=== PATIENT | female | born 1940 | race Caucasian/White ===

== ENCOUNTER 2022-03-06 21:18 | Inpatient (IN) | payer MEDICARE, SELFPAY ==
[2022-03-06] VITALS (14 sets, daily range): BP systolic 106–132; BP diastolic 52–73; PULSE 85–107; RESP 10–23; TEMP 36.8–37.3; O2SAT 95
--- NOTE | ~2022-03-06 | CT_ITS ---
EXAMINATION:CT diagnostic chest w con DATE: 03/07/2022 10:17 INDICATION: Abnormal chest radiograph. TECHNIQUE: Computed tomography (CT) of the chest was performed with 75 mL Omnipaque 350 intravenous c ontrast. Automated exposure control and iterative reconstruction technique were employed. The dose-le ngth product (DLP) was 154.34 mGy-cm. COMPARISON: Chest 2 views 03/06/2022 FINDINGS: There is mild scarring at the lung apices. There are airspace and groundglass opacities in left upper lobe predominantly involving apicoposterior segment with air bronchograms, consistent with pneumonia. There is mild involvement of adjacent superior segment left lower lobe. There is bronchie ctasis in right middle lobe and lingula. There is mild atelectasis in the inferior lungs. There is mi ld scarring in paraspinal right lower lobe. Calcified left lung nodules and calcified left hilar and mediastinal lymph nodes are consistent with old granulomatous disease. There is a trace left pleural effusion. The heart size is normal. No pericardial effusion. 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 IMPRESSION: 1. Left-sided pneumonia. Reviewed, dictated and finalized at location A. IMPRESSION: 1. Left-sided pneumonia.
--- NOTE | ~2022-03-06 | XR_ITS ---
EXAMINATION: XR chest 2V DATE: 03/06/2022 22:32 INDICATION: Fever and dizziness. TECHNIQUE: Frontal and lateral views of the chest were obtained. COMPARISON: None. FINDINGS: There are airspace opacities in apicoposterior segment left upper lobe. There is mild scarr ing at the lung apices. A calcified left lung nodule and calcified left hilar lymph nodes are consist ent with old granulomatous disease. No pleural effusion or pneumothorax. The heart size is normal. IMPRESSION: 1. Airspace opacities in apicoposterior segment left upper lobe, consistent with pneumonia. Chest CT with contrast is recommended to exclude malignancy. Reviewed, dictated and finalized at location A. IMPRESSION: 1. Airspace opacities in apicoposterior segment left upper lobe, consistent wit h pneumonia. Chest CT with contrast is recommended to exclude malignancy.
--- NOTE | 2022-03-06 22:08 | ECG_ITS ---
Measurements Intervals Reynolds Rate: 93 P: 162 WY: 125 QRS: 229 QRSD: 95 T: 134 QT: 352 QTc: 438 Interpretive Statements SINUS RHYTHM VENTRICULAR PREMATURE COMPLEXES LIMB LEAD REVERSAL LOW VOLTAGE- PRECORDIAL LEADS CANNOT RULE OUT SEPTAL INFARCT, AGE INDETERMINATE BASELINE ARTIFACT- I, II, AVR, AVL, V2, V4 ABNORMAL ECG NO PREVIOUS ECG AVAILABLE FOR COMPARISON Electronically Signed On 03-07-2022 6:51:02 CDT by Shan Guillaume D.O.
--- NOTE | 2022-03-06 22:11 | ED.GENADULT ---
HPI - General Adult General Chief complaint: Dizziness Stated complaint: fever Time Seen by Provider: 03/06/22 21:52 History of Present Illness HPI narrative: This is a 81-year-old female presenting to the ED with flu-like symptoms for 5 days. Patient's symptoms started on Monday. They include headaches, body aches, fatigue weakness and decreased oral intake. Her course has been fluctuating since then but has still been running fevers as high as 103.5. Patient came in today because she has been having episodes of palpitations and had 1 episode of presyncope that resolved when she sat down in a chair and rested. Patient has not been having chest pain, difficulty breathing, abdominal pain, nausea vomiting or diarrhea. She denies being vaccinated against COVID. She has no sick contacts at home. Related Data Home Medications Medication Instructions Recorded Confirmed alendronate 70 mg tablet mg PO 03/06/22 amlodipine 10 mg tablet mg 03/06/22 atorvastatin 10 mg tablet mg 03/06/22 levothyroxine 25 mcg tablet mcg 03/06/22 olmesartan 20 mg tablet mg 03/06/22 Allergies Allergy/AdvReac Type Severity Reaction Status Date / Time codeine Allergy Unconscious Verified 03/06/22 22:14 Review of Systems Review of Systems: CONSTITUTIONAL: Denies night sweats. EYES: No eye pain ENT: Denies rhinorrhea CARDIOVASCULAR: Denies palpitations RESPIRATORY: Denies hemoptysis GASTROINTESTINAL: Denies hematemesis GENITOURINARY: Denies hematuria. SKIN: Denies rash MUSCULOSKELETAL: Denies myalgia. NEUROLOGIC: Denies weakness. PSYCHIATRIC: Denies delusions [facility] Past Medical History Medical History (Updated 03/07/22 @ 00:06 by Martin Boyd MD) Hyperlipidemia Hypertension Surgical History Surgical History (Updated 03/06/22 @ 22:14 by Martin Boyd MD) H/O total knee replacement Exam Narrative: APPEARANCE: No apparent distress. Head atraumatic. EYES: PERRLA/EOMI, NOSE: Normal no drainage NECK: Supple, Trachea midline RESPIRATORY: CTAB, No increased work of breathing. CARDIOVASCULAR: S1S2 appreciated ABDOMINAL: Soft, nontender, nondistended, MUSCULOSKELETAl: No obvious deformities NEURO: Alert. Moving 4/4 extremities SKIN:: Warm, dry. Normal color PSYCHIATRIC: Normal affect Course Vital Signs Vital signs: Vital Signs Temperature 99.1 F 03/06/22 21:27 Pulse Rate 107 H 03/06/22 21:27 Respiratory Rate 20 03/06/22 21:27 Blood Pressure 106/73 03/06/22 21:27 Pulse Oximetry 95 03/06/22 21:27 Oxygen Delivery Room Air 03/06/22 21:27 Temperature 98.2 F 03/06/22 23:00 Pulse Rate 106 H 03/06/22 22:15 Respiratory Rate 14 03/06/22 22:15 Blood Pressure 115/65 03/06/22 22:01 Pulse Oximetry 95 03/06/22 21:27 Oxygen Delivery Room Air 03/06/22 21:27 Medical Decision Making MDM Narrative Medical decision making narrative: This is an 81-year-old female presenting ED with 5 days of flu-like symptoms. Basic lab work including troponin EKG and chest x-ray have been ordered. Urinalysis and COVID have also been ordered. Patient will be given 1 L of fluids for suspected dehydration. patient's lab work was significant for a small elevation in white blood cell count. The patient's urine was positive for nitrates, leuk esterases, greater than 75 white blood cells per high-power field. Patient's symptoms are consistent with a urinary tract infection. She will be started on ceftriaxone. Patient's initial troponin was negative. She has potassium of 3.3 to be repleted orally. Covid was negative. When I re-evaluated the patient her vital signs had improved. However my interpretation of her seat installer was atrial bigeminy. This resolved while I was in the room. This could be what is responsible for the patient's palpitations. The patient will be admitted to [facility] with [facility] for further evaluation. Vital Signs Vital Signs: Vital Signs Temperature 99.1 F 0
[2022-03-06 22:19] LABS: Glucose Point of Care 126 mg/dl (65-105)
[2022-03-06 22:32] LABS: Basophils Percent Auto 0.2 % (0.2-1.2); Eosinophils Percent Auto 0.1 % (0-4.4); Hematocrit 34.8 % (37.0-47.0); Hemoglobin 11.7 g/dL (12.0-15.0); Immature Granulocyte Absolute 0.04 K/mm3 (0.00-0.031); Immature Granulocyte Percent A 0.4 % (0-0.5); Lymphocytes Percent Auto 6.5 % (18.3-44.2); Mean Corpuscular HGB Conc 33.6 g/dl (32-36); Mean Corpuscular Hemoglobin 30.1 pg (26-34); Mean Corpuscular Volume 89.5 fl (80-100); Mean Platelet Volume 10.9 fl (7.4-10.4); Monocytes Absolute Auto 0.8 K/mm3 (0.1-0.6); Monocytes Percent Auto 7.8 % (2.6-8.5); Neutrophils Absolute Auto 9.2 K/mm3 (1.3-6.7); Platelet Count Result 187 k/mm3 (150-375); Red Blood Count 3.89 M/mm3 (4.2-5.4); Red Cell Distribution Width 12.4 % (11.5-14.5); White Blood Count 10.8 K/mm3 (4.5-10.0)
[2022-03-06] MEDS: ACETAMINOPHEN 500 MG TABLET 1000 MG PO (22:34)
[2022-03-06 22:35] LABS: SARS-CoV-2 RNA PCR Negative
[2022-03-06 22:45] LABS: Anion Gap 12 mmol/L (8-16); Blood Urea Nitrogen 13 mg/dL (7-17); Calcium 8.2 mg/dL (8.4-10.2); Carbon Dioxide 22 mmol/L (22-30); Chloride 103 mmol/L (98-107); Estimated CRCL calculation 37 ml/min; Estimated Glomerular Filt Rate 60; Glucose 129 mg/dL (65-110); Potassium 3.3 mmol/L (3.4-5.0); Sodium 137 mmol/L (137-145)
[2022-03-06 22:49] LABS: Appearance Urine Cloudy (Clear); Bilirubin Urine Negative (Negative); Blood Urine 2+ (Negative); Color Urine Yellow (Yellow); Glucose Urine UA Negative (Negative); Ketones Urine 1+ mg/dL (Negative); Leukocyte Esterase Ur 2+ LEU/UL (Negative); Nitrate Urine Positive (Negative); Protein Urine 2+ mg/dL (Negative); Specific Grav Ur 1.015 (1.001-1.035)
[2022-03-06 22:54] LABS: Add Urine Microscopic? YES; Bacteria Urine Trace /hpf; Mucus Urine Rare /lpf; Squamous Epithelial Cell Urine Rare /hpf (Few); WBC Urine >75 /hpf
[2022-03-06 22:56] LABS: Troponin I < 0.012 ng/mL (0.000-0.034)
[2022-03-06] MEDS: SODIUM CHLORIDE 0.9% IV 1,000 ML 999 ML IV CONT (23:23)
--- NOTE | 2022-03-06 23:55 | PM.IMHP ---
H&P: HPI History of Present Illness Date/Time: 03/06/22 23:55 Chief Complaint: Fever and dizziness. Narrative: This is a very pleasant 81-year-old with hypertension, hyperlipidemia, and hypothyroidism who presented to the ED via EMS from home for evaluation of fever and dizziness. She has not been feeling well off and on for the last 5 days with generalized malaise, fever to 103.5, decreased appetite, fatigue, and mild low back ache. She had a non-productive cough for one day this week but that has since resolved. She also complains of intermittent dizziness and sensations of racing heart which has been an ongoing issue for quite sometime. She sees no pattern as to when it occurs and she does not have chest pain or discomfort with that. She denies vertigo, reporting more lightheadedness, and she has not had any neurologic symptoms. Vital signs were stable on arrival to the emergency department. Pertinent labs include a white blood cell count of 10.8, hemoglobin of 11.7, sodium 137, potassium 3.3, BUN 13, creatinine 0.90, magnesium 1.9, TSH 1.950. Urine was positive for nitrates, 2+ leukocyte esterase, greater than 75 WBC, and trace bacteria. SARS-CoV-2 by PCR was negative. She is being admitted in this setting for IV antibiotics for presumed urinary tract infection though interestingly she has not had any symptoms of dysuria, urgency, hesitancy, or the like. She has had some aching in her lower back, however. Review of Systems Review of Systems: Twelve systems were reviewed. No syncope or near syncope. She has not had exertional chest pain or shortness of breath. She does have intermittent palpitations and has been told that she has PVCs in the past. On occasion her heart feels like it beats irregularly though she has no known history of atrial fibrillation. Except as documented, all other systems were reviewed and are negative. [facility] Past Medical History Medical History (Updated 03/07/22 @ 01:43 by Anaid Ndiaye PA-C) Hyperlipidemia Hypertension Hypothyroidism Surgical History Surgical History (Updated 03/07/22 @ 00:21 by Anaid Ndiaye PA-C) History of hysterectomy History of left knee replacement Family History Family History Sibling Cancer Father Cancer Mother Dementia Social History Social History (Updated 03/07/22 @ 16:00 by Anaid Ndiaye PA-C) Social History: The patient lives in her own home in [place]. She ambulates unassisted. 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 Lifelong nonsmoker. No alcohol or illicit substance abuse. She designates her daughter, Queta Baxter, as her surrogate decision maker and she wishes to be a full code. Spiritual care concerns: No Meds Home Medications and Allergies Home Medications Medication Instructions Recorded Confirmed Type alendronate 70 mg tablet 70 mg PO WEEKLY 03/06/22 03/07/22 History amlodipine 10 mg tablet 10 mg PO DAILY 03/06/22 03/07/22 History atorvastatin 10 mg tablet 10 mg PO DAILY 03/06/22 03/07/22 History levothyroxine 25 mcg tablet 25 mcg PO DAILY 03/06/22 03/07/22 History olmesartan 20 mg tablet 20 mg PO DAILY 03/06/22 03/07/22 History Allergies Allergy/AdvReac Type Severity Reaction Status Date / Time codeine Allergy Unconscious Verified 03/07/22 03:55 Vital Signs Vital Signs - 24 hr 03/06/22 21:27 03/06/22 21:49 03/06/22 21:50 Temperature 99.1 F Pulse Rate 107 H 101 H 98 Respiratory Rate 20 18 10 L Blood Pressure 106/73 127/52 L Pulse Oximetry 95 Oxygen Delivery Room Air 03/06/22 22:00 03/06/22 22:01 03/06/22 22:15 Temperature 99.2 F Pulse Rate 102 H 103 H 106 H Respiratory Rate 13 23 H 14 Blood Pressure 115/65 Pulse Oximetry Oxygen Delivery 03/06/22 23:00 Temperature 98.2 F Pulse Rate Respiratory Rate Blood Pressure Pulse Oximetry Oxygen Delivery Exam Narrative: General:
[2022-03-07] VITALS (29 sets, daily range): BP systolic 119–159; BP diastolic 53–70; PULSE 77–132; RESP 14–24; TEMP 36.5–37.8; O2SAT 91–97; BMI 24.2
[2022-03-07] MEDS: POTASSIUM CHLORIDE 20 MEQ TABLET PO (01:12)
[2022-03-07] MEDS: SODIUM CHLORIDE 0.9% IV 1,000 ML 100 ML IV CONT (01:19)
--- NOTE | 2022-03-07 01:45 | PC.NURSE ---
Hospitalist placed blood culture orders on patient. behavioral health consultant and hospitalist notified that patient did receive abx hours earlier. Hospitalist states she still wants the cultures drawn.
[2022-03-07 02:30] LABS: Alanine Aminotransferase 14 U/L (6-35); Albumin Level 3.1 g/dL (3.5-5.1); Alkaline Phosphatase 63 U/L (38-126); Aspartate Amino Transferase 18 U/L (14-36); Bilirubin,Total 0.8 mg/dL (0.2-1.3); Magnesium 1.9 mg/dL (1.6-2.3)
[2022-03-07 02:42] LABS: Troponin I < 0.012 ng/mL (0.000-0.034)
--- NOTE | 2022-03-07 03:26 | ECHO_ITS ---
Patient Info Name: Paty Cristina Age: 81 years : 1940 Gender: Female Ht: 64 in Wt: 144 lbs BSA: 1.73 m2 HR: 82 bpm BP: 135 / 57 mmHg Heart Rhythm: Sinus Rhythm Technical Quality: Fair Exam Date: 03/07/2022 8:02 AM Exam Location: [facility] Pulmonary Patient Status: Inpatient Admit Date: 03/06/2022 Staff Ordering Physician: Anaid Ndiaye PA-C Lug Breaker And Wire Puller: Mile Barnes RDCS Attending Provider: Nelson Lutz MD Referring Physician: Senthil MAYORGA; Exam Type: CA echo doppler color flow Study Info Indications R00.2 - Palpitations Complete two-dimensional, color flow and Doppler transthoracic echocardiogram is performed. Summary 1. Complete two-dimensional, color flow and Doppler transthoracic echocardiogram is performed. 2. Normal left and right ventricular size and systolic function. 3. Mild left atrial enlargement. 4. Mildly sclerotic aortic valve. Left Ventricle Left ventricular chamber dimension is normal. Left ventricular systolic function is normal, estimated at 60-65%. The left ventricular diastolic function is normal. Right Ventricle Right ventricular chamber dimension is normal. Left Atria Left atrial chamber dimension is mildly enlarged. Right Atria Right atrial chamber dimension is normal. Aortic Valve The aortic valve is trileaflet. There is mild aortic valve sclerosis. Pulmonic Valve The pulmonic valve is normal. Mitral Valve The mitral valve has normal leaflets. Tricuspid Valve The tricuspid valve leaflets are normal. Pericardium/Pleural The pericardium appears normal. Aorta The aortic root size at the sinus of Valsalva is normal. Left Ventricular Outflow Tract Name Value Normal LVOT 2D LVOT Diameter 1.9 cm LVOT Doppler LVOT Peak Gradient 5 mmHg LVOT Mean Gradient 3 mmHg LVOT VTI 22 cm LVOT VTI/AV VTI Ratio 0.9 LVOT Stroke Volume 65 ml LVOT CO 5.6 l/min LVOT CI 3.3 l/min/m2 Pulmonic Valve Name Value Normal RVOT Doppler RVOT Peak Gradient 2 mmHg PV Doppler PV Peak Gradient 5 mmHg Mitral Valve Name Value Normal MV Doppler MV Decel Pettis 731 cm/s2 MV PHT 38 ms MV Area (PHT) 5.9 cm2 4.0-5.0 MV Di
--- NOTE | 2022-03-07 03:27 | ADMGEN ---
This patient, Paty Cristina, was admitted to IMU Room 201-01. Patient/family oriented to hospital policies and general routines including ID bracelet, bed and alarms, visiting hours, pain management, procedures, bathroom and other care routines, personal items, smoking policy, room service/diet, and visiting hours. Information on how to activate the Rapid Response Team has been discussed. Patient/Family are encouraged to report perceived risks to care and to ask questions if they do not understand what they are told or what they should do.
[2022-03-07 05:33] LABS: Hematocrit 33.6 % (37.0-47.0); Hemoglobin 10.9 g/dL (12.0-15.0); Mean Corpuscular HGB Conc 32.4 g/dl (32-36); Mean Corpuscular Hemoglobin 29.5 pg (26-34); Mean Corpuscular Volume 91.1 fl (80-100); Mean Platelet Volume 12.2 fl (7.4-10.4); Platelet Count Result 183 k/mm3 (150-375); Red Blood Count 3.69 M/mm3 (4.2-5.4); Red Cell Distribution Width 12.3 % (11.5-14.5); White Blood Count 8.7 K/mm3 (4.5-10.0)
[2022-03-07 05:54] LABS: Anion Gap 7 mmol/L (8-16); Blood Urea Nitrogen 11 mg/dL (7-17); Calcium 7.7 mg/dL (8.4-10.2); Carbon Dioxide 23 mmol/L (22-30); Chloride 110 mmol/L (98-107); Estimated CRCL calculation 46 ml/min; Estimated Glomerular Filt Rate > 60; Glucose 118 mg/dL (65-110); Magnesium 2.1 mg/dL (1.6-2.3); Potassium 3.7 mmol/L (3.4-5.0); Sodium 140 mmol/L (137-145)
--- NOTE | 2022-03-07 18:03 | PM.IMPN ---
Progress Note: A&P Assessment and Plan (1) Febrile illness: Code(s): R50.9 - Fever, unspecified Status: Acute Assessment and Plan: She has been running a fever for the past 5 days, up to 103.5? Fahrenheit. Initially I was concerned that perhaps she had COVID however SARS-CoV-2 by PCR was negative. Her chest x-ray is unremarkable. UA is abnormal though she does not really have any symptoms of UTI aside from mild low back discomfort. Blood and urine cultures pending. Continue with empiric Rocephin for now. 03/07/2022 interval history 81-year-old female presented with fever, malaise and dizziness, initial chest was suspicious for pneumonia however radiologist concerning for malignancy and requested CT scan of the which does not show malignancy patient does have left-sided pneumonia most likely patient has community-acquired pneumonia, will treat the patient ceftriaxone 2 g IV q.day and Zithromax in 500 mg IV q.day, patient also had a cardiac echo which was essentially normal, will continue to monitor once patient clinically stable, will have a PT OT evaluate the patient further recommendation to. (2) Abnormal urinalysis: Code(s): R82.90 - Unspecified abnormal findings in urine Status: Acute Assessment and Plan: Continue empiric Rocephin, pending urine culture. (3) Palpitations: Code(s): R00.2 - Palpitations Status: Acute Assessment and Plan: An ongoing and intermittent problem for the patient She has ectopy and was briefly in bigeminy during my evaluation. She will be monitored on telemetry overnight. Echocardiogram has been ordered for a.m.. Monitor electrolytes and check TSH. Consider event monitor on discharge. (4) CAP (community acquired pneumonia): Code(s): J18.9 - Pneumonia, unspecified organism Status: Acute Assessment and Plan: plan is above Subjective Date/time seen: 03/07/22 18:03 HPI-Narrative: This is a very pleasant 81-year-old with hypertension, hyperlipidemia, and hypothyroidism who presented to the ED via EMS from home for evaluation of fever and dizziness. She has not been feeling well off and on for the last 5 days with generalized malaise, fever to 103.5, decreased appetite, fatigue, and mild low back ache. She had a non-productive cough for one day this week but that has since resolved. She also complains of intermittent dizziness and sensations of racing heart which has been an ongoing issue for quite sometime. She sees no pattern as to when it occurs and she does not have chest pain or discomfort with that. She denies vertigo, reporting more lightheadedness, and she has not had any neurologic symptoms. Vital signs were stable on arrival to the emergency department. Pertinent labs include a white blood cell count of 10.8, hemoglobin of 11.7, sodium 137, potassium 3.3, BUN 13, creatinine 0.90, magnesium 1.9, TSH 1.950. Urine was positive for nitrates, 2+ leukocyte esterase, greater than 75 WBC, and trace bacteria. SARS-CoV-2 by PCR was negative. She is being admitted in this setting for IV antibiotics for presumed urinary tract infection though interestingly she has not had any symptoms of dysuria, urgency, hesitancy, or the like.? She has had some aching in her lower back, however. 03/07/2022 interval history 81-year-old female presented with fever, malaise and dizziness, initial chest was suspicious for pneumonia however radiologist concerning for malignancy and requested CT scan of the which does not show malignancy patient does have left-sided pneumonia most likely patient has community-acquired pneumonia, will treat the patient ceftriaxone 2 g IV q.day and Zithromax in 500 mg IV q.day, patient also had a cardiac echo which was essentially normal, will continue to monitor once patient clinically stable, will have a PT OT evaluate the patient further recommendation to. Review of Systems Review of Systems: Twelve systems were reviewed. No sy
[2022-03-08] VITALS (16 sets, daily range): BP systolic 110–137; BP diastolic 51–98; PULSE 78–122; RESP 16; TEMP 36.6–37.6; O2SAT 91–97
--- NOTE | 2022-03-08 00:42 | PC.NURSE ---
This patient, Paty Cristina, was received from imu on 03/08/22 at 0042. Patient/family oriented to unit policies and routines
[2022-03-08 05:47] LABS: Hematocrit 33.6 % (37.0-47.0); Hemoglobin 11.3 g/dL (12.0-15.0); Mean Corpuscular HGB Conc 33.6 g/dl (32-36); Mean Corpuscular Volume 89.1 fl (80-100); Mean Platelet Volume 11.3 fl (7.4-10.4); Platelet Count Result 234 k/mm3 (150-375); Red Blood Count 3.77 M/mm3 (4.2-5.4); Red Cell Distribution Width 12.2 % (11.5-14.5); White Blood Count 8.2 K/mm3 (4.5-10.0)
[2022-03-08 05:54] LABS: Anion Gap 8 mmol/L (8-16); Blood Urea Nitrogen 7 mg/dL (7-17); Calcium 7.8 mg/dL (8.4-10.2); Carbon Dioxide 23 mmol/L (22-30); Chloride 107 mmol/L (98-107); Estimated CRCL calculation 46 ml/min; Estimated Glomerular Filt Rate > 60; Glucose 103 mg/dL (65-110); Potassium 3.3 mmol/L (3.4-5.0); Sodium 138 mmol/L (137-145)
[2022-03-08] MEDS: POTASSIUM CHLORIDE 20 MEQ TABLET 40 MEQ PO (11:19)
--- NOTE | 2022-03-08 16:18 | PM.IMPN ---
Progress Note: A&P Assessment and Plan (1) Febrile illness: Code(s): R50.9 - Fever, unspecified Status: Acute Assessment and Plan: She has been running a fever for the past 5 days, up to 103.5? Fahrenheit. Initially I was concerned that perhaps she had COVID however SARS-CoV-2 by PCR was negative. Her chest x-ray is unremarkable. UA is abnormal though she does not really have any symptoms of UTI aside from mild low back discomfort. Blood and urine cultures pending. Continue with empiric Rocephin for now. 03/08/2022 interval history 81-year-old female presented with fever, malaise and dizziness, initial chest x-ray was suspicious for pneumonia however radiologist concerning for malignancy and requested CT scan of the chest which did not show malignancy patient does have left-sided pneumonia most likely patient has community-acquired pneumonia, will treat the patient ceftriaxone 2 g IV q.day and Zithromax in 500 mg IV q.day, patient also had a cardiac echo which was essentially normal, Patient clinical symptoms are improving, will have a PT OT evaluate the patient further recommendation to follow (2) Abnormal urinalysis: Code(s): R82.90 - Unspecified abnormal findings in urine Status: Acute Assessment and Plan: Continue empiric Rocephin, pending urine culture. (3) Palpitations: Code(s): R00.2 - Palpitations Status: Acute Assessment and Plan: An ongoing and intermittent problem for the patient She has ectopy and was briefly in bigeminy during my evaluation. She will be monitored on telemetry overnight. Echocardiogram has been ordered for a.m.. Monitor electrolytes and check TSH. Consider event monitor on discharge. (4) CAP (community acquired pneumonia): Code(s): J18.9 - Pneumonia, unspecified organism Status: Acute Assessment and Plan: plan is above Subjective Date/time seen: 03/08/22 16:18 03/08/2022 interval history 81-year-old female presented with fever, malaise and dizziness, initial chest x-ray was suspicious for pneumonia however radiologist concerning for malignancy and requested CT scan of the chest which did not show malignancy patient does have left-sided pneumonia most likely patient has community-acquired pneumonia, will treat the patient ceftriaxone 2 g IV q.day and Zithromax in 500 mg IV q.day, patient also had a cardiac echo which was essentially normal, Patient clinical symptoms are improving, will have a PT OT evaluate the patient further recommendation to follow Exam Narrative: elderly frail Patient is comfortable, NAD HEENT: eyes are clear and none icteric LUNGS: normal respiratory effort ABD: not distended Lower extremities: no edema SKIN: nonjaundiced Neuro: grossly intact. Objective Data Vital Signs Vital Signs: Vital Signs - 24 hr 03/07/22 20:00 03/07/22 20:26 03/07/22 20:25 Temperature 98.6 F Pulse Rate 105 H Respiratory Rate 20 Blood Pressure 125/60 149/67 H 137/59 L Pulse Oximetry 94 Oxygen Delivery 03/07/22 20:25 03/07/22 20:00 03/07/22 20:00 Temperature Pulse Rate 132 H Respiratory Rate Blood Pressure 149/67 H Pulse Oximetry Oxygen Delivery Room Air 03/08/22 00:00 03/08/22 00:43 03/08/22 04:00 Temperature Pulse Rate 96 94 78 Respiratory Rate Blood Pressure Pulse Oximetry Oxygen Delivery 03/08/22 06:30 03/08/22 08:00 03/08/22 14:05 Temperature 98.3 F 97.9 F Pulse Rate 84 86 92 Respiratory Rate 16 16 Blood Pressure 137/63 133/51 L Pulse Oximetry 94 97 Oxygen Delivery 03/08/22 14:06 03/08/22 14:08 03/08/22 14:09 Temperature 97.9 F 97.9 F 97.9 F Pulse Rate 90 104 H 82 Respiratory Rate 16 16 16 Blood Pressure 133/51 L 115/56 L 133/98 H Pulse Oximetry 95 96 91 Oxygen Delivery 03/08/22 09:45 03/08/22 12:00 Temperature Pulse Rate 103 H Respiratory Rate Blood Pressure Pulse Oximetry Oxygen Delivery Room
[2022-03-08] MEDS: cefTRIAXone 2 GM in SODIUM CHLORIDE 0.9% IV 100 ML 200 ML IVPB (21:03)
[2022-03-09] VITALS (17 sets, daily range): BP systolic 94–127; BP diastolic 47–63; PULSE 52–113; RESP 16; TEMP 36.2–36.8; O2SAT 94–99
[2022-03-09] MEDS: LEVOTHYROXINE SODIUM 25 MCG TABLET PO (05:50)
[2022-03-09 06:04] LABS: Anion Gap 9 mmol/L (8-16); Blood Urea Nitrogen 11 mg/dL (7-17); Carbon Dioxide 23 mmol/L (22-30); Chloride 106 mmol/L (98-107); Estimated CRCL calculation 41 ml/min; Estimated Glomerular Filt Rate 60; Glucose 113 mg/dL (65-110); Sodium 138 mmol/L (137-145)
[2022-03-09 09:08] LABS: IFOB Positive Control Positive; Immunochemical Fecal Occult Bl Negative (N)
[2022-03-09] MEDS: amLODIPine BESYLATE 5 MG TABLET 10 MG PO (09:24)
[2022-03-09] MEDS: ATORVASTATIN 10 MG TABLET PO (09:24)
[2022-03-09] MEDS: OLMESARTAN MEDOXOMIL 20 MG TABLET PO (09:24)
--- NOTE | 2022-03-09 09:50 | PM.IMPN ---
Progress Note: A&P Assessment and Plan (1) Febrile illness: Code(s): R50.9 - Fever, unspecified Status: Acute Assessment and Plan: She has been running a fever for the past 5 days, up to 103.5? Fahrenheit. Initially I was concerned that perhaps she had COVID however SARS-CoV-2 by PCR was negative. Her chest x-ray is unremarkable. UA is abnormal though she does not really have any symptoms of UTI aside from mild low back discomfort. Blood and urine cultures pending. Continue with empiric Rocephin for now. 03/08/2022 interval history 81-year-old female presented with fever, malaise and dizziness, initial chest x-ray was suspicious for pneumonia however radiologist concerning for malignancy and requested CT scan of the chest which did not show malignancy patient does have left-sided pneumonia most likely patient has community-acquired pneumonia, will treat the patient ceftriaxone 2 g IV q.day and Zithromax in 500 mg IV q.day, patient also had a cardiac echo which was essentially normal, Patient clinical symptoms are improving, will have a PT OT evaluate the patient further recommendation to follow 03/09: T-max over night was 99.7. We are awaiting the final Blood culture results. Preliminarily they are negative. Final urine culture results demonstrates E. coli. Mostly salas sensitive. Continue Rocephin, Add Azithromycin based on CT results indicating PNA. Continue to await Blood cultures. Monitor labs and VS. (2) Abnormal urinalysis: Code(s): R82.90 - Unspecified abnormal findings in urine Status: Acute Assessment and Plan: Continue Rocephin as the urine culture demonstrates E. coli that is sensitive to Rocephin. (3) Palpitations: Code(s): R00.2 - Palpitations Status: Acute Assessment and Plan: Continue Tele ECHO performed and negative. EF 60-65% w/NLVSF. Has had episodes of Bigeminy. Consider Holter monitor at discharge. (4) CAP (community acquired pneumonia): Code(s): J18.9 - Pneumonia, unspecified organism Status: Acute Assessment and Plan: Rocephin and Azithromycin (5) Diarrhea: Code(s): R19.7 - Diarrhea, unspecified Status: Acute Assessment and Plan: First day today. Noted to be dark in color. Occult blood ordered. If positive, will consider consulting GI. Time Spent With Patient Time with patient: 15 - 25 minutes Subjective Date/time seen: 03/09/22 0840 This pt. was examined at the bedside in interval assessment. She at first was confused as to why she was even in the hospital. She then remembered she was outside in her garden and had palpatations. She does not remember having a fever at all. However, she has had a fever as high as 103.5. All workup indicated a left sided CAP. Treatment was started with Rocephin and Azithromycin and an ECHO was performed that was essentially normal. She is improving, and her Urine culture demonstrates E.coli that has near salas sensitivity to everything except Ampicillin and Cefazolin. Preliminary blood cultures are negative, but we are awaiting the final cultures. Pt. had a T-max of 99.7 last evening. As she lives at home alone, it is my concern that we must wait until she is truly ready to go home before we let her go. She currently denies any CP, dyspnea, N/V/D, Headache, dizziness, lightheadedness, urinary symptoms. She is on day #2 of Rocephin and #1 of Azithromycin. I am told by the patient that she had some diarrhea this morning and the tech advises that it is dark in color. An occult blood will be ordered. Review of Systems Review of Systems: All systems reviewed & are unremarkable except as noted in HPI and below Exam Const: General: comfortable and no acute distress HENMT: Mouth: Yes moist mucous membranes Eyes: General: appearance normal, both eyes and all related structures Neck: Neck: supple and no JVD Lymphatic: lymphadenopathy not noted Resp: Effort & In
[2022-03-09] MEDS: cefTRIAXone 2 GM in SODIUM CHLORIDE 0.9% IV 100 ML 200 ML IVPB (20:16)
[2022-03-10] VITALS (14 sets, daily range): BP systolic 99–128; BP diastolic 50–75; PULSE 82–95; RESP 16–18; TEMP 36.6–37; O2SAT 93–98
[2022-03-10 05:32] LABS: Basophils Percent Auto 0.4 % (0.2-1.2); Eosinophils Absolute Auto 0.1 K/mm3 (0-0.3); Eosinophils Percent Auto 1.5 % (0-4.4); Hematocrit 34.1 % (37.0-47.0); Hemoglobin 11.2 g/dL (12.0-15.0); Immature Granulocyte Absolute 0.03 K/mm3 (0.00-0.031); Immature Granulocyte Percent A 0.4 % (0-0.5); Lymphocytes Absolute Auto 1.13 K/mm3 (0.9-3.2); Lymphocytes Percent Auto 15.8 % (18.3-44.2); Mean Corpuscular HGB Conc 32.8 g/dl (32-36); Mean Corpuscular Hemoglobin 29.9 pg (26-34); Mean Corpuscular Volume 90.9 fl (80-100); Mean Platelet Volume 10.3 fl (7.4-10.4); Monocytes Absolute Auto 0.8 K/mm3 (0.1-0.6); Monocytes Percent Auto 10.8 % (2.6-8.5); Neutrophils Absolute Auto 5.1 K/mm3 (1.3-6.7); Neutrophils Percent Auto 71.1 % (45.5-73.1); Platelet Count Result 253 k/mm3 (150-375); Red Blood Count 3.75 M/mm3 (4.2-5.4); Red Cell Distribution Width 12.1 % (11.5-14.5); White Blood Count 7.1 K/mm3 (4.5-10.0)
[2022-03-10] MEDS: LEVOTHYROXINE SODIUM 25 MCG TABLET PO (05:38)
[2022-03-10 07:16] LABS: Anion Gap 9 mmol/L (8-16); Blood Urea Nitrogen 12 mg/dL (7-17); Carbon Dioxide 23 mmol/L (22-30); Chloride 107 mmol/L (98-107); Estimated CRCL calculation 41 ml/min; Estimated Glomerular Filt Rate 60; Glucose 108 mg/dL (65-110); Magnesium 2.3 mg/dL (1.6-2.3); Potassium 3.6 mmol/L (3.4-5.0); Sodium 139 mmol/L (137-145)
[2022-03-10] MEDS: ATORVASTATIN 10 MG TABLET PO (09:12)
[2022-03-10] MEDS: SODIUM CHLORIDE 0.9% IV 1,000 ML 100 ML IV CONT (11:12)
--- NOTE | 2022-03-10 13:20 | PM.IMPN ---
Progress Note: A&P Assessment and Plan (1) Febrile illness: Code(s): R50.9 - Fever, unspecified Status: Acute Assessment and Plan: She has been running a fever for the past 5 days, up to 103.5? Fahrenheit. Initially I was concerned that perhaps she had COVID however SARS-CoV-2 by PCR was negative. Her chest x-ray is unremarkable. UA is abnormal though she does not really have any symptoms of UTI aside from mild low back discomfort. Blood and urine cultures pending. Continue with empiric Rocephin for now. 03/08/2022 interval history 81-year-old female presented with fever, malaise and dizziness, initial chest x-ray was suspicious for pneumonia however radiologist concerning for malignancy and requested CT scan of the chest which did not show malignancy patient does have left-sided pneumonia most likely patient has community-acquired pneumonia, will treat the patient ceftriaxone 2 g IV q.day and Zithromax in 500 mg IV q.day, patient also had a cardiac echo which was essentially normal, Patient clinical symptoms are improving, will have a PT OT evaluate the patient further recommendation to follow 03/09: T-max over night was 99.7. We are awaiting the final Blood culture results. Preliminarily they are negative. Final urine culture results demonstrates E. coli. Mostly salas sensitive. Continue Rocephin, Add Azithromycin based on CT results indicating PNA. Continue to await Blood cultures. Monitor labs and VS. 03/10: Afebrile overnight. BC results are still pending and remain preliminarily negative. On day #3 of Rocephin and Day #2 of Azithromycin. (2) Abnormal urinalysis: Code(s): R82.90 - Unspecified abnormal findings in urine Status: Acute Assessment and Plan: Continue Rocephin as the urine culture demonstrates E. coli that is sensitive to Rocephin. Day #3 of abx. (3) Palpitations: Code(s): R00.2 - Palpitations Status: Acute Assessment and Plan: Continue Tele ECHO performed and negative. EF 60-65% w/NLVSF. Has had episodes of Bigeminy. Consider Holter monitor at discharge. (4) CAP (community acquired pneumonia): Code(s): J18.9 - Pneumonia, unspecified organism Status: Acute Assessment and Plan: Rocephin and Azithromycin (5) Diarrhea: Code(s): R19.7 - Diarrhea, unspecified Status: Acute Assessment and Plan: First day today. Noted to be dark in color. Occult blood ordered and is negative. Time Spent With Patient Time with patient: 15 - 25 minutes Subjective Date/time seen: 03/10/22 0830 This pt. was examined at the bedtime today in interval assessment. She reports that she was feeling better this morning but then her blood pressure was running lower than usual and upon checking orthostatic vitals, she was orthostatic. Her morning blood pressure meds were held. She is therefore held today and she will be given a 1L infusion of Normal Saline. She is otherwise without pain or complaint today and has not had any further diarrhea today. There is no dyspnea and no CP, headache, lightheadedness, or dizziness. Review of Systems Review of Systems: All systems reviewed & are unremarkable except as noted in HPI and below Exam Const: General: comfortable and no acute distress HENMT: Mouth: Yes moist mucous membranes Eyes: General: appearance normal, both eyes and all related structures Neck: Neck: supple and no JVD Lymphatic: lymphadenopathy not noted Resp: Effort & Inspection: normal respiratory effort Auscultation: clear to auscultation bilaterally Cardio: Rate: regular rate Rhythm: regular rhythm Heart sounds: no gallops, no murmurs and no rubs GI: Inspection: non-distended Auscultation: normal bowel sounds Skin: General skin exam: normal color, no rashes or lesions noted and no erythema Lesions: no lesions noted Rashes: no rashes noted Wounds: no wounds Neuro: General: gait normal Speech: no
[2022-03-10] MEDS: cefTRIAXone 2 GM in SODIUM CHLORIDE 0.9% IV 100 ML 200 ML IVPB (20:50)
[2022-03-11] VITALS (7 sets, daily range): BP systolic 118–140; BP diastolic 61–76; PULSE 78–103; RESP 18; TEMP 36.4; O2SAT 96
[2022-03-11] MEDS: LEVOTHYROXINE SODIUM 25 MCG TABLET PO (05:46)
--- NOTE | 2022-03-11 07:01 | PM.DS ---
DS: Admitting Diagnosis Discharge Date 03/11/2022 Admitting Diagnosis Febrile illness, abnormal urinalysis, palpitations DS: Discharge Diagnosis Discharge Diagnosis (1) Febrile illness: Code(s): R50.9 - Fever, unspecified Status: Acute Assessment and Plan: She has been running a fever for the past 5 days, up to 103.5? Fahrenheit. Initially I was concerned that perhaps she had COVID however SARS-CoV-2 by PCR was negative. Her chest x-ray is unremarkable. UA is abnormal though she does not really have any symptoms of UTI aside from mild low back discomfort. Blood and urine cultures pending. Continue with empiric Rocephin for now. 03/08/2022 interval history 81-year-old female presented with fever, malaise and dizziness, initial chest x-ray was suspicious for pneumonia however radiologist concerning for malignancy and requested CT scan of the chest which did not show malignancy patient does have left-sided pneumonia most likely patient has community-acquired pneumonia, will treat the patient ceftriaxone 2 g IV q.day and Zithromax in 500 mg IV q.day, patient also had a cardiac echo which was essentially normal, Patient clinical symptoms are improving, will have a PT OT evaluate the patient further recommendation to follow 03/09: T-max over night was 99.7. We are awaiting the final Blood culture results. Preliminarily they are negative. Final urine culture results demonstrates E. coli. Mostly salas sensitive. Continue Rocephin, Add Azithromycin based on CT results indicating PNA. Continue to await Blood cultures. Monitor labs and VS. 03/10: Afebrile overnight. BC results are still pending and remain preliminarily negative. On day #3 of Rocephin and Day #2 of Azithromycin. 03/11: patient has remained afebrile. She will be discharged today on oral cefdinir and azithromycin to complete a full course of antibiotics. (2) Abnormal urinalysis: Code(s): R82.90 - Unspecified abnormal findings in urine Status: Acute Assessment and Plan: Continue Rocephin as the urine culture demonstrates E. coli that is sensitive to Rocephin. Day #3 of abx. Patient to be discharged today on oral antibiotics. She has completed 3 days of Rocephin to complete full course of IV therapy. She will receive cefdinir and azithromycin as outpatient. (3) Palpitations: Code(s): R00.2 - Palpitations Status: Acute Assessment and Plan: Continue Tele ECHO performed and negative. EF 60-65% w/NLVSF. Has had episodes of Bigeminy. Consider Holter monitor at discharge. No further palpitations have occurred. (4) CAP (community acquired pneumonia): Code(s): J18.9 - Pneumonia, unspecified organism Status: Acute Assessment and Plan: Rocephin and Azithromycin Transition to oral antibiotics for discharge (5) Diarrhea: Code(s): R19.7 - Diarrhea, unspecified Status: Acute Assessment and Plan: First day today. Noted to be dark in color. Occult blood ordered and is negative. DS: Summary Hospital Course Reason for hospitalization: Febrile Illness Hospital Course: This pleasant, 81 year old female patient with significant past medical history hypertension, hyperlipidemia hypothyroidism, presented to the ER on 03/06/22, with complaints of fever, dizziness and generalized malaise for the last 5 days prior to presentation. T-max of 103.5?. She indicated she had also had a recent heart with her symptoms for some time. In the emergency room she was evaluated is was found to have stable vital signs with normal labs with the exception being abnormal urinalysis positive for nitrates, 2+ leukocyte esterase and greater than 75 wbc's. She was admitted to the hospital for IV antibiotic treatment of a urinary tract infection, that later grew out E. coli. She did also have imaging that indicated a possible pneumonia. Patient has received IV antibiotics since admission and h
[2022-03-11 07:13] LABS: Basophils Percent Auto 0.3 % (0.2-1.2); Eosinophils Absolute Auto 0.2 K/mm3 (0-0.3); Eosinophils Percent Auto 3.3 % (0-4.4); Hematocrit 34.2 % (37.0-47.0); Hemoglobin 11.2 g/dL (12.0-15.0); Immature Granulocyte Absolute 0.04 K/mm3 (0.00-0.031); Immature Granulocyte Percent A 0.6 % (0-0.5); Lymphocytes Absolute Auto 1.44 K/mm3 (0.9-3.2); Lymphocytes Percent Auto 20.4 % (18.3-44.2); Mean Corpuscular HGB Conc 32.7 g/dl (32-36); Mean Corpuscular Hemoglobin 30.1 pg (26-34); Mean Corpuscular Volume 91.9 fl (80-100); Mean Platelet Volume 10.9 fl (7.4-10.4); Monocytes Absolute Auto 0.7 K/mm3 (0.1-0.6); Monocytes Percent Auto 9.8 % (2.6-8.5); Neutrophils Absolute Auto 4.6 K/mm3 (1.3-6.7); Neutrophils Percent Auto 65.6 % (45.5-73.1); Platelet Count Result 285 k/mm3 (150-375); Red Blood Count 3.72 M/mm3 (4.2-5.4); Red Cell Distribution Width 12.1 % (11.5-14.5); White Blood Count 7.1 K/mm3 (4.5-10.0)
[2022-03-11 07:46] LABS: Alanine Aminotransferase 23 U/L (6-35); Alkaline Phosphatase 77 U/L (38-126); Anion Gap 8 mmol/L (8-16); Aspartate Amino Transferase 29 U/L (14-36); Bilirubin,Total 0.5 mg/dL (0.2-1.3); Blood Urea Nitrogen 9 mg/dL (7-17); Calcium 8.2 mg/dL (8.4-10.2); Carbon Dioxide 26 mmol/L (22-30); Chloride 108 mmol/L (98-107); Estimated CRCL calculation 41 ml/min; Estimated Glomerular Filt Rate 60; Glucose 99 mg/dL (65-110); Magnesium 2.3 mg/dL (1.6-2.3); Sodium 142 mmol/L (137-145)
[2022-03-11] MEDS: ATORVASTATIN 10 MG TABLET PO (08:13)
[2022-03-11] MEDS: amLODIPine BESYLATE 5 MG TABLET 10 MG PO (08:13)
[2022-03-11] MEDS: OLMESARTAN MEDOXOMIL 20 MG TABLET PO (08:13)
== END 2022-03-11 10:40 | disposition home or self-care (01) | DRG 689 ==
LOC: ANHED 03-07 00:06 → ANHIMU 03-07 02:14 → ANH2MED 03-08 00:38
PROVIDERS: Family Medicine; Nurse Practitioner Family; Physician Assistant; Admitting Provider Internal Medicine; Emergency Provider Emergency Medicine; PCP Internal Medicine; Visit Provider Nurse Practitioner Adult Health
DX: N39.0 Urinary tract infection, site not specified (principal); J18.9 Pneumonia, unspecified organism; B96.20 Unspecified Escherichia coli [E. coli] as the cause of diseases classified elsewhere; Z20.822 Contact with and (suspected) exposure to COVID-19; R00.2 Palpitations; E86.0 Dehydration; I10 Essential (primary) hypertension; E78.5 Hyperlipidemia, unspecified; E03.9 Hypothyroidism, unspecified; R19.7 Diarrhea, unspecified; Z96.652 Presence of left artificial knee joint; Z90.710 Acquired absence of both cervix and uterus; Z28.310 Unvaccinated for COVID-19
CPT/HCPCS: 36415; 71046; 71260; 80048; 80053; 80076; 81001; 82274; 82948; 83735; 84443; 84484; 85025; 85027; 87040; 87077; 87086; 87186; 93005; 93306; 96365; 97161; 97165; 99285; A9270; C9803; J0456; J0696; J7030; Q9967; U0003; U0005

== ENCOUNTER 2024-02-02 16:58 | Emergency (ER) | payer MEDICARE, SELFPAY ==
[2024-02-02 17:00] VITALS: BP 185/75; PULSE 65; RESP 20; TEMP 36.6; O2SAT 98
--- NOTE | 2024-02-02 18:24 | PC.NURSE ---
Pt states she is feeling better and going to go home. Will return if symptoms worsen. Pt exits ed in NAD [id number]
== END 2024-02-02 19:05 | disposition left against medical advice (07) ==
LOC: ANHED 18:33
PROVIDERS: PCP Internal Medicine
DX: R42 Dizziness and giddiness (principal)
CPT/HCPCS: 99199

== ENCOUNTER 2024-11-14 21:02 | Emergency (ER) | payer MEDICARE, SELFPAY ==
--- NOTE | ~2024-11-14 | CT_ITS ---
CT chest abdomen pelvis w con Ordering provider: Gisele Lama PA-C History: 84 years Female with . hypoxia, abd pain, ams . Comparison: None. Technique: CT chest with IV contrast. CT abdomen and pelvis CT abdomen and pelvis with IV and with or al contrast. Radiation reduction technique utilized.The dose-length product was 334.15 mGy-cm. 100 mL Omnipaque 35 0 was given IV. FINDINGS: CHEST: --VISUALIZED THORACIC INLET: Normal. --Pulmonary embolism: Filling defects seen in the branches of the right lower lobe suggestive of pulm onary embolism. --MEDIASTINUM: Aorta/coronary arteries: Mild atheromatous disease. Heart/other: The heart is slightly enlarged. Enlargement of the right ventricle is noted. Lymph nodes: No mediastinal or hilar adenopathy. Small right hilar lymph node is noted. --LUNGS: Left lower lobe atelectasis versus pneumonia with adjacent moderate hemopneumothorax no pulm onary nodules or masses. Large pneumothorax is seen on the left side of more than 70%. Radiopaque body is seen in the area of the left costophrenic angle which may also be a bony fragment. --MUSCULOSKELETAL: Soft tissues: The superficial soft tissues are normal. Bones: Fracture of the left ninth, 10th and 11th ribs is noted with deformity. Age appropriate degene rative changes of the spine. No suspicious bony lytic or sclerotic lesions. ABDOMEN/PELVIS: --MUSCULOSKELETAL: Bones: Age appropriate degenerative changes of the spine. Minimal anterolisthesis at the level of L4- L5. No suspicious bony lytic or sclerotic lesions. Right hip arthroplasty. Superficial soft tissues: The superficial soft tissues are normal. --UPPER ABDOMINAL ORGANS: Liver: Slight dilatation of the intrahepatic biliary ducts. Gallbladder: Normal. Spleen: Soft tissue density seen posterior to the spleen most likely in the chest. Artifacts are seen in the area. Stomach/duodenum: Normal. Pancreas: Normal. Adrenals: Normal. Kidneys: Small Cyst in the left kidney lower pole. Tiny cysts in the right kidney. --PELVIC ORGANS: The bladder is underfilled. No bladder stones. Artifacts are seen in the pelvis. Le ft ovarian cyst is noted measuring 2 cm. --BOWEL AND MESENTERY: Colon: No evidence of diverticulitis.. Normal appendix. Small Bowel: Normal. No obstruction. Peritoneum/mesentery: No free air or free fluid. No mesenteric lymphadenopathy. --RETROPERITONEUM: Mild atheromatous disease of the abdominal aorta. No retroperitoneal lymphadenop athy. IMPRESSION: CHEST: 1. Left large pneumothorax of about 70%. Multiple rib fractures involving the left ninth, 10th and 1 1th ribs with deformity. 2. Left lower lobe atelectasis with left hemothorax. 3. Right lower lobe segmental and subsegmental pulmonary embolism. 4. Foreign body seen in the left hemithorax area below the ribs.a bullet should be considered. ABDOMEN/PELVIS: 1. No evidence of acute abdominal process. 2. Minimal dilatation of the biliary tree. 3. Bilateral renal cysts. Physician: Gisele Lama PA-C Was notified with the result of the patient at 11:50 PM on on November 14, 2024. Reviewed, dictated and finalized at location A. IMPRESSION: CHEST: 1. Left large pneumothorax of about 70%. Multiple rib fractures involving the left ninth, 10th and 11th ribs with deformity. 2. Left lower lobe atelectasis with left hemothorax. 3. Right lower lobe segmental and subsegmental pulmonary embolism. 4. Foreign body seen in the left hemithorax area below the ribs.a bullet shoul d be considered. ABDOMEN/PELVIS: 1. No evidence of acute abdominal process. 2. Minimal dilatation of the biliary tree. 3. Bilateral renal cysts. Physician: Gisele Lama PA-C Was notified with the result of the patient at 11:50 PM on on November 14, 2024.
--- NOTE | ~2024-11-14 | XR_ITS ---
Portable chest x-ray Comparison: None Clinical History: Needle decompression Findings: Moderate left pneumothorax is present. Possible cardiac consolidation or pneumonia. Right lung clear. Cardiomediastinal silhouette is stable. There is fracture of the left ninth and 10th rib s posteriorly, with significant displacement.. Impression: Moderate left pneumothorax with probable left basilar atelectasis. Correlate for pneumonia. Displaced fractures of the left ninth and 10th ribs. Reviewed, dictated and finalized at location . Impression: Moderate left pneumothorax with probable left basilar atelectasis. Correlate fo r pneumonia. Displaced fractures of the left ninth and 10th ribs.
--- NOTE | ~2024-11-14 | XR_ITS ---
Portable chest x-ray Comparison: 11/15/2024 at 12:53 AM Clinical History: Pneumothorax Findings: Large left pneumothorax present, probably increased from prior exam, now extending along t he lateral aspect of the left lung base and midlung. Right lung remains clear. Cardiomediastinal ifeanyi houette is stable. Stable displaced fractures of the left ninth and 10th ribs. Impression: Large left pneumothorax is increased from prior exam. Stable fractures of the left ninth and 10th ribs. Reviewed, dictated and finalized at location . Impression: Large left pneumothorax is increased from prior exam. Stable fractures of the left ninth and 10th ribs.
--- NOTE | ~2024-11-14 | CT_ITS ---
CT brain wo con Ordering provider: Gisele Lama PA-C History: 84 years Female with . ams . Comparison: None. Technique: CT of the head without contrast. Radiation reduction technique utilized.The dose-length pr oduct was 605.33 mGy-cm. FINDINGS: BRAIN PARENCHYMA AND CSF SPACES: Mild leukoaraiosis and diffuse cortical atrophy. Mild atheromatous d isease. 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 No midline shift, mass effect or hemorrha ge. The brain parenchyma and CSF spaces are otherwise normal. VISUALIZED PARANASAL SINUSES: Well aerated. MASTOIDS: Well aerated. BONES: The bones appear intact. SOFT TISSUES: Visualized nasopharynx is normal. Superficial soft tissues are normal. IMPRESSION: No acute intracranial findings. Reviewed, dictated and finalized at location A.
[2024-11-14 21:02] VITALS: BP 115/67; PULSE 96; RESP 19; TEMP 36.4; O2SAT 93
--- NOTE | 2024-11-14 21:24 | ECG_ITS ---
Test Date: 2024-11-14 21:56:58 Measurements Intervals [place] Rate: 87 P: 26 MN: 139 QRS: -57 QRSD: 89 T: 43 QT: 376 QTc: 453 Interpretive Statements SINUS RHYTHM WITH OCCASIONAL SUPRAVENTRICULAR PREMATURE COMPLEXES LEFT ANTERIOR FASCICULAR BLOCK [QRS AXIS <= -45, QR IN I, RS IN II] POSSIBLE ANTERIOR MYOCARDIAL INFARCTION , OF INDETERMINATE AGE [30 ms Q WAVE IN V3/V4, OR R < 0.2 mV IN V4] INFERIOR MYOCARDIAL INFARCTION , PROBABLY OLD [40+ ms Q WAVE AND/OR ST/T ABNORMALITY IN II/aVF] No previous ECG available for comparison Electronically Signed On 11-15-2024 15:04:26 CDT by Jose G Osei M.D.
--- OUTSIDE RECORDS SUMMARY | 2024-11-14 21:33 | XMS_ITS | Clinical Summary ---
Author Organization [facility] [place] [address] [place] [address] Care Team Providers Care Construction Inspector Name Role Phone Luiza Gibbs Jacki JAMESON Unavailable [phone] Lukas Herrera MD Primary Care Provider [phone] Allergies Active Allergy Reactions Criticality Noted Date Comments Codeine Nausea & Vomiting Low 02/25/2024 Medications atorvastatin (LIPITOR) 10 mg tablet Take 1 tablet (10 mg total) by mouth daily Active levothyroxine (SYNTHROID) 50 mcg tablet Take 1 tablet (50 mcg total) by mouth managing partner before breakfast Active metoprolol XL (Toprol XL) 25 mg extended release tablet Take 1 tablet (25 mg total) by mouth daily 4 Active olmesartan (BENICAR) 20 mg tablet Take 1 tablet (20 mg total) by mouth daily Active sertraline (ZOLOFT) 50 mg tablet Take 1 tablet (50 mg total) by mouth daily 5 Active alendronate (FOSAMAX) 70 mg tablet Take 1 tablet (70 mg total) by mouth every 7 days Take in the morning with a full glass of water, on an empty stomach, and do not take anything else by mouth or lie down for the next 30 min. Every Monday Active guaiFENesin ER (MUCINEX) 600 mg 12 hr tablet Take 1 tablet (600 mg total) by mouth 2 (two) times a day as needed for cough Active ondansetron (ZOFRAN) 4 mg tablet Take 1 tablet (4 mg total) by mouth every 6 (six) hours as needed for nausea or vomiting Active calcium carb,glucon-padma min D2 500 mg-5 mcg (200 unit) tablet Take 1 tablet by mouth daily Active apixaban (ELIQUIS) 2.5 mg tabletIndication s:VTE Prophylaxis Take 1 tablet (2.5 mg total) by mouth every 12 (twelve) hours for 26 doses 26 tablet 5 Active tamsulosin (FLOMAX) 0.4 mg extended release capsule Take 1 capsule (0.4 mg total) by mouth daily with dinner 30 capsule 5 Active ALPRAZolam (XANAX) 0.25 mg tablet Take 1 tablet (0.25 mg total) by mouth 2 (two) times a day as needed for anxiety for up to 14 days 28 tablet 5 Active Active Problems Problem Noted Date Diagnosed Date Transient alteration of awareness 09/12/2024 Assessment & Plan (09/12/2024 2:40 PM CDT): Episodes witnessed by staff and described as brief loss of consciousness, has never lost pulse or breathing, then becomes arousable and typically with position change Consider orthostasis vs arrhythmia vs carotid disease vs infectious/metabolic (less likely) Will start midodrine 5mg BID, consider holter monitor although with cognitive impairment would likely not tolerate event monitor. Parameters in place to hold midodrine for SBP>130 Continue metoprolol and CCB for now, adjust PRN Encourage oral hydration Labs this week unremarkable EKG ordered Monitor for supine hypertension Status post hip hemiarthroplasty 09/11/2024 Assessment & Plan (09/16/2024 9:25 AM CDT): Aminata 08/25 following fall Continue PT/OT with WBAT Tolerating therapy well Continue tylenol and avoid mood altering pain medications given cognitive impairment and fall risk Ortho f/u tomorrow as scheduled Assessment & Plan (09/11/2024 2:05 PM CDT): Patient is doing okay overall. X-rays were reviewed with the patient today in clinic and demonstrate hardware in good alignment without apparent complication. Patient's pain is under control, pain medication not refilled today. She will continue to work with physical therapy at her facility. There is some concern for superficial surgical site infection; we will start doxycycline 100 mg b.i.d. for 10 days. Devante were removed today in clinic and Steri-Strips applied. Patient will continue to keep the surgical site clean and dry. Signs of infection were reviewed with the patient including increased swelling and erythema along the surgical site, purulent drainage from the surgical site, fever, chills and they will notify us they develop any of these signs. She will follow up with me in 1 week for a wound check. These instructions were written down for the patient and sent back to her facility. Expressed understanding and agreement with the plan. Syncope and collapse 09/01/2024 Assessment & Plan (09/24/2024 3:57 PM CDT): Recurrent episodes while in rehab, stable of recent Discussed with POA potentially following up for holter monitor vs additional work up Basic labs, CXR and UA unremarkable Assessment & Plan (09/03/2024 1:11 PM CDT): Potential recurrent syncope today No seizure activity reported (no tongue laceration, urinary incontinence, tonic/clonic activity) Qshift neuro checks for 24 hours Glucose stable Obtain stat labs, CBC, BMP, UA Assessment & Plan (09/01/2024 9:15 PM CDT): Witnessed episode by staff and resolved when layed in bed Treated with IVF gabapentin 300mg TID DC (unclear when this was started, was not a home med for her) No EKG for review No additional imaging Consider orthostasis vs PE vs arrhythmia Will need to monitor closely, check basic labs with admission, encourage oral hydration Urinary retention 08/29/2024 Assessment & Plan (09/24/2024 3:58 PM CDT): Resolved, monitor for recurrence May benefit from PRN bladder scan Assessment & Plan (09/07/2024 9:09 PM CDT): Nursing given orders for senior DC today Allow 6 hrs for void trial, bladder scan prn Assist with toileting and continue flomax for now Assessment & Plan (09/03/2024 1:10 PM CDT): Resolved Senior removed Bladder scan reassuring without retention Continue Flomax 0.4 mg daily Assessment & Plan (09/01/2024 9:16 PM CDT): DC with senior on flomax Will need voiding trial soon likely 48 hrs Consider holding flomax if concern for orthostasis Assessment & Plan (08/29/2024 2:44 PM CDT): New, since admission Likely secondary to injury/anesthesia Will try removal and voiding trial in next 24-48 hours Senior catheter in place, stable at this time Urology follow up scheduled 09/09 Hypoxia 08/29/2024 Assessment & Plan (09/07/2024 8:54 PM CDT): Continue supplemental O2 Wean as able CXR unremarkable in ER PE less likely as remains on eliquis Assessment & Plan (09/03/2024 1:12 PM CDT): Resolved Pulse ox 98% on room air today Assessment & Plan (09/01/2024 9:07 PM CDT): Unclear etiology with no inpatient work up noted Consider CXR Will check basic labs with admission Continue eliquis with risk for PE Encourage OOB activity as able No reported cough or fever Consider viral illness Respiratory panel negative in ER Assessment & Plan (08/29/2024 2:47 PM CDT): New hypoxia at time of admission Currently requiring 2 L via NC for hypoxia to 70% Concern for potential PE vs infection (seems unlikely given symptoms) vs baseline hypoxia that had been undiagnosed vs anemia given skin pale and Hb 8.5 at DC from hospital Discussed with family at length they do not want patient sent back to the hospital Discussed stability with patient and family including risks of PE Plan for CBC, BMP, CXR, bilateral DVT study; continue to monitor and wean oxygen as tolerated Moderate protein-calorie malnutrition 08/25/2024 Assessment & Plan (09/03/2024 1:10 PM CDT): Chronic, stable Weight 130.4 lbs Continue to monitor with weekly weights while at rehab Assessment & Plan (08/29/2024 2:42 PM CDT): Chronic, stable Weight 130 lbs Continue to monitor with weekly weights while at rehab Closed fracture of right hip , with routine healing, subsequent encounter 08/24/2024 Assessment & Plan (09/24/2024 3:54 PM CDT): S/p hemiarthroplasty dr Coates 08/25 following fall Ambulates with gait belt and walker Surgical incision healing as expected PRN tylenol available OK for WBAT to continue PT/OT DC to [facility] care [facility] with ortho f/u as scheduled Assessment & Plan (09/20/2024 4:55 PM CDT): S/p hemiarthroplasty dr Coates 08/25 following fall No change in sx today following same level fall Ambulates with gait belt and walker Surgical incision healing as expected Denies pain PRN tylenol available Continue PO doxy per ortho recs OK for WBAT to continue PT/OT DC to [facility] care [facility] pending Assessment & Plan (09/12/2024 2:41 PM CDT): Surgical incision healing as expected Denies pain PRN tylenol available Continue PO doxy per ortho recs OK for WBAT to continue PT/OT Assessment & Plan (09/07/2024 9:08 PM CDT): S/p hemiarthroplasty 08/25 following fall in [facility] Repeat films with appropriate anatomic alignment following fall on 08/31 Continue BID eliquis for now, monitor given fall risk and stable anemia F/u ortho outpatient as scheduled Assessment & Plan (09/03/2024 1:10 PM CDT): S/p hemiarthroplasty 08/25 [place] Complicated recovery given dementia, urinary retention, hypoxia and syncope Hb has been downtrending, 8.2 --> 7.5 --> stat repeat ordered 09/03 Continue BID eliquis, to be discontinued 09/10/24 Ortho f/u 09/11 WBAT Assessment & Plan (09/01/2024 9:25 PM CDT): S/p hemiarthroplasty 08/25 [place] Complicated recovery given dementia, urinary retention, hypoxia and syncope Likely will need additional work up Anxious and agitated today Attempt to avoid mood altering drugs as able but is a fall risk at present due to shaking and irritability, continue prn oxycodone, may need short course low dose benzo as adjusts to SNF with baseline dementia Continue BID eliquis, remains a fall risk Ortho f/u 09/09 WBAT Assessment & Plan (08/29/2024 2:50 PM CDT): Acute, improving Secondary to injury from GLF Patient s/p right hemiarthroplasty, ortho follow up scheduled 09/11 Incision c/d/I, continue daily bandage changes/wound care Acetaminophen 650 mg TID for hip pain No opiates per family as pt does not tolerate Continue Calcium supplementation Vitamin D 500 mcg one tablet by mouth daily Sensation of fullness in both ears 05/02/2024 Assessment & Plan (05/02/2024 7:49 PM POWERHOUSE ELECTRICIAN): Normal exam today, consider getting hearing checked, nurse to discuss with family audiology vs ENT, notify provider for change in condition 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, psychotic disturbance, mood disturbance, or anxiety 03/08/2024 Assessment & Plan (09/24/2024 3:55 PM CDT): Pleasant and cooperative with intermittent anxiety Continue sertraline 50 mg daily PRN alprazolam for restlesness; decreased dose to 0.25mg BID PRN Limit use as able Remains a fall risk Continue supportive care, promote sleep hygiene, encourage oral nutrition and hydration Would benefit from memory care programming at discharge Assessment & Plan (09/20/2024 4:56 PM CDT): Stable and cooperative on exam today, intermittent anxiety Continue sertraline 50 mg daily PRN alprazolam for restlesness; decreased dose to 0.25mg BID PRN Limit use as able Remains a fall risk Continue supportive care, promote sleep hygiene, encourage oral nutrition and hydration Would benefit from memory care programming Assessment & Plan (09/16/2024 9:23 AM CDT): Stable and cooperative on exam today, intermittent anxiety Continue sertraline 50 mg daily PRN alprazolam for restlesness; DC as able Plans to return to [facility] following rehab stay although will need to become more independent with care and has poor safety awareness Likely will need transition to memory care unit, family is aware Assessment & Plan (09/12/2024 2:42 PM CDT): Worsening cognitive decline throughout rehab course, confused at baseline Continue sertraline 50 mg daily PRN alprazolam for restlesness; DC as able Plans to return to [facility] following rehab stay although will need to become more independent with care and has poor safety awareness Likely will need transition to memory care unit, family is aware Assessment & Plan (09/07/2024 9:10 PM CDT): Worsening cognition as expected postoperatively Continue sertraline 50 mg daily PRN alprazolam for restlesness; DC as able Plans to return to [facility] following rehab stay Assessment & Plan (09/03/2024 1:07 PM CDT): Chronic, stable Family does not want patient to receive opiate medications, discontinued Robaxin discontinued Continue sertraline 50 mg daily Assessment & Plan (09/01/2024 9:05 PM CDT): Notable increase in anxiety from baseline Remains a fall risk Consider pain contributing factor Will start low dose oxycodone 2.5mg PRN q4 hrs Hold robaxin Continue sertraline Promote sleep hygiene Pt well known to me from [facility] and has severe cognitive impairment, at high risk for post operative complications and fall Assessment & Plan (08/29/2024 2:43 PM CDT): Chronic, stable Pt is not agitated Alert to person, not to place or time Baseline Assessment & Plan (07/12/2024 7:26 PM POWERHOUSE ELECTRICIAN): Has adjusted well to [facility] setting Pleasantly confused with no reports of anxiety or agitation Continue sertraline 25 mg daily Monitor weight and nutrition Remote sleep hygiene Okay to DC HS melatonin Assessment & Plan (05/02/2024 7:50 PM POWERHOUSE ELECTRICIAN): Stable on sertraline 25mg daily, continue supportive care, monitor safety checks given poor cognition Assessment & Plan (03/08/2024 11:50 AM CDT): Likely has a dementia diagnosis, will perform SLUMS although unclear if pt can follow basic instructions to complete exam. Recent labs, urine and imaging reviewed and reassuring. Discussed with son disease process and what to expect given transition to new environment, fall risk and concern for sleep disorder. Will start sertraline 25mg daily and melatonin 3mg HS. There have been no reported episodes of anxiety or agitation. Discussed with staff to include patient in facility activities as she was involved in these in [facility] prior to decline. Check basic labs this week, encourage oral nutrition and hydration, promote sleep hygiene and monitor for falls. Likely would benefit from transition to memory care as condition progresses. Age-related osteoporosis wit hout current pathological fracture 03/08/2024 Assessment & Plan (07/12/2024 7:37 PM POWERHOUSE ELECTRICIAN): Continue alendronate Add calcium supplement with vitamin-D Currently on vitamin-D 3 2000 IU every other day Diarrhea may be from alendronate Monitor for symptoms No reported falls Assessment & Plan (03/08/2024 11:51 AM CDT): Continue alendronate, likely needs vitamin D supplement, will check with admission labs Primary hypertension 02/29/2024 Assessment & Plan (09/24/2024 3:56 PM CDT): Stable on olmesartan and toprol PRN midodrine available 5mg BID for sx of orthostasis, has not been requiring Consider MSA vs parkinsons given recurrence of episodes Stable at present Encourage oral hydration Assessment & Plan (09/20/2024 4:57 PM CDT): Stable on olmesartan and toprol PRN midodrine available 5mg BID for sx of orthostasis Consider MSA vs parkinsons given recurrence of episodes Stable at present Encourage oral hydration Assessment & Plan (09/16/2024 9:23 AM CDT): Stable on olmesartan and toprol Monitor BP closely with transient episodes of positional hypotension and near syncope Assessment & Plan (09/07/2024 9:11 PM CDT): Stable on olmesartan and toprol Continue to monitor and avoid hypotension in frail elderly Assessment & Plan (09/03/2024 1:06 PM CDT): Stable, chronic I reviewed the patient's BP log, 142/74 this morning Continue Olmesartan 20 mg one time daily, Toprol XL 25 mg daily Assessment & Plan (09/01/2024 9:04 PM CDT): BP soft inpatient and olmesartan and metoprolol held Resumed at DC Will need to monitor and hold as necessary Assessment & Plan (08/29/2024 2:45 PM CDT): Chronic, stable Continue Metoprolol 25 mg by mouth daily, and Olmesartan 20 mg daily BP has been appropriate, logs reviewed, 146/54 today GDR as able for BP goal less than 150 over less than 90 Assessment & Plan (07/12/2024 7:22 PM POWERHOUSE ELECTRICIAN): BP logs reviewed, SBP 110-120 Continue olmesartan and metoprolol GDR as able for BP goal less than 150 over less than 90 Assessment & Plan (03/08/2024 11:55 AM CDT): Continue metoprolol and olmesartan per home med regimen, consider GDR if BP allows, goal <150/<90 Mixed hyperlipidemia 02/29/2024 Assessment & Plan (09/24/2024 3:57 PM CDT): Continue atorvastatin 10 mg daily per home med F/u with PCP Assessment & Plan (09/03/2024 1:06 PM CDT): Chronic, stable Continue atorvastatin 10 mg daily per home med Assessment & Plan (09/01/2024 9:06 PM CDT): Continue atorvastatin per home med Assessment & Plan (08/29/2024 2:45 PM CDT): Chronic, stable Continue atorvastatin 10 mg 1 tablet by mouth daily Assessment & Plan (07/12/2024 7:26 PM POWERHOUSE ELECTRICIAN): Lipid panel stable on atorvastatin 10 mg Ldl 86 Chol 150 Trig 73 Continue for now Plan to DC at subsequent visit given age and frailty Assessment & Plan (03/08/2024 11:51 AM CDT): Continue atorvastatin, check lipid panel with admission labs Resolved Problems Problem Noted Date Diagnosed Date Resolved Date Functional diarrhea 07/12/2024 09/02/19 25 Assessment & Plan (07/12/2024 7:37 PM POWERHOUSE ELECTRICIAN): Describes as in the morning only and feels this is related to HS melatonin, likely unrelated but we will DC HS melatonin for now Check BMP with routine labs Abdominal exam benign Encourage oral hydration Dizziness 02/29/2024 09/07/2024 Assessment & Plan (05/02/2024 7:50 PM POWERHOUSE ELECTRICIAN): Exam is benign, encourage oral hydration, recent labs reassuring, will work up if sx persist Assessment & Plan (03/08/2024 11:50 AM CDT): Vertigo considered given recurrence of sx and improvement with meclizine, ok to continue low dose prn for now; DC dramamine, discussed with son risks Encounters Date Type Department Care Team Description 09/23/2024 Telephone [facility] Post Acute [facility] [address] [place] [phone] Kristi Anthony MA 09/19/2024 NH/SNF Visit [facility] Post Acute Care of [address] [phone] Marian Garay NP Closed fracture of right hip, with routine healing, subsequent encounter (Primary Dx); 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 behavioral disturbance, psychotic disturbance, mood disturbance, or anxiety (HCC); Primary hypertension; Syncope and collapse; Mixed hyperlipidemia; Urinary retention 09/17/2024 NH/SNF Visit [facility] Post [address] [phone] Marian Garay NP Closed fracture of right hip, with routine healing, subsequent encounter (Primary Dx); 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 behavioral disturbance, psychotic disturbance, mood disturbance, or anxiety (HCC); Primary hypertension 09/12/2024 NH/SNF Visit [facility] Post [facility] Care [address] [phone] Marian Garay NP Closed fracture of right hip, with routine healing, subsequent encounter (Primary Dx); 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 behavioral disturbance, psychotic disturbance, mood disturbance, or anxiety (HCC); Transient alteration of awareness 09/11/2024 10:15 AM CDT Office Visit [facility] [address] [place] [phone] Luiza Gibbs PA Status post hip hemiarthroplasty (Primary Dx); Closed fracture of right hip, initial encounter (HCC); Superficial incisional infection of surgical site 09/11/2024 10:14 AM CDT - 09/11/2024 11:59 PM CDT Hospital Encounter [facility] [address] [place] [id number] Closed fracture of right hip, initial encounter (HCC) Discharge Disposition: Discharge to home or self care 09/10/2024 NH/SNF Visit [facility] Post [address] [phone] Marian Garay NP Status post hip hemiarthroplasty (Primary Dx); 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 behavioral disturbance, psychotic disturbance, mood disturbance, or anxiety (HCC); Primary hypertension 09/03/2024 NH/SNF Visit [facility] Post [address] [phone] Deanne Perdue MD Primary hypertension (Primary Dx); Mixed hyperlipidemia; 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 behavioral disturbance, psychotic disturbance, mood disturbance, or anxiety (HCC); Closed fracture of right hip, with routine healing, subsequent encounter; Moderate protein-calorie malnutrition; Urinary retention; Syncope and collapse 09/02/2024 NH/SNF Visit [facility] Post [address] [phone] Marian Garay NP Closed fracture of right hip, with routine healing, subsequent encounter (Primary Dx); Urinary retention; 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 behavioral disturbance, psychotic disturbance, mood disturbance, or anxiety (HCC); Hypoxia; Primary hypertension 08/31/2024 8:00 PM CDT - 09/01/2024 11:02 AM CDT Emergency [address] [address] Kaelyn Ansari MD Fall, initial encounter (Primary Dx) Discharge Disposition: Discharge to home or self care 08/29/2024 NH/SNF Visit [address] [phone] Deanne Perdue MD Primary hypertension (Primary Dx); Mixed hyperlipidemia; 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 behavioral disturbance, psychotic disturbance, mood disturbance, or anxiety (HCC); Closed fracture of right hip, initial encounter (HCC); Moderate protein-calorie malnutrition; Urinary retention; Hypoxia 08/29/2024 Telephone [facility] [address] [place] [phone] Marian Garay NP After Hours 08/28/2024 NH/SNF Visit [address] [phone] Marian Garay NP Closed fracture of right hip, with routine healing, subsequent encounter (Primary Dx); Hypoxia; 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 behavioral disturbance, psychotic disturbance, mood disturbance, or anxiety (HCC); Urinary retention; Primary hypertension; Syncope and collapse; Mixed hyperlipidemia 08/25/2024 10:30 AM CDT - 08/25/2024 12:50 PM CDT Surgery [address] [address] Rick Hernandez DO RIGHT HIP HEMIARTHROPLASTY 08/25/2024 10:15 AM CDT Anesthesia Event [address] [address] Ramsse Hernandez MD 08/24/2024 6:56 PM POWERHOUSE ELECTRICIAN - 08/28/2024 12:30 PM CDT Hospital Encounter [address] [address] Gino Amanda MD Potluri, Sobhana Krishna, MD Closed fracture of right hip, initial encounter (HCC) (Primary Dx) Discharge Disposition: Discharge to home or self care from Last 3 Months Medical History Medical History Date Comments HTN (hypertension) Social History Tobacco Use Types Packs/Day Years Used Date Smoking Tobacco: Never Tobacco Cessation:Counseling Given: Not Answered [facility] Utilities Answer Date Recorded In the past 12 months has The Filter, gas, oil, or water [facility] [employer] threatened to shut off services in your home? Patient unable to answer 08/26/2024 Social Connection and Isolation Panel [NHANES] A nswer Date Recorded In a typical week, how many times do you talk on the phone with family, friends, or neighbors? Patient unable to answer 08/26/2024 How often do you get togethe r with friends or relatives? Patient unable to answer 08/26/2024 How often do you attend chur ch or jain services? Patient unable to answer 08/26/2024 Do you belong to any clubs o r organizations such as sikh groups, unions, fraternal or athletic groups, or school groups? Patient unable to answer 08/26/2024 How often do you attend meet ings of the clubs or organizations you belong to? Patient unable to answer 08/26/2024 Are you , , di vorced, , never , or living with a partner? Patient unable to answer 08/26/2024 Overall Financial Resource Strain (CARDIA) Answe r Date Recorded How hard is it for you to pa y for the very basics like food, housing, medical care, and heating? Patient unable to answer 08/26/2024 Hunger Vital Sign Answer Date Recorded Within the past 12 months, y ou worried that your food would run out before you got the money to buy more. Patient unable to answer 08/26/2024 Within the past 12 months, t he food you bought just didn't last and you didn't have money to get more. Patient unable to answer 08/26/2024 PRAPARE - Transportation Answer Date Re corded In the past 12 months, has l ack of transportation kept you from medical appointments or from getting medications? Patient unable to answer 08/26/2024 In the past 12 months, has l ack of transportation kept you from meetings, work, or from getting things needed for daily living? Patient unable to answer 08/26/2024 Housing Stability Vital Sign Answer Maximilian e Recorded In the last 12 months, was t here a time when you were not able to pay the mortgage or rent on time? Patient unable to answer 08/26/2024 In the past 12 months, how m any times have you moved where you were living? 0 08/26/2024 At any time in the past 12 m [facility], were you homeless or living in a snf (including now)? Patient unable to answer 08/26/2024 Personal Safety Answer Date Recorded Have you ever been in or are you currently in a harmful physical or emotional relationship or is someone making you feel afraid or unsafe? 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[employer] Gender Identity Not on file Sexual Orientation Not on file Obstetrics History Last Filed Vital Signs Vital Sign Reading Time Taken Comments Blood Pressure 131/65 09/01/2024 10:30 AM CDT Pulse 52 09/01/2024 10:30 AM CDT Temperature 36.6 C (97.8 F) 08/31/2024 8:04 PM CDT Respiratory Rate 17 09/01/2024 10:30 AM CDT Oxygen Saturation 100% 09/01/2024 10:30 AM CDT Inhaled Oxygen Concentration - - Weight 69.9 kg (154 lb) 09/11/2024 10:48 AM CDT Height 167.6 cm (5' 6) 09/11/2024 10:48 AM CDT Body Mass Index 24.86 09/11/2024 10:48 AM CDT Plan of Treatment Health Maintenance Due Date Last Done Comments Depression Screening 1940 Osteoporosis Screening-Bone Density Scan 1940 DTaP/Tdap/Td Vaccine (1 - Tdap) 09/13/1950 Hepatitis B Screening 09/13/1957 Zoster Vaccine (1 of 2) 09/13/1989 Well Visit 65+ 09/13/2004 Influenza Vaccine (Season Ended) 2025 03/27/2023, 03/28/2022, 04/06/2021, Additional history exists Fall Risk Assessment 08/28/2025 08/28/2024 Pneumococcal vaccine 65+ Completed 04/06/2021, 08/2016 Medical Devices Implanted Type Area 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 Launch And Recovery Technician Device Identifier Shelf Expiration Date Model / Serial / Lot [employer] Simplex P Radiopaque Full Dose Cement Bone Sterile 6191-1-010 - [id number] Implanted:Qty: 2 on 08/25/2024 by Rick Hernandez DO at [facility] Right: Hip [employer] 02/16/2027 6191-1-010 / / [id number] [employer] Restrictor Hip Cement Kit Bone Preparation Bioprep [id number] - [id number] Implanted:Qty: 1 on 08/25/2024 by Rick Hernandez DO at [facility] Right: Hip [employer] 05/19/2029 [id number] / / [id number] [employer] Maverick 114mm Cemented Hip 4 06/01 Standard Offset Taper Stem [id number] - [id number] Implanted:Qty: 1 on 08/25/2024 by Rick Hernandez DO at [facility] Right: Hip [employer] [id number] 06/18/2029 [id number] / / [employer] Cementralizer 9.25mm Cemented Hip Femur Centralizer Stem Pmma Latex Free [id number] - [id number] Implanted:Qty: 1 on 08/25/2024 by Rick Hernandez DO at [facility] Right: Hip [employer] [id number] 03/18/2028 [id number] / / [employer] Self-Centering 49mm 28mm Hip Femur Head Bipolar Sterile Brown [id number] - [id number] Implanted:Qty: 1 on 08/25/2024 by Rick Hernandez DO at [facility] Right: Hip [employer] [id number] 01/16/2029 [id number] / / [id number] [employer] Articul/Josué 28mm Hip +5mm 12/14 Taper Head Femoral Cocr Sterile Latex Free 1365-12-000 - [id number] Implanted:Qty: 1 on 08/25/2024 by Rick Hernandez DO at [facility] Right: Hip [employer] [id number] 06/18/2029 1365-12-000 / / [id number] Procedures Procedure Name Priority Date/Time Associated Diagnosis Comments XR HIP RIGHT W PELVIS 2 OR 3 VIEWS Schedule Routine, Read Routine (OP Routine) 09/11/2024 10:20 AM CDT Closed fracture of right hip, initial encounter (HCC) CT CERVICAL SPINE WO CONTRAST ED 08/31/2024 8:[address] HEAD WO CONTRAST ED 08/31/2024 8 :52 PM CDT XR HIP RIGHT W PELVIS 2 OR 3 VIEWS ED 08/31/2024 8:40 PM CDT XR CHEST 1 VIEW ED 08/31/2024 8:40 PM CDT HEMOGLOBIN AND HEMATOCRIT STAT 08/28/2024 8:29 AM CDT EGFR Routine 08/28/2024 5:24 AM CDT BASIC METABOLIC PANEL Routine 08/28/2024 5:24 AM CDT EGFR STAT 08/27/2024 3:45 PM CDT DIFFERENTIAL AUTO STAT 08/27/2024 3:4 5 PM CDT CBC WITH AUTO DIFFERENTIAL STAT 08/27/2024 3:45 PM CDT COMPREHENSIVE METABOLIC PANEL STAT 08/27/2024 3:45 PM CDT CBC WITHOUT DIFFERENTIAL Routine 08/26/2024 10:41 AM CDT EGFR Routine 08/26/2024 7:52 AM CDT BASIC METABOLIC PANEL Routine 08/26/2024 7:52 AM CDT DIFFERENTIAL AUTO STAT 08/25/2024 5:1 5 PM CDT CBC WITH AUTO DIFFERENTIAL STAT 08/25/2024 5:15 PM CDT XR HIP RIGHT W PELVIS 2 OR 3 VIEWS ED 08/25/2024 12:20 PM CDT FL AN PROCEDURE PLACEHOLDER Routine 08/25/2024 10:36 AM CDT FL AN ELECTIVE ENDOTRACHEAL AIRWAY Routine 08/25/2024 10:36 AM CDT PROSTHESIS HIP - BIPOLAR 08/25/2024 10:14 AM CDT URINALYSIS AND REFLEX TO MICROSCOPIC AND CULTURE STAT 08/25/2024 6:[address] PELVIS WO CONTRAST ED Urgent/IP Urgent 08/24/2024 9:[address] [address] CERVICAL SPINE WO CONTRAST ED 08/24/2024 8:[address] [address] HEAD WO CONTRAST ED 08/24/2024 8 :18 PM POWERHOUSE ELECTRICIAN DIFFERENTIAL AUTO STAT 08/24/2024 7:5 3 PM POWERHOUSE ELECTRICIAN CBC WITH AUTO DIFFERENTIAL STAT 08/24/2024 7:53 PM POWERHOUSE ELECTRICIAN XR HIP RIGHT 2 OR 3 VIEWS ED 08/24/2024 7:52 PM POWERHOUSE ELECTRICIAN EGFR STAT 08/24/2024 7:24 PM POWERHOUSE ELECTRICIAN COMPREHENSIVE METABOLIC PANEL STAT 08/24/2024 7:24 PM POWERHOUSE ELECTRICIAN from Last 3 Months Results * XR Hip Right W Pelvis Min 2 To 3 Views (09/11/2024 10:20 AM CDT) Anatomical Region Laterality Modality Lower Extremities, Hip, Pelvis Right C omputed Radiography 09/18/2024 10:1 3 AM CDT Narrative 09/18/2024 10:15 AM CDT EXAM DESCRIPTION: XR HIP RIGHT 2 OR 3 VIEWS W PELVIS REASON FOR STUDY: PAIN Lateral rt hip pain, F/U, surgery on 08/25/2024 TECHNIQUE: Frontal view of the pelvis and a frog-leg lateral view of the right hip were obtained. COMPARISON: Right hip radiographs dated 08/31/2024, 08/25/2024 and 08/24/2024. Pelvic CT dated 08/24/2024. FINDINGS: The right hip arthroplasty as seen on the previous right hip radiographs dated 08/31/2024. There are lateral surgical skin devante. Moderate amount of stool projects over the imaged abdomen and pelvis. Portions of the sacrum and coccyx are obscured by overlapping bowel debris. Degenerative changes about the pubic symphysis. There are pelvic phleboliths. IMPRESSION: Right hip arthroplasty as seen on the previous right hip radiographs dated 08/31/2024. THIS IS AN ELECTRONICALLY VERIFIED FINAL REPORT 09/18/2024 10:15 AM - Electronically signed by Lavon GALLAGHER T: Report ID: [id number] Reading Location: [id number] Procedure Note Lavon Osei, DO - 09/18/2024 EXAM DESCRIPTION: XR HIP RIGHT 2 OR 3 VIEWS W PELVIS REASON FOR STUDY: PAIN Lateral rt hip pain, F/U, surgery on 08/25/2024 TECHNIQUE: Frontal view of the pelvis and a frog-leg lateral view of theright hip were obtained. COMPARISON: Right hip radiographs dated 08/31/2024, 08/25/2024 and08/24/2024. Pelvic CT dated 08/24/2024. FINDINGS: The right hip arthroplasty as seen on the previous right hip radiographs dated 08/31/2024. There are lateral surgical skin devante. Moderate amount of stool projects over the imaged abdomen and pelvis.Portions of the sacrum and coccyx are obscured by overlapping bowel debris. Degenerative changes about the pubic symphysis. There are pelvicphleboliths. IMPRESSION: Right hip arthroplasty as seen on the previous right hip radiographs dated 08/31/2024. THIS IS AN ELECTRONICALLY VERIFIED FINAL REPORT 09/18/2024 10:15 AM - Electronically signed by Lavon Osei D.O. AP T: Report ID: [id number] Reading Location: [place] [id number] [facility] IMG XR PROCEDURES Final Re sult * CT Cervical Spine WO Contrast (08/31/2024 8:52 PM CDT) Anatomical Region Laterality Modality Spine N/A Computed Tomogra phy 08/31/2024 9:02 PM CDT Narrative 08/31/2024 9:12 PM CDT EXAM DESCRIPTION: CT HEAD WO CONTRAST; CT CERVICAL SPINE WO CONTRAST REASON FOR STUDY: Head trauma, minor (Age >= 65y) Portions of the record may have been created with voice recognition software. Occasional wrong-word or 'ufebh-y-uddw' substitutions may have occurred due to the inherent limitations of voice recognition software. Read the chart carefully and recognize, using context, where substitutions have occurred. H: Paty Cristina is a 83 y.o. female with h/o dementia, right hip hemiarthroplasty on 08/25 (today is POD #6), on Eliquis for another week for DVT prophylaxis postop, presents for likely unwitnessed fall. She has found on the ground. So unknown if she hit her head or how she fell. She has dementia and is unable to provide any additional history. She does endorse some right hip pain. Mental status is reportedly at baseline, Ax1 ; Neck trauma (Age >= 65y) Portions of the record may have been created with voice recognition software. Occasional wrong-word or 'wfxsb-j-yddy' substitutions may have occurred due to the inherent limitations of voice recognition software. Read the chart carefully and recognize, using context, where substitutions have occurred. H: Paty Cristina is a 83 y.o. female with h/o dementia, right hip hemiarthroplasty on 08/25 (today is POD #6), on Eliquis for another week for DVT prophylaxis postop, presents for likely unwitnessed fall. She has found on the ground. So unknown if she hit her head or how she fell. She has dementia and is unable to provide any additional history. She does endorse some right hip pain. Mental status is reportedly at baseline, Ax1 TECHNIQUE: CT of the head and cervical spine without intravenous contrast according to standard technique. Images stored on PACS. Automated exposure control was used as a dose optimization technique for this examination. COMPARISON: Head CT and cervical spine CT dated 08/24/2024 Head: No acute intracranial hemorrhage. No evidence of a large vascular territory acute infarction or CT evidence of vasogenic edema. No midline shift or mass effect. The ventricles and subarachnoid spaces are prominent indicating age-appropriate parenchymal volume loss. White matter attenuation appears within normal limits. There are atherosclerotic calcifications of the carotid siphons. The calvarium is normal without acute fracture. Status post bilateral lens replacement. Otherwise the orbits are unremarkable. The paranasal sinuses are well aerated. The mastoid air cells are well aerated. Cervical spine: Alignment: Mild reversal of the lordosis and degenerative listhesis. Mild dextrocurvature. Vertebral bodies: Normal in height without evidence of compression fracture. Intervertebral discs: Multilevel severe degenerative disc disease evidenced Facet and uncovertebral joints: Multilevel severe degenerative uncovertebral and facet arthropathy. Spinal canal: No significant osseous canal stenosis. Neural foramen: Severe multilevel neural foraminal stenosis most pronounced at C4-C5 and C5-C6 on the left. Soft tissues: No significant prevertebral edema. New partially visualized small ground-glass opacities in the left upper lobe most likely represent a infectious or inflammatory process. IMPRESSION: No acute intracranial process. No acute cervical spine fracture. New partially visualized small ground-glass opacities in the left upper lobe most likely represent an infectious or inflammatory process. THIS IS AN ELECTRONICALLY VERIFIED FINAL REPORT 08/31/2024 9:12 PM - Electronically signed by Hudson Turner M.D. MM T: Report ID: [id number] Reading Location: [id number] Procedure Note Hudson Turner MD - 08/31/2024 EXAM DESCRIPTION: CT HEAD WO CONTRAST; CT CERVICAL SPINE WO CONTRAST REASON FOR STUDY: Head trauma, minor (Age >= 65y) Portions of the record may have been created with voice recognitionsoftware. Occasional wrong-word or 'htbut-c-refj' substitutions may have occurreddue to the inherent limitations of voice recognition software. Read the chart carefully and recognize, using context, where substitutions haveoccurred. H: Paty Cristina is a 83 y.o. female with h/o dementia, right hip hemiarthroplasty on 08/25 (today is POD #6), on Eliquis for another week forDVT prophylaxis postop, presents for likely unwitnessed fall. She has foundon the ground. So unknown if she hit her head or how she fell. She has dementia and is unable to provide any additional history. She doesendorse some right hip pain. Mental status is reportedly at baseline, Ax1 ; Neck trauma (Age >= 65y) Portions of the record may have been created with voice recognitionsoftware. Occasional wrong-word or 'wytom-z-retb' substitutions may have occurreddue to the inherent limitations of voice recognition software. Read the chart carefully and recognize, using context, where substitutions haveoccurred. H: Ptay Cristina is a 83 y.o. female with h/o dementia, right hip hemiarthroplasty on 08/25 (today is POD #6), on Eliquis for another week forDVT prophylaxis postop, presents for likely unwitnessed fall. She has foundon the ground. So unknown if she hit her head or how she fell. She has dementia and is unable to provide any additional history. She doesendorse some right hip pain. Mental status is reportedly at baseline, Ax1 TECHNIQUE: CT of the head and cervical spine without intravenous contrast according to standard technique. Images stored on PACS. Automatedexposure control was used as a dose optimization technique for this examination. COMPARISON: Head CT and cervical spine CT dated 08/24/2024 Head: No acute intracranial hemorrhage. No evidence of a large vascular territory acute infarction or CT evidence of vasogenic edema. No midlineshift or mass effect. The ventricles and subarachnoid spaces are prominent indicating age-appropriate parenchymal volume loss. White matter attenuationappears within normal limits. There are atherosclerotic calcifications of the carotid siphons. The calvarium is normal without acute fracture. Status post bilaterallens replacement. Otherwise the orbits are unremarkable. The paranasalsinuses are well aerated. The mastoid air cells are well aerated. Cervical spine: Alignment: Mild reversal of the lordosis and degenerative listhesis. Mild dextrocurvature. Vertebral bodies: Normal in height without evidence of compressionfracture. Intervertebral discs: Multilevel severe degenerative disc diseaseevidenced Facet and uncovertebral joints: Multilevel severe degenerativeuncovertebral and facet arthropathy. Spinal canal: No significant osseous canal stenosis. Neural foramen: Severe multilevel neural foraminal stenosis mostpronounced at C4-C5 and C5-C6 on the left. Soft tissues: No significant prevertebral edema. New partially visualized small ground-glass opacities in the left upper lobe most likely representa infectious or inflammatory process. IMPRESSION: No acute intracranial process. No acute cervical spine fracture. New partially visualized small ground-glass opacities in the left upperlobe most likely represent an infectious or inflammatory process. THIS IS AN ELECTRONICALLY VERIFIED FINAL REPORT 08/31/2024 9:12 PM - Electronically signed by Hudson Turner M.D. MM T: Report ID: [id number] Reading Location: [id number] Kaelyn Ansari MD IMG CT PROCEDURES Final Result * CT Head WO Contrast (08/31/2024 8:52 PM CDT) Anatomical Region Laterality Modality Head and Neck N/A Computed Tomogra phy 08/31/2024 9:02 PM CDT Narrative 08/31/2024 9:12 PM CDT EXAM DESCRIPTION: CT HEAD WO CONTRAST; CT CERVICAL SPINE WO CONTRAST REASON FOR STUDY: Head trauma, minor (Age >= 65y) Portions of the record may have been created with voice recognition software. Occasional wrong-word or 'vomsc-d-fjvq' substitutions may have occurred due to the inherent limitations of voice recognition software. Read the chart carefully and recognize, using context, where substitutions have occurred. H: Paty Cristina is a 83 y.o. female with h/o dementia, right hip hemiarthroplasty on 3 (today is POD #6), on Eliquis for another week for DVT prophylaxis postop, presents for likely unwitnessed fall. She has found on the ground. So unknown if she hit her head or how she fell. She has dementia and is unable to provide any additional history. She does endorse some right hip pain. Mental status is reportedly at baseline, Ax1 ; Neck trauma (Age >= 65y) Portions of the record may have been created with voice recognition software. Occasional wrong-word or 'facdq-f-xoxd' substitutions may have occurred due to the inherent limitations of voice recognition software. Read the chart carefully and recognize, using context, where substitutions have occurred. H: Paty Cristina is a 83 y.o. female with h/o dementia, right hip hemiarthroplasty on 08/25 (today is POD #6), on Eliquis for another week for DVT prophylaxis postop, presents for likely unwitnessed fall. She has found on the ground. So unknown if she hit her head or how she fell. She has dementia and is unable to provide any additional history. She does endorse some right hip pain. Mental status is reportedly at baseline, Ax1 TECHNIQUE: CT of the head and cervical spine without intravenous contrast according to standard technique. Images stored on PACS. Automated exposure control was used as a dose optimization technique for this examination. COMPARISON: Head CT and cervical spine CT dated 08/24/2024 Head: No acute intracranial hemorrhage. No evidence of a large vascular territory acute infarction or CT evidence of vasogenic edema. No midline shift or mass effect. The ventricles and subarachnoid spaces are prominent indicating age-appropriate parenchymal volume loss. White matter attenuation appears within normal limits. There are atherosclerotic calcifications of the carotid siphons. The calvarium is normal without acute fracture. Status post bilateral lens replacement. Otherwise the orbits are unremarkable. The paranasal sinuses are well aerated. The mastoid air cells are well aerated. Cervical spine: Alignment: Mild reversal of the lordosis and degenerative listhesis. Mild dextrocurvature. Vertebral bodies: Normal in height without evidence of compression fracture. Intervertebral discs: Multilevel severe degenerative disc disease evidenced Facet and uncovertebral joints: Multilevel severe degenerative uncovertebral and facet arthropathy. Spinal canal: No significant osseous canal stenosis. Neural foramen: Severe multilevel neural foraminal stenosis most pronounced at C4-C5 and C5-C6 on the left. Soft tissues: No significant prevertebral edema. New partially visualized small ground-glass opacities in the left upper lobe most likely represent a infectious or inflammatory process. IMPRESSION: No acute intracranial process. No acute cervical spine fracture. New partially visualized small ground-glass opacities in the left upper lobe most likely represent an infectious or inflammatory process. THIS IS AN ELECTRONICALLY VERIFIED FINAL REPORT 08/31/2024 9:12 PM - Electronically signed by Hudson Turner M.D. MM T: Report ID: [id number] Reading Location: [id number] Procedure Note Hudson Turner MD - 08/31/2024 EXAM DESCRIPTION: CT HEAD WO CONTRAST; CT CERVICAL SPINE WO CONTRAST REASON FOR STUDY: Head trauma, minor (Age >= 65y) Portions of the record may have been created with voice recognitionsoftware. Occasional wrong-word or 'njqlu-w-lqmp' substitutions may have occurreddue to the inherent limitations of voice recognition software. Read the chart carefully and recognize, using context, where substitutions haveoccurred. H: Paty Cristina is a 83 y.o. female with h/o dementia, right hip hemiarthroplasty on 08/25 (today is POD #6), on Eliquis for another week forDVT prophylaxis postop, presents for likely unwitnessed fall. She has foundon the ground. So unknown if she hit her head or how she fell. She has dementia and is unable to provide any additional history. She doesendorse some right hip pain. Mental status is reportedly at baseline, Ax1 ; Neck trauma (Age >= 65y) Portions of the record may have been created with voice recognitionsoftware. Occasional wrong-word or 'onpbm-s-gujz' substitutions may have occurreddue to the inherent limitations of voice recognition software. Read the chart carefully and recognize, using context, where substitutions haveoccurred. H: Paty Cristina is a 83 y.o. female with h/o dementia, right hip hemiarthroplasty on 08/25 (today is POD #6), on Eliquis for another week forDVT prophylaxis postop, presents for likely unwitnessed fall. She has foundon the ground. So unknown if she hit her head or how she fell. She has dementia and is unable to provide any additional history. She doesendorse some right hip pain. Mental status is reportedly at baseline, Ax1 TECHNIQUE: CT of the head and cervical spine without intravenous contrast according to standard technique. Images stored on PACS. Automatedexposure control was used as a dose optimization technique for this examination. COMPARISON: Head CT and cervical spine CT dated 08/24/2024 Head: No acute intracranial hemorrhage. No evidence of a large vascular territory acute infarction or CT evidence of vasogenic edema. No midlineshift or mass effect. The ventricles and subarachnoid spaces are prominent indicating age-appropriate parenchymal volume loss. White matter attenuationappears within normal limits. There are atherosclerotic calcifications of the carotid siphons. The calvarium is normal without acute fracture. Status post bilaterallens replacement. Otherwise the orbits are unremarkable. The paranasalsinuses are well aerated. The mastoid air cells are well aerated. Cervical spine: Alignment: Mild reversal of the lordosis and degenerative listhesis. Mild dextrocurvature. Vertebral bodies: Normal in height without evidence of compressionfracture. Intervertebral discs: Multilevel severe degenerative disc diseaseevidenced Facet and uncovertebral joints: Multilevel severe degenerativeuncovertebral and facet arthropathy. Spinal canal: No significant osseous canal stenosis. Neural foramen: Severe multilevel neural foraminal stenosis mostpronounced at C4-C5 and C5-C6 on the left. Soft tissues: No significant prevertebral edema. New partially visualized small ground-glass opacities in the left upper lobe most likely representa infectious or inflammatory process. IMPRESSION: No acute intracranial process. No acute cervical spine fracture. New partially visualized small ground-glass opacities in the left upperlobe most likely represent an infectious or inflammatory process. THIS IS AN ELECTRONICALLY VERIFIED FINAL REPORT 08/31/2024 9:12 PM - Electronically signed by Hudson Turner M.D., MM T: Report ID: [id number] Reading Location: [id number] Kaelyn Ansari MD IMG CT PROCEDURES Final Result * XR Hip Right 2 or 3 Views W Pelvis (08/31/2024 8:40 PM CDT) Anatomical Region Laterality Modality Lower Extremities, Hip, Pelvis Right C omputed Radiography 08/31/2024 8:49 PM CDT Narrative 08/31/2024 8:50 PM CDT EXAM DESCRIPTION: XR HIP RIGHT 2 OR 3 VIEWS W PELVIS REASON FOR STUDY: Found on ground, likely unwitnessed fall As per EMS REPORT, patient was found lying on the floor and had an unwitnessed fall. Patient is confused and does not remember anything about fall. 1 week post op on right hip TECHNIQUE: Frontal and lateral views of the right hip . COMPARISON: 08/25/2024 FINDINGS: BONES/JOINTS: Right hip arthroplasty. No periprosthetic fracture or other complication is seen. SOFT TISSUES: Superficial postoperative edema. IMPRESSION: No acute abnormality identified. THIS IS AN ELECTRONICALLY VERIFIED FINAL REPORT 08/31/2024 8:50 PM - Electronically signed by Sixto MELENDREZ T: Report ID: [id number] Reading Location: [id number] Procedure Note Sixto Hopkins MD - 08/31/2024 EXAM DESCRIPTION: XR HIP RIGHT 2 OR 3 VIEWS W PELVIS REASON FOR STUDY: Found on ground, likely unwitnessed fall As per EMS REPORT, patient was found lying on the floor and had anunwitnessed fall. Patient is confused and does not remember anything about fall. 1week post op on right hip TECHNIQUE: Frontal and lateral views of the right hip . COMPARISON: 08/25/2024 FINDINGS: BONES/JOINTS: Right hip arthroplasty. No periprostheticfracture or other complication is seen. SOFT TISSUES: Superficial postoperative edema. IMPRESSION: No acute abnormality identified. THIS IS AN ELECTRONICALLY VERIFIED FINAL REPORT 08/31/2024 8:50 PM - Electronically signed by Sixto Hopkins M.D. AR T: Report ID: [id number] Reading Location: [id number] us Kaelyn Ansari MD IMG XR PROCEDURES Final Result * XR Chest 1 Vw Portable (08/31/2024 8:40 PM CDT) Anatomical Region Laterality Modality Body, Chest N/A Computed Radiogr aphy 08/31/2024 8:48 PM CDT Narrative 08/31/2024 8:49 PM CDT EXAM DESCRIPTION: XR CHEST 1 VIEW REASON FOR STUDY: Found on the ground, likely fall As per EMS REPORT, patient was found lying on the floor and had an unwitnessed fall. Patient is confused and does not remember anything about fall. 1 week post op on right hip TECHNIQUE: Portable upright AP view of the chest. COMPARISON: None FINDINGS: LUNGS AND PLEURA: No focal opacity, large effusion, or pneumothorax identified. HEART/MEDIASTINUM: Trachea midline. Cardiac silhouette normal in size. Mediastinal contours appear normal. BONES: Mild shoulder arthritis. CHEST WALL: Unremarkable. UPPER ABDOMEN: Unremarkable. IMPRESSION: No acute abnormality identified. THIS IS AN ELECTRONICALLY VERIFIED FINAL REPORT 08/31/2024 8:49 PM - Electronically signed by Sixto Hopkins M.D. AR T: Report ID: [id number] Reading Location: [id number] Procedure Note Sixto Hopkins MD - 08/31/2024 EXAM DESCRIPTION: XR CHEST 1 VIEW REASON FOR STUDY: Found on the ground, likely fall As per EMS REPORT, patient was found lying on the floor and had anunwitnessed fall. Patient is confused and does not remember anything about fall. 1week post op on right hip TECHNIQUE: Portable upright AP view of the chest. COMPARISON: None FINDINGS: LUNGS AND PLEURA: No focal opacity, large effusion, orpneumothorax identified. HEART/MEDIASTINUM: Trachea midline. Cardiac silhouette normal in size. Mediastinal contours appear normal. BONES: Mild shoulder arthritis. CHEST WALL: Unremarkable. UPPER ABDOMEN: Unremarkable. IMPRESSION: No acute abnormality identified. THIS IS AN ELECTRONICALLY VERIFIED FINAL REPORT 08/31/2024 8:49 PM - Electronically signed by Sixto Hopkins M.D. AR T: Report ID: [id number] Reading Location: [place] [id number] us Kaelyn Ansari MD IMG XR PROCEDURES Final Result * (ABNORMAL) Hemoglobin and hematocrit (08/28/2024 8:29 AM CDT) Hgb 8.2(L) 11.9 - 15.5 g/dL Hct 25.2(L) 35.6 - 45.5 % [facility] Blood 08/28/2024 8:29 AM CDT 08/28/2024 8:51 AM CDT us Selena Allan MD LAB BLOOD ORDERABLES Final Result [facility] [address] [facility] Department [place] [address] * (ABNORMAL) eGFR (08/28/2024 5:24 AM CDT) eGFR 48(L) >=60 mL/min/1. 73 m2 Comment: Interpretive Data Reference Interval Normal >/= 90 mL/min/1.73m2 Mildly decreased* 60 - 89 mL/min/1.73m2 Mildly to moderately decreased 45 - 59 mL/min/1.73m2 Moderately to severely decreased 30 - 44 mL/min/1.73m2 Severely decreased 15 - 29 mL/min/1.73m2 Kidney Failure < 15 mL/min/1.73m2 *Relative to young adult level Estimated glomerular filtration rate is determined by the 2020 CKD-EPI equation recommended by the National Kidney Foundation (A Unifying Approach to GFR Estimation: Recommendations of the NKF-ASK Task Force on Reassessing the Inclusion of Race in Diagnosing Kidney Disease, JASN 2020). The CKD-EPI equation should not be used for patients with unstable renal function and has not been validated in children and those over 70. Current interpretive data was last reviewed 2021. Blood 08/28/2024 5:24 AM CDT 08/28/2024 5:57 AM CDT Selena Allan MD LAB BLOOD ORDERABLES Final Result [facility] [address] Department [place] [address] * (ABNORMAL) Basic metabolic panel (08/28/2024 5:24 AM CDT) Sodium 139 135 - 145 mmol/L Potassium, pl 3.9 3.3 - 4.9 mmol/L [facility] Chloride 106 97 - 110 mmol/L [facility] CO2 27 22 - 32 mmol/L [facility] Anion gap 6 2 - 15 mmol/L [facility] BUN 33(H) 6 - 25 mg/dL [facility] Creatinine 1.13(H) 0.60 - 1.10 mg/dL [facility] Glucose 104 70 - 199 mg/dL [facility] Comment: Interpretive Data Fasting glucose >/= 126 mg/dl is diagnostic for diabetes. Fasting is defined as no caloric intake for at least 8 hours. Fasting glucose between 100 mg/dl to 125 mg/dl is diagnostic of prediabetes. In a patient with classic symptoms of hyperglycemia or hyperglycemic crisis, a random glucose >/= 200 mg/dl is diagnostic for diabetes. In the absence of unequivocal hyperglycemia, results should be confirmed by repeat testing. The classification and Diagnosis of Diabetes Diabetes Care 202; 46: S19-S40. Current interpretive data was last revised 2022. Calcium 8.4(L) 8.5 - 10.3 mg/dL [facility] Blood 08/28/2024 5:24 AM CDT 08/28/2024 5:57 AM CDT Selena Allan MD LAB BLOOD ORDERABLES Final Result Performing Organization Address [facility] Co de Phone Number [facility] [address] [place] [address] * (ABNORMAL) eGFR (08/27/2024 3:45 PM CDT) Pathologist [facility] eGFR 22(L) >=60 mL/min/1. 73 m2 Comment: Interpretive Data Reference Interval Normal >/= 90 mL/min/1.73m2 Mildly decreased* 60 - 89 mL/min/1.73m2 Mildly to moderately decreased 45 - 59 mL/min/1.73m2 Moderately to severely decreased 30 - 44 mL/min/1.73m2 Severely decreased 15 - 29 mL/min/1.73m2 Kidney Failure < 15 mL/min/1.73m2 *Relative to young adult level Estimated glomerular filtration rate is determined by the 2020 CKD-EPI equation recommended by the National Kidney Foundation (A Unifying Approach to GFR Estimation: Recommendations of the NKF-ASK Task Force on Reassessing the Inclusion of Race in Diagnosing Kidney Disease, JASN 2020). The CKD-EPI equation should not be used for patients with unstable renal function and has not been validated in children and those over 70. Current interpretive data was last reviewed 2021. Blood 08/27/2024 3:45 PM CDT 08/27/2024 3:58 PM CDT Selena Allan MD LAB BLOOD ORDERABLES Final Result Performing Organization Address City/[facility]/ZIP Co de Phone Number CR[facility] [address] Department [place] [address] * (ABNORMAL) Differential, auto (08/27/2024 3:45 PM CDT) [facility] Neutrophil abs 5.7 1.5 - 6.5 K/cumm Imm gran abs 0.0 0.0 - 0.1 K/cumm [facility] Lymphocyte abs 0.9 0.8 - 3.3 K/cumm [facility] Monocyte abs 1.0(H) 0.2 - 0.8 K/cumm [facility] Eosinophil abs 0.1 0.0 - 0.5 K/cumm [facility] Basophil abs 0.0 0.0 - 0.1 K/cumm [facility] Neutrophil pct 74.0 % [facility] Comment: Interpretive Data Percent cell count reference ranges are not reported, since discordance with absolute values may lead to misinterpretation of CBC data. Current Interpretive Data was last revised on 2017. Imm gran pct 0.5 % [facility] Comment: Interpretive Data Percent cell count reference ranges are not reported, since discordance with absolute values may lead to misinterpretation of CBC data. Current Interpretive Data was last revised on 2017. Lymphocyte pct 11.7 % [facility] Comment: Interpretive Data Percent cell count reference ranges are not reported, since discordance with absolute values may lead to misinterpretation of CBC data. Current Interpretive Data was last revised on 2017. Monocyte pct 12.4 % [facility] Comment: Interpretive Data Percent cell count reference ranges are not reported, since discordance with absolute values may lead to misinterpretation of CBC data. Current Interpretive Data was last revised on 2017. Eosinophil pct 1.3 % [facility] Comment: Interpretive Data Percent cell count reference ranges are not reported, since discordance with absolute values may lead to misinterpretation of CBC data. Current Interpretive Data was last revised on 2017. Basophil pct 0.1 % [facility] Comment: Interpretive Data Percent cell count reference ranges are not reported, since discordance with absolute values may lead to misinterpretation of CBC data. Current Interpretive Data was last revised on 2017. Blood 08/27/2024 3:45 PM CDT 08/27/2024 3:58 PM CDT us Selena Allan MD LAB BLOOD ORDERABLES Final Result [facility] [address] [facility] Department [place] [address] * (ABNORMAL) CBC with auto differential (08/27/2024 3:45 PM CDT) [facility] WBC 7.8 3.8 - 9.9 K/cumm Hgb 8.5(L) 11.9 - 15.5 g/dL [facility] Hct 27.3(L) 35.6 - 45.5 % [facility] Plt 123(L) 150 - 400 K/cumm [facility] MPV 12.7(H) 9.1 - 12.3 fL [facility] RBC 2.89(L) 3.90 - 5.20 M/cumm [facility] MCV 94.5 81.3 - 96.4 fL [facility] MCH 29.4 27.1 - 33.3 pg [facility] MCHC 31.1(L) 32.3 - 35.7 g/dL [facility] RDW CV 14.2 11.1 - 14.9 % [facility] RDW SD 48.7(H) 35.7 - 48.1 fL [facility] NRBC abs 0.00 0.00 - 0.01 K/cumm [facility] Blood 08/27/2024 3:45 PM CDT 08/27/2024 3:58 PM CDT us Selena Allan MD LAB BLOOD ORDERABLES Final Result [facility] [address] [facility] Department [place] [address] * (ABNORMAL) Comprehensive metabolic panel (08/27/2024 3:45 PM CDT) [facility] Sodium 136 135 - 145 mmol/L Potassium, pl 4.0 3.3 - 4.9 mmol/L [facility] Chloride 103 97 - 110 mmol/L [facility] CO2 21(L) 22 - 32 mmol/L [facility] Anion gap 12 2 - 15 mmol/L [facility] BUN 39(H) 6 - 25 mg/dL [facility] Creatinine 2.16(H) 0.60 - 1.10 mg/dL [facility] Glucose 120 70 - 199 mg/dL [facility] Comment: Interpretive Data Fasting glucose >/= 126 mg/dl is diagnostic for diabetes. Fasting is defined as no caloric intake for at least 8 hours. Fasting glucose between 100 mg/dl to 125 mg/dl is diagnostic of prediabetes. In a patient with classic symptoms of hyperglycemia or hyperglycemic crisis, a random glucose >/= 200 mg/dl is diagnostic for diabetes. In the absence of unequivocal hyperglycemia, results should be confirmed by repeat testing. The classification and Diagnosis of Diabetes Diabetes Care 2021; 46: S19-S40. Current interpretive data was last revised 2022. Calcium 8.1(L) 8.5 - 10.3 mg/dL [facility] Bilirubin, total 0.7 0.1 - 1.2 mg/dL [facility] Protein, pl 5.4(L) 6.5 - 8.5 g/dL [facility] Albumin 2.9(L) 3.5 - 5.0 g/dL [facility] Alk phos 54 40 - 130 Units/L [facility] ALT 11 7 - 45 Units/L [facility] AST 25 10 - 45 Units/L [facility] Blood 08/27/2024 3:45 PM CDT 08/27/2024 3:58 PM CDT us Selena Allan MD LAB BLOOD ORDERABLES Final Result [facility] [address] [facility] Department [place] [address] * (ABNORMAL) CBC without differential (08/26/2024 10:41 AM CDT) Pathologist [facility] WBC 8.1 3.8 - 9.9 K/cumm Hgb 9.1(L) 11.9 - 15.5 g/dL [facility] Hct 29.5(L) 35.6 - 45.5 % [facility] Plt 124(L) 150 - 400 K/cumm [facility] MPV 12.9(H) 9.1 - 12.3 fL [facility] RBC 3.07(L) 3.90 - 5.20 M/cumm [facility] MCV 96.1 81.3 - 96.4 fL [facility] MCH 29.6 27.1 - 33.3 pg [facility] MCHC 30.8(L) 32.3 - 35.7 g/dL [facility] RDW CV 14.0 11.1 - 14.9 % [facility] RDW SD 49.1(H) 35.7 - 48.1 fL [facility] NRBC abs 0.00 0.00 - 0.01 K/cumm [facility] Blood 08/26/2024 10:4 1 AM CDT 08/26/2024 11:20 AM CDT Selena Allan MD LAB BLOOD ORDERABLES Final Result Performing Organization Address City/[facility] Co de Phone Number JAYDON[address] [employer] [place] [address] * (ABNORMAL) eGFR (08/26/2024 7:52 AM CDT) eGFR 52(L) >=60 mL/min/1. 73 m2 Comment: Interpretive Data Reference Interval Normal >/= 90 mL/min/1.73m2 Mildly decreased* 60 - 89 mL/min/1.73m2 Mildly to moderately decreased 45 - 59 mL/min/1.73m2 Moderately to severely decreased 30 - 44 mL/min/1.73m2 Severely decreased 15 - 29 mL/min/1.73m2 Kidney Failure < 15 mL/min/1.73m2 *Relative to young adult level Estimated glomerular filtration rate is determined by the 2020 CKD-EPI equation recommended by the National Kidney Foundation (A Unifying Approach to GFR Estimation: Recommendations of the NKF-ASK Task Force on Reassessing the Inclusion of Race in Diagnosing Kidney Disease, JASN 2020). The CKD-EPI equation should not be used for patients with unstable renal function and has not been validated in children and those over 70. Current interpretive data was last reviewed 2021. Blood 08/26/2024 7:52 AM CDT 08/26/2024 7:59 AM CDT Selena Allan MD LAB BLOOD ORDERABLES Final Result Performing Organization Address City/[facility]/ZIP Co de Phone Number [address] Department [place] [address] * (ABNORMAL) Basic metabolic panel (08/26/2024 7:52 AM CDT) [facility] Sodium 137 135 - 145 mmol/L Potassium, pl 4.4 3.3 - 4.9 mmol/L [facility] Comment:Hemolyzed; Potassium value may be falsely elevated by as much as 1.0 mmol/L. Suggest redraw and reanalysis. Chloride 104 97 - 110 mmol/L [facility] CO2 22 22 - 32 mmol/L [facility] Anion gap 11 2 - 15 mmol/L [facility] BUN 22 6 - 25 mg/dL [facility] Creatinine 1.06 0.60 - 1.10 mg/dL [facility] Glucose 102 70 - 199 mg/dL [facility] Comment: Interpretive Data Fasting glucose >/= 126 mg/dl is diagnostic for diabetes. Fasting is defined as no caloric intake for at least 8 hours. Fasting glucose between 100 mg/dl to 125 mg/dl is diagnostic of prediabetes. In a patient with classic symptoms of hyperglycemia or hyperglycemic crisis, a random glucose >/= 200 mg/dl is diagnostic for diabetes. In the absence of unequivocal hyperglycemia, results should be confirmed by repeat testing. The classification and Diagnosis of Diabetes Diabetes Care 2021; 46: S19-S40. Current interpretive data was last revised 2022. Calcium 8.0(L) 8.5 - 10.3 mg/dL [facility] Blood 08/26/2024 7:52 AM CDT 08/26/2024 7:59 AM CDT us Selena Allan MD LAB BLOOD ORDERABLES Final Result [facility] [address] [facility] Department [place] [address] * (ABNORMAL) Differential, auto (08/25/2024 5:15 PM CDT) [facility] Neutrophil abs 13.3(H) 1.5 - 6.5 K/cumm Imm gran abs 0.1 0.0 - 0.1 K/cumm [facility] Lymphocyte abs 0.6(L) 0.8 - 3.3 K/cumm [facility] Monocyte abs 0.8 0.2 - 0.8 K/cumm [facility] Eosinophil abs 0.0 0.0 - 0.5 K/cumm [facility] Basophil abs 0.0 0.0 - 0.1 K/cumm [facility] Neutrophil pct 90.1 % [facility] Comment: Interpretive Data Percent cell count reference ranges are not reported, since discordance with absolute values may lead to misinterpretation of CBC data. Current Interpretive Data was last revised on 2017. Imm gran pct 0.3 % [facility] Comment: Interpretive Data Percent cell count reference ranges are not reported, since discordance with absolute values may lead to misinterpretation of CBC data. Current Interpretive Data was last revised on 2017. Lymphocyte pct 4.1 % [facility] Comment: Interpretive Data Percent cell count reference ranges are not reported, since discordance with absolute values may lead to misinterpretation of CBC data. Current Interpretive Data was last revised on 2017. Monocyte pct 5.3 % [facility] Comment: Interpretive Data Percent cell count reference ranges are not reported, since discordance with absolute values may lead to misinterpretation of CBC data. Current Interpretive Data was last revised on 2017. Eosinophil pct 0.1 % [facility] Comment: Interpretive Data Percent cell count reference ranges are not reported, since discordance with absolute values may lead to misinterpretation of CBC data. Current Interpretive Data was last revised on 2017. Basophil pct 0.1 % [facility] Comment: Interpretive Data Percent cell count reference ranges are not reported, since discordance with absolute values may lead to misinterpretation of CBC data. Current Interpretive Data was last revised on 2017. Blood 08/25/2024 5:15 PM CDT 08/25/2024 5:35 PM CDT us Selena Allan MD LAB BLOOD ORDERABLES Final Result [facility] [address] [facility] Department [place] [address] * (ABNORMAL) CBC with auto differential (08/25/2024 5:15 PM CDT) WBC 14.8(H) 3.8 - 9.9 K/cumm Hgb 10.7(L) 11.9 - 15.5 g/dL [facility] Hct 34.3(L) 35.6 - 45.5 % [facility] Plt 172 150 - 400 K/cumm [facility] MPV 12.8(H) 9.1 - 12.3 fL [facility] RBC 3.68(L) 3.90 - 5.20 M/cumm [facility] MCV 93.2 81.3 - 96.4 fL [facility] MCH 29.1 27.1 - 33.3 pg [facility] MCHC 31.2(L) 32.3 - 35.7 g/dL [facility] RDW CV 13.7 11.1 - 14.9 % [facility] RDW SD 46.9 35.7 - 48.1 fL [facility] NRBC abs 0.00 0.00 - 0.01 K/cumm [facility] Blood 08/25/2024 5:15 PM CDT 08/25/2024 5:35 PM CDT us Selena Allan MD LAB BLOOD ORDERABLES Final Result [facility] [address] Department [place] [address] * XR Hip Right 2 or 3 Views W Pelvis (08/25/2024 12:20 PM CDT) Anatomical Region Laterality Modality Lower Extremities, Hip, Pelvis Right C omputed Radiography 08/25/2024 12:5 2 PM CDT Narrative 08/25/2024 1:06 PM CDT EXAM DESCRIPTION: XR HIP RIGHT 2 OR 3 VIEWS W PELVIS REASON FOR STUDY: 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 COMPARISON: Radiographs of the right hip dated 08/24/2024. FINDINGS: BONES/JOINTS: Interval postsurgical changes of right hip hemiarthroplasty. The hardware is intact without evidence of immediate complication. No acute fracture or dislocation. [id number] osteoarthritic changes of the left hip joint and pubic symphysis. Degeneration of the bilateral sacroiliac joints. SOFT TISSUES: Unremarkable. OTHER: No significant finding. 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 THIS IS AN ELECTRONICALLY VERIFIED FINAL REPORT 08/25/2024 1:06 PM - Electronically signed by Shamar Harkins M.D. 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 COMPARISON: Radiographs of the right hip dated 08/24/2024. FINDINGS: BONES/JOINTS: Interval postsurgical changes of right hip hemiarthroplasty. The hardware is intact without evidence of immediate complication. No acute fracture or dislocation. [id number] osteoarthritic changes of the left hip joint and pubic symphysis. Degeneration of the bilateral sacroiliac joints. SOFT TISSUES: Unremarkable. OTHER: No significant finding. 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 THIS IS AN ELECTRONICALLY VERIFIED FINAL REPORT 08/25/2024 1:06 PM - Electronically signed by Shamar Harkins M.D. T: Report ID: [id number] Reading Location: [id number] Luiza JAMESON IMG XR PROCEDURES Final Re sult * FL AN ELECTIVE ENDOTRACHEAL AIRWAY, FL AN PROCEDURE PLACEHOLDER (08/25/2024 10:36 AM CDT) Narrative Ramses Hernandez MD - 08/25/2024 10:36 AM CDT Ramses Hernandez MD 08/25/2024 10:36 AM Airway Patient location: OR Date/time: 08/25/2024 10:36 AM Indications for airway management: anesthesia Difficult airway: no Staff: Placed by: Anesthesiologist: Ramses Hernandez MD Emergent airway documentation: Risks and benefits discussed: yes Consent obtained: yes Consent given by: patient Airway prep: Preoxygenated: yes Patient position: sniffing Mask difficulty assessment: 1 - vent by mask Sedation level during airway: GA Final airway details: Final airway type: endotracheal airway Tube type: ETT ETT size: 7.0 mm Cuffed: yes Technique used for successful ETT placement: direct laryngoscopy Blade type: Gil Blade size: 3 Cormack-Lehane (direct): grade I - full view of glottis Cuff inflated with: air ETT to lips: 21 cm Placement verified by: auscultation and CO2 detection Airway secured with: transpore tape Number of attempts: 1 Ramses Hernandez MD ANESTHESIA ORDERABLES Final Resu lt * (ABNORMAL) Urinalysis reflex to microscopic and culture Urine (08/25/2024 6:59 AM CDT) Color, ur Yellow Yellow Clarity, ur Clear Clear [facility] Specific gravity, ur 1.022 1.003 - 1.030 [facility] pH, urine 7.0 [facility] Comment: Interpretive Data U rine pH is affected by diet, medications, systemic acid-base disturbances, and renal tubular function. pH may affect urinary stone formation. For example, urine pH below 6.0 may help reduce the tendency for calcium phosphate stones and pH greater than 6.0 may reduce the tendency for uric acid stone formation. Source: [facility] Current Interpretive Data was last revised on 2017 Protein, ur ql Negative Negative [facility] Glucose, ur ql Negative Negative [facility] Ketones, ur Trace Negative [facility] Bilirubin, ur Negative Negative [facility] Blood, ur Negative Negative [facility] Urobilinogen, ur 2.0(A) <2.0 mg/dL [facility] Nitrite, ur Negative Negative [facility] Leukocyte esterase, ur Negative Negative [facility] UA reflex comment Reflex conditions for microscopic UA and culture not met. [facility]rine 08/25/2024 6:59 AM CDT 08/25/2024 7:20 AM CDT us Gino Amanda MD LAB MICROBIOLOGY - G ENERAL ORDERABLES Final Result [facility] [address] [facility] Department [place] [address] * CT Pelvis WO Contrast (08/24/2024 9:50 PM POWERHOUSE ELECTRICIAN) Anatomical Region Laterality Modality Body N/A Computed Tomogra phy 08/24/2024 10:3 2 PM POWERHOUSE ELECTRICIAN Narrative 08/24/2024 10:35 PM POWERHOUSE ELECTRICIAN EXAM DESCRIPTION: CT PELVIS WO CONTRAST REASON FOR STUDY: Hip trauma, fracture suspected, xray done Patient BIBEMS from [facility] with complaints of fall. EMS reports shortened and rotated right leg. Patient slipped and fell on water in the bathroom tonight. EMS reports patient is AAOx1 baseline. Patient stated when they turned in the bathroom, their foot hit some water and they couldn't stop themselves from falling. Patient endorses: Right hip pain. PMHx: Alzheimer's, HTN, osteoporosis. No signs of respiratory distress noted, AAOx3. Right leg rotation and shortened noted. Follow up to earlier R hip x-rays for fx TECHNIQUE: CT scan of the pelvis performed without intravenous and without oral contrast using helical scanning technique. Reconstructed coronal and sagittal MPR images reviewed. All images stored on PACS. Automated exposure control was used as a dose optimization technique for this examination. COMPARISON: None FINDINGS: MUSCULOSKELETAL: Moderately displaced/impacted right femoral neck fracture. Minimal involvement of the trochanters. Mild hip, moderate spine arthritis. PELVIC CONTENTS: Extensive noninflamed diverticulosis. Moderate rectal stool. BODY WALL: Unremarkable. IMPRESSION: Moderately displaced/impacted right femoral neck fracture, minimal involvement of the trochanters. THIS IS AN ELECTRONICALLY VERIFIED FINAL REPORT 08/24/2024 10:35 PM - Electronically signed by Sixto MELENDREZ T: Report ID: [id number] Reading Location: [place] [address] Procedure Note Sixto Hopkins MD - 08/24/2024 EXAM DESCRIPTION: CT PELVIS WO CONTRAST REASON FOR STUDY: Hip trauma, fracture suspected, xray done Patient [facility] from [facility] with complaints of fall. EMS reports shortened and rotated right leg. Patient slipped and fell on water in the bathroom tonight. EMS reports patient is AAOx1 baseline. Patientstated when they turned in the bathroom, their foot hit some water and theycouldn't stop themselves from falling. Patient endorses: Right hip pain. PMHx: Alzheimer's, HTN, osteoporosis. No signs of respiratory distress noted, AAOx3. Right leg rotation and shortened noted. Follow up toearlier R hip x-rays for fx TECHNIQUE: CT scan of the pelvis performed without intravenous and without oral contrast using helical scanning technique. Reconstructedcoronal and sagittal MPR images reviewed. All images stored on PACS. Automated exposure control was used as a dose optimization technique for this examination. COMPARISON: None FINDINGS: MUSCULOSKELETAL: Moderately displaced/impacted right femoral neckfracture. Minimal involvement of the trochanters. Mild hip, moderate spinearthritis. PELVIC CONTENTS: Extensive noninflamed diverticulosis. Moderate rectal stool. BODY WALL: Unremarkable. IMPRESSION: Moderately displaced/impacted right femoral neck fracture,minimal involvement of the trochanters. THIS IS AN ELECTRONICALLY VERIFIED FINAL REPORT 08/24/2024 10:35 PM - Electronically signed by Sixto Hopkins M.D. AR T: Report ID: [id number] Reading Location: [id number] Luiza JAMESON IMG CT PROCEDURES Final Re sult * CT Cervical Spine WO Contrast (08/24/2024 8:18 PM POWERHOUSE ELECTRICIAN) Anatomical Region Laterality Modality Spine N/A Computed Tomogra phy 08/24/2024 8:31 PM POWERHOUSE ELECTRICIAN Narrative 08/24/2024 8:32 PM POWERHOUSE ELECTRICIAN EXAM DESCRIPTION: CT CERVICAL SPINE WO CONTRAST REASON FOR STUDY: Neck trauma (Age >= 65y) 83 y.o. female presenting to the ED by EMS following an unwitnessed ground [facility] fall at her SNF. Patient states she went into the bathroom to get toilet paper, and slipped on water on the floor. She is complaining of right hip pain. Per EMS pt is A x 1 as her baseline. Hx: HTN TECHNIQUE: Axial images through the cervical spine with sagittal and coronal reformatted images. Automated exposure control was used as a dose optimization technique for this examination. COMPARISON: None FINDINGS: VERTEBRAE: Vertebral bodies are normal in height and alignment. Moderate to advanced disc disease and facet arthropathy. Facet joints and craniocervical junction are congruent. No spinal fracture identified. OTHER OSSEOUS STRUCTURES: Visualized ribs, clavicles, and scapula are intact. Visualized skull base and mandible appear normal. SOFT TISSUES: Unremarkable. INTRACRANIAL: Unremarkable. IMPRESSION: No fracture or malalignment identified. THIS IS AN ELECTRONICALLY VERIFIED FINAL REPORT 08/24/2024 8:32 PM - Electronically signed by Sixto MELENDREZ T: Report ID: [id number] Reading Location: [id number] Procedure Note Sixto Hopkins MD - 08/24/2024 EXAM DESCRIPTION: CT CERVICAL SPINE WO CONTRAST REASON FOR STUDY: Neck trauma (Age >= 65y) 83 y.o. female presenting to the ED by EMS following an unwitnessedground [facility] fall at her SNF. Patient states she went into the bathroom to gettoilet paper, and slipped on water on the floor. She is complaining of right hip pain. Per EMS pt is A x 1 as her baseline. Hx: HTN TECHNIQUE: Axial images through the cervical spine with sagittal andcoronal reformatted images. Automated exposure control was used as a doseoptimization technique for this examination. COMPARISON: None FINDINGS: VERTEBRAE: Vertebral bodies are normal in height and alignment.Moderate to advanced disc disease and facet arthropathy. Facet joints and craniocervical junction are congruent. No spinal fracture identified. OTHER OSSEOUS STRUCTURES: Visualized ribs, clavicles, and scapula areintact. Visualized skull base and mandible appear normal. SOFT TISSUES: Unremarkable. INTRACRANIAL: Unremarkable. IMPRESSION: No fracture or malalignment identified. THIS IS AN ELECTRONICALLY VERIFIED FINAL REPORT 08/24/2024 8:32 PM - Electronically signed by Sixto Hopkins M.D. AR T: Report ID: [id number] Reading Location: [id number] Kellie Rodriguez GISELL IM CT PROCEDURES Final Result * CT Head WO Contrast (08/24/2024 8:18 PM POWERHOUSE ELECTRICIAN) Anatomical Region Laterality Modality Head and Neck N/A Computed Tomogra phy 08/24/2024 8:33 PM POWERHOUSE ELECTRICIAN Narrative 08/24/2024 8:34 PM POWERHOUSE ELECTRICIAN EXAM DESCRIPTION: CT HEAD WO CONTRAST REASON FOR STUDY: Head trauma, moderate-severe 83 y.o. female presenting to the ED by EMS following an unwitnessed ground level fall at her SNF. Patient states she went into the bathroom to get toilet paper, and slipped on water on the floor. She is complaining of right hip pain. Per EMS pt is A x 1 as her baseline. Hx: HTN TECHNIQUE: Axial images acquired through the brain without intravenous contrast. Images stored on PACS. Automated exposure control was used as a dose optimization technique for this examination. COMPARISON: 02/25/2024 FINDINGS: BRAIN: No mass, hemorrhage, or recent infarct. Normal white matter. Volume within normal limits for age. VASCULAR: No dense vessel or obvious aneurysm. EXTRA-AXIAL SPACES: No mass or fluid collection. ORBITS/GLOBES: Unremarkable. SOFT TISSUES: Unremarkable. BONES/SINUSES: No fracture or lesion. Paranasal sinuses and other skullbase airspaces are clear. IMPRESSION: No acute abnormality identified. THIS IS AN ELECTRONICALLY VERIFIED FINAL REPORT 08/24/2024 8:34 PM - Electronically signed by Sixto Hopkins M.D. AR T: Report ID: [id number] Reading Location: [id number] Procedure Note Sixto Hopkins MD - 08/24/2024 EXAM DESCRIPTION: CT HEAD WO CONTRAST REASON FOR STUDY: Head trauma, moderate-severe 83 y.o. female presenting to the ED by EMS following an unwitnessedground [facility] fall at her SNF. Patient states she went into the bathroom to gettoilet paper, and slipped on water on the floor. She is complaining of right hip pain. Per EMS pt is A x 1 as her baseline. Hx: HTN TECHNIQUE: Axial images acquired through the brain without intravenous contrast. Images stored on PACS. Automated exposure control was used asa dose optimization technique for this examination. COMPARISON: 02/25/2024 FINDINGS: BRAIN: No mass, hemorrhage, or recent infarct. Normal white matter. Volume within normal limits for age. VASCULAR: No dense vessel or obvious aneurysm. EXTRA-AXIAL SPACES: No mass or fluid collection. ORBITS/GLOBES: Unremarkable. SOFT TISSUES: Unremarkable. BONES/SINUSES: No fracture or lesion. Paranasal sinuses and otherskullbase airspaces are clear. IMPRESSION: No acute abnormality identified. THIS IS AN ELECTRONICALLY VERIFIED FINAL REPORT 08/24/2024 8:34 PM - Electronically signed by Sixto Hopkins M.D. AR T: Report ID: [id number] Reading Location: [place] [address] PROCEDURES Final Result * Differential, auto (08/24/2024 7:53 PM POWERHOUSE ELECTRICIAN) Neutrophil abs 4.9 1.5 - 6.5 K/cumm Imm gran abs 0.0 0.0 - 0.1 K/cumm [facility] Lymphocyte abs 1.2 0.8 - 3.3 K/cumm [facility] Monocyte abs 0.6 0.2 - 0.8 K/cumm [facility] Eosinophil abs 0.1 0.0 - 0.5 K/cumm [facility] Basophil abs 0.0 0.0 - 0.1 K/cumm [facility] Neutrophil pct 72.7 % [facility] Comment: Interpretive Data Percent cell count reference ranges are not reported, since discordance with absolute values may lead to misinterpretation of CBC data. Current Interpretive Data was last revised on 2017. Imm gran pct 0.4 % [facility] Comment: Interpretive Data Percent cell count reference ranges are not reported, since discordance with absolute values may lead to misinterpretation of CBC data. Current Interpretive Data was last revised on 2017. Lymphocyte pct 17.9 % [facility] Comment: Interpretive Data Percent cell count reference ranges are not reported, since discordance with absolute values may lead to misinterpretation of CBC data. Current Interpretive Data was last revised on 2017. Monocyte pct 8.2 % [facility] Comment: Interpretive Data Percent cell count reference ranges are not reported, since discordance with absolute values may lead to misinterpretation of CBC data. Current Interpretive Data was last revised on 2017. Eosinophil pct 0.7 % [facility] Comment: Interpretive Data Percent cell count reference ranges are not reported, since discordance with absolute values may lead to misinterpretation of CBC data. Current Interpretive Data was last revised on 2017. Basophil pct 0.1 % [facility] Comment: Interpretive Data Percent cell count reference ranges are not reported, since discordance with absolute values may lead to misinterpretation of CBC data. Current Interpretive Data was last revised on 2017. Blood 08/24/2024 7:53 PM POWERHOUSE ELECTRICIAN 08/24/2024 8:00 PM POWERHOUSE ELECTRICIAN us Kellie JAMESON LAB BLOOD ORDERABLES Final Resu lt [facility] [address] Department [place] [address] * (ABNORMAL) CBC with auto differential (08/24/2024 7:53 PM POWERHOUSE ELECTRICIAN) WBC 6.8 3.8 - 9.9 K/cumm Hgb 12.8 11.9 - 15.5 g/dL [facility] Hct 38.9 35.6 - 45.5 % [facility] Plt 138(L) 150 - 400 K/cumm [facility] MPV 11.9 9.1 - 12.3 fL [facility] RBC 4.39 3.90 - 5.20 M/cumm [facility] MCV 88.6 81.3 - 96.4 fL [facility] MCH 29.2 27.1 - 33.3 pg [facility] MCHC 32.9 32.3 - 35.7 g/dL [facility] RDW CV 13.7 11.1 - 14.9 % [facility] RDW SD 44.6 35.7 - 48.1 fL [facility] NRBC abs 0.00 0.00 - 0.01 K/cumm [facility] Blood 08/24/2024 7:53 PM POWERHOUSE ELECTRICIAN 08/24/2024 8:00 PM POWERHOUSE ELECTRICIAN Kellie JAEMSON LAB BLOOD ORDERABLES Final Resu lt [facility] [address] Department [place] [address] * XR Hip Right 2 or 3 Views (08/24/2024 7:52 PM POWERHOUSE ELECTRICIAN) Anatomical Region Laterality Modality Lower Extremities, Hip, Pelvis Right C omputed Radiography 08/24/2024 8:30 PM POWERHOUSE ELECTRICIAN Narrative 08/24/2024 8:31 PM POWERHOUSE ELECTRICIAN EXAM DESCRIPTION: XR HIP RIGHT 2 OR 3 VIEWS REASON FOR STUDY: trauma, concern for fracture Patient BIBEMS from [facility] with complaints of fall. EMS reports shortened and rotated right leg. Patient slipped and fell on water in the bathroom tonight. EMS reports patient is AAOx1 baseline. Patient stated when they turned in the bathroom, their foot hit some water and they couldn't stop themselves from falling. Patient endorses: Right hip pain. PMHx: Alzheimer's, HTN, osteoporosis. No signs of respiratory distress noted, AAOx3. Right leg rotation and shortened noted. TECHNIQUE: Frontal and lateral views of the right hip . COMPARISON: None FINDINGS: BONES/JOINTS: Impacted intertrochanteric right proximal femur fracture. Mild hip and spine arthritis. SOFT TISSUES: Unremarkable. IMPRESSION: Impacted intertrochanteric right proximal femur fracture. THIS IS AN ELECTRONICALLY VERIFIED FINAL REPORT 08/24/2024 8:31 PM - Electronically signed by Sixto MELENDREZ T: Report ID: [id number] Reading Location: [id number] Procedure Note Sixto Hopkins MD - 08/24/2024 EXAM DESCRIPTION: XR HIP RIGHT 2 OR 3 VIEWS REASON FOR STUDY: trauma, concern for fracture Patient BIBEMS from [facility] with complaints of fall. EMS reports shortened and rotated right leg. Patient slipped and fell on water in the bathroom tonight. EMS reports patient is AAOx1 baseline. Patientstated when they turned in the bathroom, their foot hit some water and theycouldn't stop themselves from falling. Patient endorses: Right hip pain. PMHx: Alzheimer's, HTN, osteoporosis. No signs of respiratory distress noted, AAOx3. Right leg rotation and shortened noted. TECHNIQUE: Frontal and lateral views of the right hip . COMPARISON: None FINDINGS: BONES/JOINTS: Impacted intertrochanteric right proximal femur fracture. Mild hip and spine arthritis. SOFT TISSUES: Unremarkable. IMPRESSION: Impacted intertrochanteric right proximal femur fracture. THIS IS AN ELECTRONICALLY VERIFIED FINAL REPORT 08/24/2024 8:31 PM - Electronically signed by Sixto Hopkins M.D. AR T: Report ID: [id number] Reading Location: [place] [address] us Kellie JAMESON IMG XR PROCEDURES Final Result * eGFR (08/24/2024 7:24 PM POWERHOUSE ELECTRICIAN) eGFR 62 >=60 mL/min/1. 73 m2 Comment: Interpretive Data Reference Interval Normal >/= 90 mL/min/1.73m2 Mildly decreased* 60 - 89 mL/min/1.73m2 Mildly to moderately decreased 45 - 59 mL/min/1.73m2 Moderately to severely decreased 30 - 44 mL/min/1.73m2 Severely decreased 15 - 29 mL/min/1.73m2 Kidney Failure < 15 mL/min/1.73m2 *Relative to young adult level Estimated glomerular filtration rate is determined by the 2020 CKD-EPI equation recommended by the National Kidney Foundation (A Unifying Approach to GFR Estimation: Recommendations of the NKF-ASK Task Force on Reassessing the Inclusion of Race in Diagnosing Kidney Disease, JASN 202). The CKD-EPI equation should not be used for patients with unstable renal function and has not been validated in children and those over 70. Current interpretive data was last reviewed 2021. Blood 08/24/2024 7:24 PM POWERHOUSE ELECTRICIAN 08/24/2024 7:25 PM POWERHOUSE ELECTRICIAN us Kellie JAMESON LAB BLOOD ORDERABLES Final Resu lt [facility] [address] Department [place] [address] * Comprehensive metabolic panel (08/24/2024 7:24 PM POWERHOUSE ELECTRICIAN) Sodium 141 135 - 145 mmol/L Potassium, pl 4.5 3.3 - 4.9 mmol/L [facility] Comment:Hemolyzed; Potassium value may be falsely elevated by as much as 1.0 mmol/L. Suggest redraw and reanalysis. Chloride 104 97 - 110 mmol/L [facility] CO2 27 22 - 32 mmol/L [facility] Anion gap 10 2 - 15 mmol/L [facility] BUN 16 6 - 25 mg/dL [facility] Creatinine 0.91 0.60 - 1.10 mg/dL [facility] Glucose 158 70 - 199 mg/dL [facility] Comment: Interpretive Data Fasting glucose >/= 126 mg/dl is diagnostic for diabetes. Fasting is defined as no caloric intake for at least 8 hours. Fasting glucose between 100 mg/dl to 125 mg/dl is diagnostic of prediabetes. In a patient with classic symptoms of hyperglycemia or hyperglycemic crisis, a random glucose >/= 200 mg/dl is diagnostic for diabetes. In the absence of unequivocal hyperglycemia, results should be confirmed by repeat testing. The classification and Diagnosis of Diabetes Diabetes Care 202; 46: S19-S40. Current interpretive data was last revised 2022. Calcium 10.0 8.5 - 10.3 mg/dL [facility] Bilirubin, total 1.0 0.1 - 1.2 mg/dL [facility] Protein, pl 7.8 6.5 - 8.5 g/dL [facility] Albumin 4.4 3.5 - 5.0 g/dL [facility] Alk phos 79 40 - 130 Units/L [facility] ALT 32 7 - 45 Units/L [facility] AST See Comment 10 - 45 [facility] Comment:Credited; Hemolyzed Specimen Blood 08/24/2024 7:24 PM POWERHOUSE ELECTRICIAN 08/24/2024 7:25 PM POWERHOUSE ELECTRICIAN Kellie JAMESON LAB BLOOD ORDERABLES Final Resu lt [facility] [address] Department [place] [address] from Last 3 Months Insurance [employer] SENIOR SUPPLEMENT MEDICARE MEDICARE [employer] SENIOR [employer]MENT Advance Directives For more information, please contact: [phone] Documents on File Type Date Recorded 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 Use antibiotics, IV Fluids, and medical treatment unless specifically selected below: No intubation Care Teams Construction Inspector Relationship Specialty Start Date End Date Lukas Herrera MD [address] [place] [address] PCP - General Internal Medicine 09/23/24 Luiza Gibbs PA [address] [place] [address] Orthopedic Surgery 08/27/24
--- OUTSIDE RECORDS SUMMARY | 2024-11-14 21:33 | XMS_ITS | Continuity of Care Document ---
Author Organization [facility] Address [address] [place] [address] [address] [place] [address] Phone Care Team Providers Care Sign Manufacturer Name Role Phone Rebecca Pugh Unavailable Unavailable Procedures Procedure Date Eye Exam & Treatment Eye Exam & Treatment Refraction Advance Directives Directive Yes / No Effective Date File Name No Information Encounters Encounter Description Practice Location Reason(s) For Visit Diagnoses Date Provider Providers Copied on Encounter [facility], [address] [place] [address] [address], [place], [place], [id number], tel:[phone] [place] No Information 8 Lexy Faustin [address] , [address], [place], [address], [place]. tel:[phone] [facility], [address] [place] [address] [address], [place], [place], [id number], tel:[phone] [facility] [place] No Information 8 Lexy Faustin [address] , [address], [place], [address], [place]. tel:[phone] Family History Family Member Type Diagnosis Age At Onset No Information Payers Payer name Insurance type Covered libertarian ID Authoriza tion(s) [place] [id number] Social History Type Description Quantity Date Captured Comments Sex Female Smoking Status No Information Chief Complaint And Reason For Visit No Information Reason For Referral Reason For Referral No Information History Of Present Illness Encounter Date Complaint History Of Prese nt Illness No Information Functional Status Date Functional Assessmen t No Information Instructions Date Instruction Additional Infor mation No Information Assessments Type Assessment Date No Information Patient Care Teams Name Effective Dates (start - stop) Status Members No Information
--- OUTSIDE RECORDS SUMMARY | 2024-11-14 21:33 | XMS_ITS | Referral Summary ---
Author Organization [facility] [address] Address [address] [place] [address] Care Team Providers Care Tools Developer Name Role Phone Bernie Luiza JAMESON Unavailable [phone] Lukas Herrera MD Primary Care Provider [phone] Encounters Date Type Department Care Team Description 09/23/2024 Telephone [facility] Medical Group Post Acute Care [address] [facility] [address] [address] Kristi Anthony MA 09/19/2024 NH/SNF Visit [facility] Medical [facility] Post Acute Care [address] [phone] Marian Garay NP Closed fracture of right hip, with routine healing, subsequent encounter (Primary Dx); 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 behavioral disturbance, psychotic disturbance, mood disturbance, or anxiety (HCC); Primary hypertension; Syncope and collapse; Mixed hyperlipidemia; Urinary retention 09/17/2024 NH/SNF Visit [facility] Medical [facility] Post Acute Care [address] [phone] Marian Garay NP Closed fracture of right hip, with routine healing, subsequent encounter (Primary Dx); 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 behavioral disturbance, psychotic disturbance, mood disturbance, or anxiety (HCC); Primary hypertension 09/12/2024 NH/SNF Visit [facility] Medical [facility] Post Acute Care [address] [phone] Marian Garay NP Closed fracture of right hip, with routine healing, subsequent encounter (Primary Dx); 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 behavioral disturbance, psychotic disturbance, mood disturbance, or anxiety (HCC); Transient alteration of awareness 09/11/2024 10:14 AM CDT - 09/11/2024 11:59 PM CDT Hospital Encounter [facility] [address] [place] [address] Closed fracture of right hip, initial encounter (HCC) Discharge Disposition: Discharge to home or self care 09/11/2024 10:15 AM CDT Office Visit [facility] Medical [facility] Orthopedics and Sports Medicine [facility] [address] [phone] Luiza Gibbs PA Status post hip hemiarthroplasty (Primary Dx); Closed fracture of right hip, initial encounter (HCC); Superficial incisional infection of surgical site 09/10/2024 NH/SNF Visit [facility] Medical [facility] Post [address] [phone] Marian Garay NP Status post hip hemiarthroplasty (Primary Dx); 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 behavioral disturbance, psychotic disturbance, mood disturbance, or anxiety (HCC); Primary hypertension 09/03/2024 NH/SNF Visit [facility] Medical [facility] Post [address] [phone] Deanne Perdue MD Primary hypertension (Primary Dx); Mixed hyperlipidemia; 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 behavioral disturbance, psychotic disturbance, mood disturbance, or anxiety (HCC); Closed fracture of right hip, with routine healing, subsequent encounter; Moderate protein-calorie malnutrition; Urinary retention; Syncope and collapse 09/02/2024 NH/SNF Visit [facility] Medical [facility] Post Acute Care [address] [phone] Marian Garay NP Closed fracture of right hip, with routine healing, subsequent encounter (Primary Dx); Urinary retention; 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 behavioral disturbance, psychotic disturbance, mood disturbance, or anxiety (HCC); Hypoxia; Primary hypertension 08/31/2024 8:00 PM CDT - 09/01/2024 11:02 AM CDT Emergency [address] [address] Kaelyn Ansari MD Fall, initial encounter (Primary Dx) Discharge Disposition: Discharge to home or self care 08/29/2024 NH/SNF Visit [facility] Medical [facility] Post Acute Care [address] [phone] Deanne Perdue MD Primary hypertension (Primary Dx); Mixed hyperlipidemia; 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 behavioral disturbance, psychotic disturbance, mood disturbance, or anxiety (HCC); Closed fracture of right hip, initial encounter (HCC); Moderate protein-calorie malnutrition; Urinary retention; Hypoxia 08/29/2024 Telephone [facility] Medical [facility] Hospitalists [address] [place] [phone] Marian Garay NP After Hours 08/28/2024 NH/SNF Visit [facility] Post Acute Care [address] [phone] Marian Garay NP Closed fracture of right hip, with routine healing, subsequent encounter (Primary Dx); Hypoxia; 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 behavioral disturbance, psychotic disturbance, mood disturbance, or anxiety (HCC); Urinary retention; Primary hypertension; Syncope and collapse; Mixed hyperlipidemia 08/24/2024 6:56 PM LUMBER KILN OPERATOR - 08/28/2024 12:30 PM CDT Hospital Encounter [address] [address] Gino Amanda MD Potluri, Sobhana Krishna, MD Closed fracture of right hip, initial encounter (HCC) (Primary Dx) Discharge Disposition: Discharge to home or self care 08/25/2024 10:15 AM CDT Anesthesia Event [facility] [place] [address] [place] [address] Ramses Hernandez MD 08/25/2024 10:30 AM CDT - 08/25/2024 12:50 PM CDT Surgery [facility] OR [address] [place] [id number] Rick Hernandez, RIGHT HIP HEMIARTHROPLASTY from Last 3 Months Allergies Active Allergy Reactions Criticality Noted Date Comments Codeine Nausea & Vomiting Low 02/25/2024 Medications atorvastatin (LIPITOR) 10 mg tablet Take 1 tablet (10 mg total) by mouth daily Active levothyroxine (SYNTHROID) 50 mcg tablet Take 1 tablet (50 mcg total) by mouth furniture finisher before breakfast Active metoprolol XL (Toprol XL) [...] Assessment & Plan (09/16/2024 9:25 AM CDT): Weichert 08/25 following fall Continue PT/OT with WBAT [...] for WBAT to continue PT/OT DC to [facility] with ortho f/u as scheduled Assessment & Plan (09/20/2024 4:55 PM CDT): S/p hemiarthroplasty dr Coates 08/25 following fall No change in sx today following same level fall Ambulates with gait belt and walker Surgical incision healing as expected Denies pain PRN tylenol available Continue PO doxy per ortho recs OK for WBAT to continue PT/OT DC to [facility] pending Assessment & Plan (09/12/2024 2:41 PM CDT): Surgical incision healing as expected Denies pain PRN tylenol available Continue PO doxy per ortho recs OK for WBAT to continue PT/OT Assessment & Plan (09/07/2024 9:08 PM CDT): S/p hemiarthroplasty 08/25 following fall in [facility] Repeat films with appropriate anatomic alignment following [...] (09/01/2024 9:25 PM CDT): S/p hemiarthroplasty 08/25 [place] Complicated [...] s/p right hemiarthroplasty, ortho follow up scheduled 3/26 Incision c/d/I, continue daily bandage changes/wound care Acetaminophen 650 mg TID for hip pain No opiates per family as pt does not tolerate Continue Calcium supplementation Vitamin D 500 mcg one tablet by mouth daily Sensation of fullness in both ears 05/02/2024 Assessment & Plan (05/02/2024 7:49 PM LUMBER KILN OPERATOR): Normal exam today, consider getting hearing checked, [...] DC as able Plans to return to [facility] following rehab stay Assessment & Plan (09/03/2024 [...] hygiene Pt well known to me from [facility] and has severe cognitive impairment, at high risk for post operative complications and fall Assessment & Plan (08/29/2024 2:43 PM CDT): Chronic, stable Pt is not agitated Alert to person, not to place or time Baseline Assessment & Plan (07/12/2024 7:26 PM LUMBER KILN OPERATOR): Has adjusted well to [facility] setting Pleasantly confused with no reports of anxiety or agitation Continue sertraline 25 mg daily Monitor weight and nutrition Remote sleep hygiene Okay to DC HS melatonin Assessment & Plan (05/02/2024 7:50 PM LUMBER KILN OPERATOR): Stable on sertraline 25mg daily, continue supportive [...] as she was involved in these in [facility] prior to decline. Check basic labs this week, encourage oral nutrition and hydration, promote sleep hygiene and monitor for falls. Likely would benefit from transition to memory care as condition progresses. Age-related osteoporosis wit hout current pathological fracture 03/08/2024 Assessment & Plan (07/12/2024 7:37 PM LUMBER KILN OPERATOR): Continue alendronate Add calcium supplement with vitamin-D [...] and olmesartan and metoprolol held Resumed at [place] Will need to monitor and hold as necessary Assessment & Plan (08/29/2024 2:45 PM CDT): Chronic, stable Continue Metoprolol 25 mg by mouth daily, and Olmesartan 20 mg daily BP has been appropriate, logs reviewed, 146/54 today GDR as able for BP goal less than 150 over less than 90 Assessment & Plan (07/12/2024 7:22 PM LUMBER KILN OPERATOR): BP logs reviewed, SBP 110-120 Continue olmesartan [...] daily Assessment & Plan (07/12/2024 7:26 PM LUMBER KILN OPERATOR): Lipid panel stable on atorvastatin 10 mg Ldl 86 Chol 150 Trig 73 Continue for now Plan to [place] at subsequent visit given age and frailty Assessment & Plan (03/08/2024 11:51 AM CDT): Continue atorvastatin, check lipid panel with admission labs Resolved Problems Problem Noted Date Diagnosed Date Resolved Date Functional diarrhea 07/12/2024 09/02/19 Assessment & Plan (07/12/2024 7:37 PM LUMBER KILN OPERATOR): Describes as in the morning only and feels this is related to HS melatonin, likely unrelated but we will DC HS melatonin for now Check BMP with routine labs Abdominal exam benign Encourage oral hydration Dizziness 02/29/2024 09/07/2024 Assessment & Plan (05/02/2024 7:50 PM LUMBER KILN OPERATOR): Exam is benign, encourage oral hydration, recent labs reassuring, will work up if sx persist Assessment & Plan (03/08/2024 11:50 AM CDT): Vertigo considered given recurrence of sx and improvement with meclizine, ok to continue low dose prn for now; DC dramamine, discussed with son risks Social History Tobacco Use Types Packs/Day Years Used Date Smoking Tobacco: Never Tobacco Cessation:Counseling Given: Not Answered [facility] Utilities Answer Date Recorded In the past 12 months has [employer], gas, oil, or water [employer] threatened to shut off services in your [...] answer 08/26/2024 How often do you attend [facility] services? Patient unable to answer 08/26/2024 Do you belong to any clubs o r organizations such as voodoo groups, unions, fraternal or athletic groups, or [...] any time in the past 12 m [facility], were you homeless or living in a assisted (including now)? Patient unable to answer 08/26/2024 Personal Safety Answer Date Recorded Have you ever been in or are you currently in a harmful physical or emotional relationship or is someone making you feel afraid or unsafe? Patient unable to answer 08/31/2024 Comments No Sex and Gender Information Value Date Recorded Sex Assigned at Not on file Legal Sex Female 2:33 AM LUMBER KILN OPERATOR Gender Identity Not on file Sexual Orientation Not on file Last Filed Vital Signs Vital Sign Reading [...] 09/11/2024 10:48 AM CDT Plan of Treatment Not on file Medical Devices Implanted Type Area Corporate Concierge Device Identifier Shelf Expiration Date Model / Serial / Lot [employer] Simplex P Radiopaque Full Dose Cement Bone Sterile 6191-1-010 - [id number] Implanted:Qty: 2 on 08/25/2024 by Rick Hernandez DO at [facility] Right: Hip [employer] 02/16/2027 6191-1-010 / / [id number] [employer] Restrictor Hip Cement Kit Bone Preparation Bioprep [id number] - [id number] Implanted:Qty: 1 on 08/25/2024 by Rick Hernandez DO at [facility] Right: Hip [employer] 05/19/2029 [id number] / / [id number] [employer] Scott 114mm Cemented Hip 4 06/01 Standard Offset Taper Stem [id number] - [id number] Implanted:Qty: 1 on 08/25/2024 by Rick Hernandez DO at [facility] Right: Hip [employer] [id number] 06/18/2029 [id number] / / [employer] Cementralizer 9.25mm Cemented Hip Femur Centralizer Stem Pmma Latex Free [id number] - [id number] Implanted:Qty: 1 on 08/25/2024 by Rick Hernandez DO at [facility] Right: Hip [employer] [id number] 03/18/2028 [id number] / / [employer] Self-Centering 49mm 28mm Hip Femur Head Bipolar Sterile Brown [id number] - [id number] Implanted:Qty: 1 on 08/25/2024 by Rick Hernandez DO at [facility] Right: Hip [employer] [id number] 01/16/2029 [id number] / / [id number] [employer] Articul/Josué 28mm Hip +5mm 12/14 Taper Head Femoral Cocr Sterile Latex Free 1365-12-000 - [id number] Implanted:Qty: 1 on 08/25/2024 by Rick Hernandez DO at [facility] Right: Hip [employer] Inc [id number] 06/18/2029 1365--000 / / [id number] Procedures Procedure Name Priority Date/Time Associated Diagnosis [...] 3 VIEWS ED 08/25/2024 12:20 PM CDT RI AN PROCEDURE PLACEHOLDER Routine 08/25/2024 10:36 AM CDT RI AN ELECTIVE ENDOTRACHEAL AIRWAY Routine 08/25/2024 10:36 AM CDT PROSTHESIS HIP - BIPOLAR 08/25/2024 10:14 AM CDT URINALYSIS AND REFLEX TO MICROSCOPIC AND CULTURE STAT 08/25/2024 6:[address] PELVIS WO CONTRAST ED Urgent/IP Urgent 08/24/2024 9:50 PM [address] KILN OPERATOR CT CERVICAL SPINE WO CONTRAST ED 08/24/2024 8:18 PM LUMBER KILN OPERATOR CT HEAD WO CONTRAST ED 08/24/2024 8 :18 PM LUMBER KILN OPERATOR DIFFERENTIAL AUTO STAT 08/24/2024 7:5 3 PM LUMBER KILN OPERATOR CBC WITH AUTO DIFFERENTIAL STAT 08/24/2024 7:53 PM LUMBER KILN OPERATOR XR HIP RIGHT 2 OR 3 VIEWS ED 08/24/2024 7:52 PM LUMBER KILN OPERATOR EGFR STAT 08/24/2024 7:24 PM LUMBER KILN OPERATOR COMPREHENSIVE METABOLIC PANEL STAT 08/24/2024 7:24 PM LUMBER KILN OPERATOR from Last 3 Months Results * XR [...] Lavon Osei D.O. AP T: Report ID: [id number] Reading Location: [id number] Procedure Note Lavon Osei, DO - 09/18/2024 [...] Lavon Osei D.O. AP T: Report ID: [id number] Reading Location: [place] [address] Luiza JAMESON IMG XR PROCEDURES Final Re [...] with voice recognition software. Occasional wrong-word or 'uiozo-t-vztq' substitutions may have occurred due to the [...] with voice recognition software. Occasional wrong-word or 'ywodo-g-oqju' substitutions may have occurred due to the [...] Hudson Turner M.D. MM T: Report ID: [id number] Reading Location: [place] [address] Procedure Note Hudson Turner MD - 08/31/2024 EXAM DESCRIPTION: CT HEAD WO CONTRAST; CT CERVICAL SPINE WO CONTRAST REASON FOR STUDY: Head trauma, minor (Age >= 65y) Portions of the record may have been created with voice recognitionsoftware. Occasional wrong-word or 'lhawq-i-vaap' substitutions may have occurreddue to the inherent [...] created with voice recognitionsoftware. Occasional wrong-word or 'ikgce-s-ygfv' substitutions may have occurreddue to the inherent [...] Hudson Turner M.D. MM T: Report ID: [id number] Reading Location: [place] [address] Kaelyn Ansari MD IMG CT PROCEDURES Final [...] with voice recognition software. Occasional wrong-word or 'toocp-x-htub' substitutions may have occurred due to the inherent limitations of voice recognition software. Read the chart carefully and recognize, using context, where substitutions have occurred. H: Paty Cristina is a 83 y.o. female with h/o dementia, right hip hemiarthroplasty on 3/9 (today is POD #6), on Eliquis for [...] with voice recognition software. Occasional wrong-word or 'mipsf-f-uept' substitutions may have occurred due to the [...] Hudson Turner M.D. MM T: Report ID: [id number] Reading Location: [id number] Procedure Note Hudson Turner MD - 08/31/2024 EXAM DESCRIPTION: CT HEAD WO CONTRAST; CT CERVICAL SPINE WO CONTRAST REASON FOR STUDY: Head trauma, minor (Age >= 65y) Portions of the record may have been created with voice recognitionsoftware. Occasional wrong-word or 'utrzi-f-vefc' substitutions may have occurreddue to the inherent [...] created with voice recognitionsoftware. Occasional wrong-word or 'hymfg-o-sttj' substitutions may have occurreddue to the inherent [...] Hudson Turner M.D. MM T: Report ID: [id number] Reading Location: [id number] [place] Kaelyn Ansari MD IMG CT PROCEDURES [...] Sixto Hopkins M.D. AR T: Report ID: [id number] Reading Location: [id number] Procedure Note Sixot Hopkins MD - 08/31/2024 EXAM DESCRIPTION: XR [...] Sixto Hopkins M.D. AR T: Report ID: [id number] Reading Location: [id number] [place] Kaelyn Ansari MD IMG XR PROCEDURES [...] Sixto Hopkins M.D. AR T: Report ID: [id number] Reading Location: [id number] Procedure Note Sixto Hopkins MD - 08/31/2024 [...] Sixto Hopkins M.D. AR T: Report ID: [id number] Reading Location: [id number] [place] Kaelyn Ansari MD IMG XR PROCEDURES Final Result * (ABNORMAL) Hemoglobin and hematocrit (08/28/2024 8:29 AM CDT) Hgb 8.2(L) 11.9 - 15.5 g/dL Hct 25.2(L) 35.6 - 45.5 % [facility] Blood 08/28/2024 8:29 AM CDT 08/28/2024 8:51 AM CDT Selena Allan MD LAB BLOOD ORDERABLES Final Result [facility] [address] [facility] Department [place] [address] * (ABNORMAL) eGFR (08/28/2024 5:24 AM CDT) [...] Allan MD LAB BLOOD ORDERABLES Final Result [place] [address] [facility] [place] [address] * (ABNORMAL) Basic metabolic panel (08/28/2024 5:24 AM CDT) [facility] Sodium 139 135 - 145 mmol/L Potassium, pl 3.9 3.3 - 4.9 mmol/L [facility] Chloride 106 97 - 110 mmol/L [facility] CO2 27 22 - 32 mmol/L [facility] Anion gap 6 2 - 15 mmol/L [facility] BUN 33(H) 6 - 25 mg/dL [facility] Creatinine 1.13(H) 0.60 - 1.10 mg/dL [facility] Glucose 104 70 - 199 mg/dL [facility] Comment: Interpretive Data Fasting glucose >/= 126 [...] 2022. Calcium 8.4(L) 8.5 - 10.3 mg/dL [facility] Blood 08/28/2024 5:24 AM CDT 08/28/2024 5:57 AM CDT Selena Allan MD LAB BLOOD ORDERABLES Final Result [place] [address] [facility] Department [place] [address] * (ABNORMAL) eGFR (08/27/2024 3:45 PM CDT) [facility] eGFR 22(L) >=60 mL/min/1. 73 m2 Comment: [...] Allan MD LAB BLOOD ORDERABLES Final Result [facility] [address] [facility] Department [place] [address] * (ABNORMAL) Differential, auto (08/27/2024 3:45 PM CDT) Neutrophil abs 5.7 1.5 - 6.5 K/cumm Imm gran abs 0.0 0.0 - 0.1 K/cumm [facility] Lymphocyte abs 0.9 0.8 - 3.3 K/cumm [facility] Monocyte abs 1.0(H) 0.2 - 0.8 K/cumm [facility] Eosinophil abs 0.1 0.0 - 0.5 K/cumm [facility] Basophil abs 0.0 0.0 - 0.1 K/cumm [facility] Neutrophil pct 74.0 % [facility] Comment: Interpretive Data Percent cell count reference ranges are not reported, since discordance with absolute values may lead to misinterpretation of CBC data. Current Interpretive Data was last revised on 2017. Imm gran pct 0.5 % [facility] Comment: Interpretive Data Percent cell count reference ranges are not reported, since discordance with absolute values may lead to misinterpretation of CBC data. Current Interpretive Data was last revised on 2017. Lymphocyte pct 11.7 % [facility] Comment: Interpretive Data Percent cell count reference ranges are not reported, since discordance with absolute values may lead to misinterpretation of CBC data. Current Interpretive Data was last revised on 2017. Monocyte pct 12.4 % [facility] Comment: Interpretive Data Percent cell count reference ranges are not reported, since discordance with absolute values may lead to misinterpretation of CBC data. Current Interpretive Data was last revised on 2017. Eosinophil pct 1.3 % [facility] Comment: Interpretive Data Percent cell count reference ranges are not reported, since discordance with absolute values may lead to misinterpretation of CBC data. Current Interpretive Data was last revised on 2017. Basophil pct 0.1 % [facility] Comment: Interpretive Data Percent cell count reference ranges are not reported, since discordance with absolute values may lead to misinterpretation of CBC data. Current Interpretive Data was last revised on 2017. Blood 08/27/2024 3:45 PM CDT 08/27/2024 3:58 PM CDT us Selena Allan MD LAB BLOOD ORDERABLES Final Result [facility] [address] [facility] Department [place] [address] * (ABNORMAL) CBC with auto differential (08/27/2024 3:45 PM CDT) WBC 7.8 3.8 - 9.9 K/cumm Hgb 8.5(L) 11.9 - 15.5 g/dL [facility] Hct 27.3(L) 35.6 - 45.5 % [facility] Plt 123(L) 150 - 400 K/cumm [facility] MPV 12.7(H) 9.1 - 12.3 fL [facility] RBC 2.89(L) 3.90 - 5.20 M/cumm [facility] MCV 94.5 81.3 - 96.4 fL [facility] MCH 29.4 27.1 - 33.3 pg [facility] MCHC 31.1(L) 32.3 - 35.7 g/dL [facility] RDW CV 14.2 11.1 - 14.9 % [facility] RDW SD 48.7(H) 35.7 - 48.1 fL [facility] NRBC abs 0.00 0.00 - 0.01 K/cumm [facility] Blood 08/27/2024 3:45 PM CDT 08/27/2024 3:58 PM CDT Selena Allan MD LAB BLOOD ORDERABLES Final Result [facility] [address] [facility] Department [place] [address] * (ABNORMAL) Comprehensive metabolic panel (08/27/2024 3:45 PM CDT) Sodium 136 135 - 145 mmol/L Potassium, pl 4.0 3.3 - 4.9 mmol/L [facility] Chloride 103 97 - 110 mmol/L [facility] CO2 21(L) 22 - 32 mmol/L [facility] Anion gap 12 2 - 15 mmol/L [facility] BUN 39(H) 6 - 25 mg/dL [facility] Creatinine 2.16(H) 0.60 - 1.10 mg/dL [facility] Glucose 120 70 - 199 mg/dL [facility] Comment: Interpretive Data Fasting glucose >/= 126 [...] 2022. Calcium 8.1(L) 8.5 - 10.3 mg/dL [facility] Bilirubin, total 0.7 0.1 - 1.2 mg/dL [facility] Protein, pl 5.4(L) 6.5 - 8.5 g/dL [facility] Albumin 2.9(L) 3.5 - 5.0 g/dL [facility] Alk phos 54 40 - 130 Units/L [facility] ALT 11 7 - 45 Units/L [facility] AST 25 10 - 45 Units/L [facility] Blood 08/27/2024 3:45 PM CDT 08/27/2024 3:58 PM CDT Selena Allan MD LAB BLOOD ORDERABLES Final Result Performing Organization Address City/[facility]/ZIP Co de Phone Number CR[facility] [address] [employer] [place] [place] [address] * (ABNORMAL) CBC without differential (08/26/2024 10:41 AM CDT) [facility] WBC 8.1 3.8 - 9.9 K/cumm Hgb 9.1(L) 11.9 - 15.5 g/dL [facility] Hct 29.5(L) 35.6 - 45.5 % [facility] Plt 124(L) 150 - 400 K/cumm [facility] MPV 12.9(H) 9.1 - 12.3 fL [facility] RBC 3.07(L) 3.90 - 5.20 M/cumm [facility] MCV 96.1 81.3 - 96.4 fL [facility] MCH 29.6 27.1 - 33.3 pg [facility] MCHC 30.8(L) 32.3 - 35.7 g/dL [facility] RDW CV 14.0 11.1 - 14.9 % [facility] RDW SD 49.1(H) 35.7 - 48.1 fL [facility] NRBC abs 0.00 0.00 - 0.01 K/cumm [facility] Blood 08/26/2024 10:4 1 AM CDT 08/26/2024 11:20 AM CDT Selena Allan MD LAB BLOOD ORDERABLES Final Result Performing Organization Address City/[facility]/ZIP Co de Phone Number CRIS [address] [place] [address] * (ABNORMAL) eGFR (08/26/2024 7:52 AM CDT) Pathologist [facility] eGFR 52(L) >=60 mL/min/1. 73 m2 Comment: [...] Allan MD LAB BLOOD ORDERABLES Final Result [facility] [address] [facility] Department [place] [address] * (ABNORMAL) Basic metabolic panel (08/26/2024 7:52 AM CDT) [facility] Sodium 137 135 - 145 mmol/L Potassium, pl 4.4 3.3 - 4.9 mmol/L [facility] Comment:Hemolyzed; Potassium value may be falsely elevated by as much as 1.0 mmol/L. Suggest redraw and reanalysis. Chloride 104 97 - 110 mmol/L [facility] CO2 22 22 - 32 mmol/L [facility] Anion gap 11 2 - 15 mmol/L [facility] BUN 22 6 - 25 mg/dL [facility] Creatinine 1.06 0.60 - 1.10 mg/dL [facility] Glucose 102 70 - 199 mg/dL [facility] Comment: Interpretive Data Fasting glucose >/= 126 [...] 2022. Calcium 8.0(L) 8.5 - 10.3 mg/dL [facility] Blood 08/26/2024 7:52 AM CDT 08/26/2024 7:59 AM CDT Selena Allan MD LAB BLOOD ORDERABLES Final Result [facility] [address] [facility] Department [place] [address] * (ABNORMAL) Differential, auto (08/25/2024 5:15 PM CDT) Neutrophil abs 13.3(H) 1.5 - 6.5 K/cumm Imm gran abs 0.1 0.0 - 0.1 K/cumm [facility] Lymphocyte abs 0.6(L) 0.8 - 3.3 K/cumm [facility] Monocyte abs 0.8 0.2 - 0.8 K/cumm [facility] Eosinophil abs 0.0 0.0 - 0.5 K/cumm [facility] Basophil abs 0.0 0.0 - 0.1 K/cumm [facility] Neutrophil pct 90.1 % [facility] Comment: Interpretive Data Percent cell count reference ranges are not reported, since discordance with absolute values may lead to misinterpretation of CBC data. Current Interpretive Data was last revised on 2017. Imm gran pct 0.3 % [facility] Comment: Interpretive Data Percent cell count reference ranges are not reported, since discordance with absolute values may lead to misinterpretation of CBC data. Current Interpretive Data was last revised on 2017. Lymphocyte pct 4.1 % [facility] Comment: Interpretive Data Percent cell count reference ranges are not reported, since discordance with absolute values may lead to misinterpretation of CBC data. Current Interpretive Data was last revised on 2017. Monocyte pct 5.3 % [facility] Comment: Interpretive Data Percent cell count reference ranges are not reported, since discordance with absolute values may lead to misinterpretation of CBC data. Current Interpretive Data was last revised on 2017. Eosinophil pct 0.1 % [facility] Comment: Interpretive Data Percent cell count reference ranges are not reported, since discordance with absolute values may lead to misinterpretation of CBC data. Current Interpretive Data was last revised on 2017. Basophil pct 0.1 % [facility] Comment: Interpretive Data Percent cell count reference ranges are not reported, since discordance with absolute values may lead to misinterpretation of CBC data. Current Interpretive Data was last revised on 2017. Blood 08/25/2024 5:15 PM CDT 08/25/2024 5:35 PM CDT Selena Allan MD LAB BLOOD ORDERABLES Final Result [facility] [address] [facility] Department [place] [address] * (ABNORMAL) CBC with auto differential (08/25/2024 5:15 PM CDT) WBC 14.8(H) 3.8 - 9.9 K/cumm Hgb 10.7(L) 11.9 - 15.5 g/dL [facility] Hct 34.3(L) 35.6 - 45.5 % [facility] Plt 172 150 - 400 K/cumm [facility] MPV 12.8(H) 9.1 - 12.3 fL [facility] RBC 3.68(L) 3.90 - 5.20 M/cumm [facility] MCV 93.2 81.3 - 96.4 fL [facility] MCH 29.1 27.1 - 33.3 pg [facility] MCHC 31.2(L) 32.3 - 35.7 g/dL [facility] RDW CV 13.7 11.1 - 14.9 % [facility] RDW SD 46.9 35.7 - 48.1 fL [facility] NRBC abs 0.00 0.00 - 0.01 K/cumm [facility] Blood 08/25/2024 5:15 PM CDT 08/25/2024 5:35 PM CDT us Selena Allan MD LAB BLOOD ORDERABLES Final Result [facility] [address] [facility] Department [place] [address] * XR Hip Right 2 or 3 [...] immediate complication. No acute fracture or dislocation. 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 Degeneration of the bilateral sacroiliac joints. SOFT TISSUES: Unremarkable. OTHER: No significant finding. 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 THIS IS AN ELECTRONICALLY VERIFIED FINAL REPORT 08/25/2024 1:06 PM - Electronically signed by Shamar Harkins M.D. T: Report ID: [id number] Reading Location: [id number] Procedure Note Shamar Harkins DO - 08/25/2024 [...] immediate complication. No acute fracture or dislocation. 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 Degeneration of the bilateral sacroiliac joints. SOFT TISSUES: Unremarkable. OTHER: No significant finding. 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 THIS IS AN ELECTRONICALLY VERIFIED FINAL REPORT 08/25/2024 1:06 PM - Electronically signed by Shamar Harkins M.D. T: Report ID: [id number] Reading Location: [place] [address] Luiza JAMESON IMG XR PROCEDURES Final Re sult * RI AN ELECTIVE ENDOTRACHEAL AIRWAY, RI AN PROCEDURE PLACEHOLDER (08/25/2024 10:36 AM CDT) [...] ur Yellow Yellow Clarity, ur Clear Clear [facility] Specific gravity, ur 1.022 1.003 - 1.030 [facility] pH, urine 7.0 [facility] Comment: Interpretive Data U rine pH is affected by diet, medications, systemic acid-base disturbances, and renal tubular function. pH may affect urinary stone formation. For example, urine pH below 6.0 may help reduce the tendency for calcium phosphate stones and pH greater than 6.0 may reduce the tendency for uric acid stone formation. Source: [facility] Current Interpretive Data was last revised on 2017 Protein, ur ql Negative Negative [facility] Glucose, ur ql Negative Negative [facility] Ketones, ur Trace Negative [facility] Bilirubin, ur Negative Negative [facility] Blood, ur Negative Negative [facility] Urobilinogen, ur 2.0(A) <2.0 mg/dL [facility] Nitrite, ur Negative Negative [facility] Leukocyte esterase, ur Negative Negative [facility] UA reflex comment Reflex conditions for microscopic UA and culture not met. [facility]rine 08/25/2024 6:59 AM CDT 08/25/2024 7:20 AM CDT Gino Amanda MD LAB MICROBIOLOGY - G ENERAL ORDERABLES Final Result [facility] [address] [facility] Department [place] [address] * CT Pelvis WO Contrast (08/24/2024 9:50 PM LUMBER KILN OPERATOR) Anatomical Region Laterality Modality Body N/A Computed Tomogra phy 08/24/2024 10:3 2 PM LUMBER KILN OPERATOR Narrative 08/24/2024 10:35 PM LUMBER KILN OPERATOR EXAM DESCRIPTION: CT PELVIS WO CONTRAST REASON FOR STUDY: Hip trauma, fracture suspected, xray done Patient BIBEMS from [facility] with complaints of fall. EMS reports shortened [...] signed by Sixto MELENDREZ T: Report ID: [id number] Reading Location: [id number] Procedure Note Sixto Hopkins MD - 08/24/2024 EXAM DESCRIPTION: CT PELVIS WO CONTRAST REASON FOR STUDY: Hip trauma, fracture suspected, xray done Patient BIBEMS from [facility] with complaints of fall. EMS reports shortened [...] signed by Sixto MELENDREZ T: Report ID: [id number] Reading Location: [place] [address] PROCEDURES Final Re sult * CT Cervical Spine WO Contrast (08/24/2024 8:18 PM LUMBER KILN OPERATOR) Anatomical Region Laterality Modality Spine N/A Computed Tomogra phy 08/24/2024 8:31 PM LUMBER KILN OPERATOR Narrative 08/24/2024 8:32 PM LUMBER KILN OPERATOR EXAM DESCRIPTION: CT CERVICAL SPINE WO CONTRAST [...] signed by Sixto MELENDREZ T: Report ID: [id number] Reading Location: [id number] Procedure Note Sixto Hopkins MD - 08/24/2024 [...] signed by Sixto MELENDREZ T: Report ID: [id number] Reading Location: [id number] Kellie JAMESON [facility] CT PROCEDURES Final Result * CT Head WO Contrast (08/24/2024 8:18 PM LUMBER KILN OPERATOR) Anatomical Region Laterality Modality Head and Neck N/A Computed Tomogra phy 08/24/2024 8:33 PM LUMBER KILN OPERATOR Narrative 08/24/2024 8:34 PM LUMBER KILN OPERATOR EXAM DESCRIPTION: CT HEAD WO CONTRAST REASON [...] 8:34 PM - Electronically signed by Sixto MELENDREZ T: Report ID: [id number] Reading Location: [place] [address] Procedure Note Sixto Hopkins MD - 08/24/2024 [...] 8:34 PM - Electronically signed by Sixto MELENDREZ T: Report ID: [id number] Reading Location: [place] [address] Kellie Rodriguez GISELL IMG CT PROCEDURES Final Result * Differential, auto (08/24/2024 7:53 PM LUMBER KILN OPERATOR) Pathologist [facility] Neutrophil abs 4.9 1.5 - 6.5 K/cumm Imm gran abs 0.0 0.0 - 0.1 K/cumm [facility] Lymphocyte abs 1.2 0.8 - 3.3 K/cumm [facility] Monocyte abs 0.6 0.2 - 0.8 K/cumm [facility] Eosinophil abs 0.1 0.0 - 0.5 K/cumm [facility] Basophil abs 0.0 0.0 - 0.1 K/cumm [facility] Neutrophil pct 72.7 % [facility] Comment: Interpretive Data Percent cell count reference ranges are not reported, since discordance with absolute values may lead to misinterpretation of CBC data. Current Interpretive Data was last revised on 2017. Imm gran pct 0.4 % [facility] Comment: Interpretive Data Percent cell count reference ranges are not reported, since discordance with absolute values may lead to misinterpretation of CBC data. Current Interpretive Data was last revised on 2017. Lymphocyte pct 17.9 % [facility] Comment: Interpretive Data Percent cell count reference ranges are not reported, since discordance with absolute values may lead to misinterpretation of CBC data. Current Interpretive Data was last revised on 2017. Monocyte pct 8.2 % [facility] Comment: Interpretive Data Percent cell count reference ranges are not reported, since discordance with absolute values may lead to misinterpretation of CBC data. Current Interpretive Data was last revised on 2017. Eosinophil pct 0.7 % [facility] Comment: Interpretive Data Percent cell count reference ranges are not reported, since discordance with absolute values may lead to misinterpretation of CBC data. Current Interpretive Data was last revised on 2017. Basophil pct 0.1 % [facility] Comment: Interpretive Data Percent cell count reference ranges are not reported, since discordance with absolute values may lead to misinterpretation of CBC data. Current Interpretive Data was last revised on 2017. Blood 08/24/2024 7:53 PM LUMBER KILN OPERATOR 08/24/2024 8:00 PM LUMBER KILN OPERATOR Kellie JAMESON LAB BLOOD ORDERABLES Final Resu lt Performing Organization Address City/[facility] Co de Phone Number [facility] [address] [place] [address] * (ABNORMAL) CBC with auto differential (08/24/2024 7:53 PM LUMBER KILN OPERATOR) [facility] WBC 6.8 3.8 - 9.9 K/cumm Hgb 12.8 11.9 - 15.5 g/dL [facility] Hct 38.9 35.6 - 45.5 % [facility] Plt 138(L) 150 - 400 K/cumm [facility] MPV 11.9 9.1 - 12.3 fL [facility] RBC 4.39 3.90 - 5.20 M/cumm [facility] MCV 88.6 81.3 - 96.4 fL [facility] MCH 29.2 27.1 - 33.3 pg [facility] MCHC 32.9 32.3 - 35.7 g/dL [facility] RDW CV 13.7 11.1 - 14.9 % [facility] RDW SD 44.6 35.7 - 48.1 fL [facility] NRBC abs 0.00 0.00 - 0.01 K/cumm [facility] Blood 08/24/2024 7:53 PM LUMBER KILN OPERATOR 08/24/2024 8:00 PM LUMBER KILN OPERATOR Kellie JAMESON LAB BLOOD ORDERABLES Final Resu lt Performing Organization Address [facility]/ZIP Co de Phone Number [facility] [address] [place] [address] * XR Hip Right 2 or 3 Views (08/24/2024 7:52 PM LUMBER KILN OPERATOR) Anatomical Region Laterality Modality Lower Extremities, Hip, Pelvis Right C omputed Radiography 08/24/2024 8:30 PM LUMBER KILN OPERATOR Narrative 08/24/2024 8:31 PM LUMBER KILN OPERATOR EXAM DESCRIPTION: XR HIP RIGHT 2 OR 3 VIEWS REASON FOR STUDY: trauma, concern for fracture Patient BIBEMS from [facility] with complaints of fall. EMS reports shortened [...] signed by Sixto MELENDREZ T: Report ID: [id number] Reading Location: [id number] Procedure Note Sixto Hopkins MD - 08/24/2024 EXAM DESCRIPTION: XR HIP RIGHT 2 OR 3 VIEWS REASON FOR STUDY: trauma, concern for fracture Patient BIBEMS from [facility] with complaints of fall. EMS reports shortened [...] signed by Sixto MELENDREZ T: Report ID: [id number] Reading Location: [id number] us Kellie JAMESON IMG XR PROCEDURES Final Result * eGFR (08/24/2024 7:24 PM LUMBER KILN OPERATOR) eGFR 62 >=60 mL/min/1. 73 m2 Comment: [...] last reviewed 2021. Blood 08/24/2024 7:24 PM LUMBER KILN OPERATOR 08/24/2024 7:25 PM LUMBER KILN OPERATOR us Kellie JAMESON LAB BLOOD ORDERABLES Final Resu lt [facility] [address] [facility] Department [place] [address] * Comprehensive metabolic panel (08/24/2024 7:24 PM LUMBER KILN OPERATOR) Sodium 141 135 - 145 mmol/L Potassium, pl 4.5 3.3 - 4.9 mmol/L [facility] Comment:Hemolyzed; Potassium value may be falsely elevated by as much as 1.0 mmol/L. Suggest redraw and reanalysis. Chloride 104 97 - 110 mmol/L [facility] CO2 27 22 - 32 mmol/L [facility] Anion gap 10 2 - 15 mmol/L [facility] BUN 16 6 - 25 mg/dL [facility] Creatinine 0.91 0.60 - 1.10 mg/dL [facility] Glucose 158 70 - 199 mg/dL [facility] Comment: Interpretive Data Fasting glucose >/= 126 [...] 2022. Calcium 10.0 8.5 - 10.3 mg/dL [facility] Bilirubin, total 1.0 0.1 - 1.2 mg/dL [facility] Protein, pl 7.8 6.5 - 8.5 g/dL [facility] Albumin 4.4 3.5 - 5.0 g/dL [facility] Alk phos 79 40 - 130 Units/L [facility] ALT 32 7 - 45 Units/L [facility] AST See Comment 10 - 45 [facility] Comment:Credited; Hemolyzed Specimen Blood 08/24/2024 7:24 PM LUMBER KILN OPERATOR 08/24/2024 7:25 PM LUMBER KILN OPERATOR us Kellie JAMESON LAB BLOOD ORDERABLES Final Resu lt Performing Organization Address City/State/[facility] Co de Phone Number [facility] [address] [facility] Department [place] [address] from Last 3 Months [place] [address] [place] [id number] [address] SENIOR SUPPLEMENT MEDICARE MEDICARE [employer] SENIOR SUPPLEMENT Advance Directives For more information, please contact: [phone] Documents on File Type Date Recorded 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 Use antibiotics, IV Fluids, and medical treatment unless specifically selected below: No intubation Care Teams Tools Developer Relationship Specialty Start Date End Date Lukas Herrera MD [address] [place] [address] PCP - General Internal Medicine 09/23/24 Luiza Gibbs PA [address] [facility] [address] [address] Orthopedic Surgery 08/27/24
[2024-11-14 21:42] LABS: Basophils Percent Auto 0.4 % (0.2-1.2); Eosinophils Absolute Auto 0.2 K/mm3 (0-0.3); Eosinophils Percent Auto 3.1 % (0-4.4); Hematocrit 39.8 % (37.0-47.0); Hemoglobin 12.6 g/dL (12.0-15.0); Immature Granulocyte Absolute 0.02 K/mm3 (0.00-0.031); Immature Granulocyte Percent A 0.4 % (0-0.5); Lymphocytes Absolute Auto 0.95 K/mm3 (0.9-3.2); Lymphocytes Percent Auto 17.2 % (18.3-44.2); Mean Corpuscular HGB Conc 31.7 g/dl (32-36); Mean Corpuscular Hemoglobin 29.6 pg (26-34); Mean Corpuscular Volume 93.6 fl (80-100); Mean Platelet Volume 11.1 fl (7.4-10.4); Monocytes Absolute Auto 0.4 K/mm3 (0.1-0.6); Monocytes Percent Auto 6.9 % (2.6-8.5); Platelet Count Result 210 k/mm3 (150-375); Red Blood Count 4.25 M/mm3 (4.2-5.4); Red Cell Distribution Width 13.8 % (11.5-14.5); White Blood Count 5.5 K/mm3 (4.5-10.0)
--- NOTE | 2024-11-14 21:46 | ED_ITS ---
HPI - Abdominal Pain General Chief Complaint: Abdominal Pain <SHAI Whittington Last Filed: 11/15/24 16:58> Stated Complaint: abd pain/not feeling well/pale <SHAI Whittington Last Filed: 11/15/24 16:58> Time Seen by Provider: 11/14/24 21:24 <SHAI Whittington Last Filed: 11/15/24 16:58> Source: patient <SHAI Whittington Last Filed: 11/15/24 16:58> Mode of arrival: EMS <SHAI Whittington Filed: 11/15/24 16:58> Limitations: dementia <SHAI Whittington Last Filed: 11/15/24 16:58> History of Present Illness HPI narrative: Patient is an 84 y/o female, with PMH of HTN, hypothyroidism, who presents to the ED via EMS with report of ABD pain. Patient is a resident of [facility]. Per EMS report, staff called out for EMS today due to patient not feeling well, complaining of abdominal pain. Staff reported that patient is typically A&O x4, A&O x1 currently. Patient unable to voice concerns to me. Per EMS, patient was placed on 4 L nasal cannula by EMS as they were unable to obtain an accurate pulse oximetry. No previous oxygen requirement that skilled nursing was aware of. Patient was noted to be hypoxic down to 86% here in the ED. <SHAI Whittington Last Filed: 11/15/24 16:58> Related Data Home Medications: Home Medications ?Medication ?Instructions ?Recorded ?Confirmed ?Last Taken ?Type No Home Medications 11/15/24 11/15/24 Unknown History <SHAI Whittington Last Filed: 11/15/24 16:58> Allergies/Adverse Reactions: Allergies Allergy/AdvReac Type Severity Reaction Status Date / Time codeine Allergy Unconscious Verified 03/07/22 03:55 <SHAI Whittington Last Filed: 11/15/24 16:58> Review of Systems 2 Review of Systems: All systems reviewed & are unremarkable except as noted in HPI. <Gisele Lama PA-C - Last Filed: 11/15/24 16:58> All systems reviewed & are unremarkable except as noted in HPI and below < Gisele Lama PA-C - Last Filed: 11/15/24 16:58> FORMERLY [facility], [facility] Past Medical History Medical History: Medical History Hypothyroidism Hyperlipidemia Hypertension <Gisele Lama PA-C - Last Filed: 11/15/24 16:58> Surgical History Surgical History: Surgical History History of hysterectomy History of left knee replacement <Gisele Lama PA-C - Last Filed: 11/15/24 16:58> Family History Family History: Family History Sibling Cancer Father Cancer Mother Dementia <Gisele Lama PA-C - Last Filed: 11/15/24 16:58> Social History Social History: Social History Social History: The patient lives in her own home in [place]. She ambulates unassisted. 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 Lifelong nonsmoker. No alcohol or illicit substance abuse. She designates her daughter, Queta Baxter, as her surrogate decision maker and she wishes to be a full code. Spiritual care concerns: No <Gisele Lama PA-C - Last Filed: 11/15/24 16:58> Exam 2 Narrative: GENERAL: Elderly, frail/thin, non-toxic, in no acute distress. HEAD: Normocephalic, atraumatic. RESPIRATORY: Airway patent, respirations nonlabored. Clear to auscultation bilaterally, no rales, rhonchi, wheezing. No focal lung sounds. CARDIOVASCULAR: Regular rate and rhythm without murmurs, rubs, or gallops. ABDOMINAL: Soft, no appreciable tenderness, nondistended. Normoactive BS. MUSCULOSKELETAL: Moves all extremities. No gross deformities. SKIN: Warm, dry, normal color. NEURO: Alert, knows her name, thinks it is 2027. Confused with questioning, able to follow some commands. Speech clear. No ataxic movements. Moves all extremities equally. No appreciable focal deficits. PSYCHIATRIC: Appropriate mood and affect. Normal interaction. <Gisele Lama PA-C - Last Filed: 11/15/24 16:58> Procedures Other Procedure Procedure 1: Other Procedure: Procedure: Needle decompression Indication: Tension pneumothorax Procedure note: Patient has what appears to be a tension pneumothorax based on CT imaging showing a very large radha thorax with hemopneumothorax and mediastinal shift of contents to the right side as well as hypoxia. Consent was granted by power of attorneys and family members at bedside as the patient cannot make medical decisions. Patient is DNR, DNI and family does not wish for any aggressive surgical intervention such as a chest tube but were okay with needle aspiration and decompression given patient's emergent circumstances and concern for cardiac arrest if not performed emergently. Consent granted verbally. Patient was supine and given 50 mcg of fentanyl, 2 mg of Versed for pretreatment and anxiety lysis and pain control. 14 gauge angiocatheter was inserted into the left anterior midclavicular line 2nd rib space with colón of air an aspiration of significant amounts of air without any blood. Manual suction through the Angiocath with syringe for decompression of pneumothorax with postprocedural chest x-ray showing significant improvement but no complete resolution as expected as we do not have definitive control with chest tube. Family members declined chest tube or finger thoracostomy and would like to stop procedures at this time now that she is stable. <Tristen Fang MD - Last Filed: 11/15/24 05:05> Course MANAGER TREASURY/PA Physician Supervision This visit was performed by both a physician and an APC. I performed all aspects of the MDM as documented as well as the procedures in the above note. Patient presents after multiple falls and cognitive and physical decline over last few months with resulting multiple rib fractures on the left side, pneumothorax, hemothorax, tension pneumothorax physiology on exam with hypoxia and worsening respiratory status. Patient's family declined any chest tube or invasive procedure poor okay with needle decompression in the emergency circumstances of imminent decompensation which was performed at bedside with immediate colón of air and improvement. Chest tube again discussed and declined by family. Patient was transitioned to hospice level of care and hospice company has come to evaluate the patient at bedside for inpatient hospice transition at this time. Patient's family has agreed for inpatient hospice, morphine drip was initiated for pain control and comfort care. Admission orders placed family's questions were answered. <Tristen Fang MD - Last Filed: 11/15/24 05:05> Vital Signs Vital signs: Vital Signs Temperature 97.6 F 11/14/24 21:02 Pulse Rate 96 11/14/24 21:02 Respiratory Rate 19 11/14/24 21:02 Blood Pressure 115/67 11/14/24 21:02 Pulse Oximetry 93 11/14/24 21:02 Oxygen Delivery Room Air 11/14/24 21:02 Temperature 97.6 F 11/14/24 21:02 Pulse Rate 98 11/15/24 05:03 Respiratory Rate 19 11/15/24 05:03 Blood Pressure 163/67 H 11/15/24 05:03 Pulse Oximetry 99 11/15/24 05:03 Oxygen Delivery Non-Rebreather Mask 11/15/24 01:02 Oxygen Flow Rate 15 11/15/24 01:02 <Gisele Lama PA-C - Last Filed: 11/15/24 16:58> Vital Signs Temperature 97.6 F 11/14/24 21:02 Pulse Rate 96 11/14/24 21:02 Respiratory Rate 19 11/14/24 21:02 Blood Pressure 115/67 11/14/24 21:02 Pulse Oximetry 93 11/14/24 21:02 Oxygen Delivery Room Air 11/14/24 21:02 Temperature 97.6 F 11/14/24 21:02 Pulse Rate 98 11/15/24 05:03 Respiratory Rate 19 11/15/24 05:03 Blood Pressure 163/67 H 11/15/24 05:03 Pulse Oximetry 99 11/15/24 05:03 Oxygen Delivery Non-Rebreather Mask 11/15/24 01:02 Oxygen Flow Rate 15 11/15/24 01:02 <Tristen Fang MD - Last Filed: 11/15/24 05:05> MDM - Abdominal Pain MDM Narrative Medical decision making narrative: Patient presented to ED from local skilled nursing facility with concern for altered mental status, abdominal pain. Patient was noted to be hypoxic per EMS. EMS stated that the skilled nursing did not have any paperwork on this patient. No known previous oxygen requirement. She was hypoxic here down to 86% on room air. Placed back on 2 L nasal cannula. Patient unable to provide much information. History of dementia. ABG without CO2 retention. Normal pH. Oxygen sat 95 on 2 L. Cbc without leukocytosis. Stable H&H. CMP is unremarkable. Stable electrolytes. Stable kidney function. EKG with sinus rhythm, no significant concerning ischemic changes. Troponin is undetectable. BNP within normal range for age. UA without signs of infection. Does show trace amount of RBC. This was obtained via straight catheterization. Family does mention that she has recently been on antibiotics for a urinary tract infection. I do see cefdinir and patient's med rec. No recent urine culture here to compare to. Viral swabs negative. CT brain negative. CT of chest/abdomen/pelvis was obtained and unfortunately showing L sided PTX/MATEUSZ approx 70% with atelectasis changes, multiple left-sided rib fractures, 02/26/11. Also showing R sided pulmonary emboli. Patient transitioned to NRB at 15% Discussed imaging findings with patient's family at bedside (son/POA and daughter). Family reports that patient has had numerous falls recently. States she falls almost every day, often at night as she will try to get out of her bed or wheelchair on her own. Son did report that patient was complaining of pain to her left-sided abdomen a few days ago and he noted some bruising at that time. He also notes that patient sustained a hip/pelvic fracture around 3 months ago and underwent surgery for this at [facility]. Has had a fairly significant decline since then. Patient is a DNR/DNI. After discussion with family, they do not want to proceed with any invasive procedures to treat the hemothorax/pneumothorax. They would like to keep the patient comfortable and do not want to proceed with chest tube given the pain related to the procedure, and they do not believe patient would tolerate procedure well afterwards w/o becoming agitated and trying to remove tube herself. Discussed risks of performing versus foregoing chest tube extensively with family. Advised if we do forego chest tube, PTX will likely to worsen, potentially leading to tension pneumo and imminent . Son has discussed situation with other family members and they are all in agreement with avoiding chest tube/invasive procedures. They are amenable to needle aspiration, which they understand is only a temporizing measure. This was performed by Dr. Fang at bedside using 14g needle. Repeat CXR after procedure showed slight improvement of PTX volume. Patient is remaining stable on NRB, O2 95-97%. Patient will be transitioned to hospice/comfort care. Family is in agreement with this. [facility] was notified and will come to evaluate patient in the ED. <Gisele Lama PA-C - Last Filed: 11/15/24 16:58> Patient presented to ED from local skilled nursing facility with concern for altered mental status, abdominal pain. Patient was noted to be hypoxic per EMS. EMS stated that the skilled nursing did not have any paperwork on this patient. No known previous oxygen requirement. She was hypoxic here down to 86% on room air. Placed back on 2 L nasal cannula. Patient unable to provide much information. History of dementia. ABG without CO2 retention. Normal pH. Oxygen sat 95 on 2 L. Cbc without leukocytosis. Stable H&H. CMP is unremarkable. Stable electrolytes. Stable kidney function. EKG with sinus rhythm, no significant concerning ischemic changes. Troponin is undetectable. BNP within normal range for age. UA without signs of infection. Does show trace amount of RBC. This was obtained via straight catheterization. Family does mention that she has recently been on antibiotics for a urinary tract infection. I do see cefdinir and patient's med rec. No recent urine culture here to compare to. Viral swabs negative. CT brain negative. CT of chest/abdomen/pelvis was obtained and unfortunately showing L sided PTX/MATEUSZ approx 70% with atelectasis changes, multiple left-sided rib fractures, 02/26/11. Also showing R sided pulmonary emboli. Patient transitioned to NRB at 15% Discussed imaging findings with patient's family at bedside (son/POA and daughter). Family reports that patient has had numerous falls recently. States she falls almost every day, often at night as she will try to get out of her bed or wheelchair on her own. Son did report that patient was complaining of pain to her left-sided abdomen a few days ago and he noted some bruising at that time. He also notes that patient sustained a hip/pelvic fracture around 3 months ago and underwent surgery for this at [facility]. Has had a fairly significant decline since then. Patient is a DNR/DNI. After discussion with family, they do not want to proceed with any invasive procedures to treat the hemothorax/pneumothorax. They would like to keep the patient comfortable and do not want to proceed with chest tube given the pain related to the procedure, and they do not believe patient would tolerate procedure well afterwards w/o becoming agitated and trying to remove tube herself. Discussed risks of performing versus foregoing chest tube extensively with family. Advised if we do forego chest tube, PTX will likely to worsen, potentially leading to tension pneumo and imminent . Son has discussed situation with other family members and they are all in agreement with avoiding chest tube/invasive procedures. They are amenable to needle aspiration, which they understand is only a temporizing measure. This was performed by Dr. Fang at bedside using 14g needle. Repeat CXR after procedure showed slight improvement of PTX volume. Patient is remaining stable on NRB, O2 95-97%. Patient will be transitioned to hospice/comfort care. Family is in agreement with this. [facility] was notified and will come to evaluate patient in the ED. <Tristen Fang MD - Last Filed: 11/15/24 05:05> Medical Records Attestation: I reviewed the patient's medical records. <Gisele Lama PA-C - Last Filed: 11/15/24 16:58> Lab Data Attestation: I reviewed the patient's lab results. <Gisele Lama PA-C - Last Filed: 11/15/24 16:58> Result diagrams: 11/14/24 21:34 11/14/24 21:34 <Gisele Lama PA-C - Last Filed: 11/15/24 16:58> Labs: Lab Results 11/14/24 11/14/24 11/14/24 Range/Units 21:34 21:53 22:11 WBC 5.5 (4.5-10.0) K/mm3 RBC 4.25 (4.2-5.4) M/mm3 Hgb 12.6 (12.0-15.0) g/dL Hct 39.8 (37.0-47.0) % MCV 93.6 (80-100) fl MCH 29.6 (26-34) pg MCHC 31.7 L (32-36) g/dl RDW 13.8 (11.5-14.5) % Plt Count 210 (150-375) k/mm3 MPV 11.1 H (7.4-10.4) fl Immature Gran % (Auto) 0.4 (0-0.5) % Neut % (Auto) 72.0 (45.5-73.1) % Lymph % (Auto) 17.2 L (18.3-44.2) % [place] % (Auto) 6.9 (2.6-8.5) % Eos % (Auto) 3.1 (0-4.4) % Baso % (Auto) 0.4 (0.2-1.2) % Lymph # (Auto) 0.95 (0.9-3.2) K/mm3 [place] # (Auto) 0.4 (0.1-0.6) K/mm3 Eos # (Auto) 0.2 (0-0.3) K/mm3 Baso # (Auto) 0.0 (0.0-0.1) K/mm3 Abs Immat Gran (auto) 0.02 (0.00-0.031) K/mm3 Absolute Neuts (auto) 4.0 (1.3-6.7) K/mm3 Absolute Nucleated RBC 0.000 (0.0-0.012) K/mm3 Nucleated RBC % 0.0 (0.0-0.2) % PT 14.0 (11.1-14.7) Seconds INR 1.1 APTT 27.8 (22.3-36.8) Seconds Methemoglobin (0-1.5) %THb Sodium 142 (137-145) mmol/L Potassium 3.9 (3.4-5.0) mmol/L Chloride 108 H (98-107) mmol/L Carbon Dioxide 25 (22-30) mmol/L Anion Gap 9 (4-12) mmol/L BUN 34 H D (7-17) mg/dL Creatinine 0.86 (0.7-1.0) mg/dL Estim Creat Clear Calc 35 ml/min Estimated GFR > 60 (59 - ) Glucose 174 H (65-110) mg/dL Calcium 9.7 (8.4-10.2) mg/dL Total Bilirubin 1.0 (0.2-1.3) mg/dL AST 26 (14-36) U/L ALT 16 (6-35) U/L Alkaline Phosphatase 96 (38-126) U/L Troponin I < 0.012 (0.000-0.034) ng/mL NT-Pro-B Natriuret Pep 455 H (19.9-100) pg/mL Total Protein 7.0 (6.3-8.2) g/dL Albumin 3.7 (3.5-5.1) g/dL Lipase 54 (23-300) U/L TSH (Reflex) 11.000 H (0.465-4.68) uIU/mL Free T4 2.54 H (0.78-2.19) ng/dL Urine Color Dark yellow (Yellow) Urine Appearance Turbid H (Clear) Urine pH 5.0 (5.0-9.0) Ur Specific [place] 1.032 (1.001-1.035) Urine Protein 2+ H (Negative) mg/dL Urine Glucose (UA) Negative (Negative) mg/dL Urine Ketones Trace H (Negative) mg/dL Ur Blood (Man) Negative (Negative) Urine Nitrate Negative (Negative) Urine Bilirubin Negative (Negative) Urine Urobilinogen 1.0 (<2.0) mg/dL Add Ur Microanalysis Reviewed Leukocyte Esterase Rfl Trace H (Negative) MARIA DOLORES/UL Urine RBC 11-20 H (0-2) /hpf Urine WBC 0-5 (0-3) /hpf Ur Squamous Epith Cells Many H (Few) /hpf Urine Bacteria None seen /hpf Urine Casts >20 Hyaline Casts Present (None) /lpf Influenza A (RT-PCR) Negative (Negative) Influenza B (RT-PCR) Negative (Negative) RSV (RT-PCR) Negative (Negative) SARS-CoV-2 RNA (RT-PCR) Negative (Negative) 11/14/24 Range/Units 22:14 WBC (4.5-10.0) K/mm3 RBC (4.2-5.4) M/mm3 Hgb (12.0-15.0) g/dL Hct (37.0-47.0) % MCV (80-100) fl MCH (26-34) pg MCHC (32-36) g/dl RDW (11.5-14.5) % Plt Count (150-375) k/mm3 MPV (7.4-10.4) fl Immature Gran % (Auto) (0-0.5) % Neut % (Auto) (45.5-73.1) % Lymph % (Auto) (18.3-44.2) % [place] % (Auto) (2.6-8.5) % Eos % (Auto) (0-4.4) % Baso % (Auto) (0.2-1.2) % Lymph # (Auto) (0.9-3.2) K/mm3 [place] # (Auto) (0.1-0.6) K/mm3 Eos # (Auto) (0-0.3) K/mm3 Baso # (Auto) (0.0-0.1) K/mm3 Abs Immat Gran (auto) (0.00-0.031) K/mm3 Absolute Neuts (auto) (1.3-6.7) K/mm3 Absolute Nucleated RBC (0.0-0.012) K/mm3 Nucleated RBC % (0.0-0.2) % PT (11.1-14.7) Seconds INR APTT (22.3-36.8) Seconds Methemoglobin 0.1 (0-1.5) %THb Sodium (137-145) mmol/L Potassium (3.4-5.0) mmol/L Chloride (98-107) mmol/L Carbon Dioxide (22-30) mmol/L Anion Gap (4-12) mmol/L BUN (7-17) mg/dL Creatinine (0.7-1.0) mg/dL Estim Creat Clear Calc ml/min Estimated GFR (59 - ) Glucose (65-110) mg/dL Calcium (8.4-10.2) mg/dL Total Bilirubin (0.2-1.3) mg/dL AST (14-36) U/L ALT (6-35) U/L Alkaline Phosphatase (38-126) U/L Troponin I (0.000-0.034) ng/mL NT-Pro-B Natriuret Pep (19.9-100) pg/mL Total Protein (6.3-8.2) g/dL Albumin (3.5-5.1) g/dL Lipase (23-300) U/L TSH (Reflex) (0.465-4.68) uIU/mL Free T4 (0.78-2.19) ng/dL Urine Color (Yellow) Urine Appearance (Clear) Urine pH (5.0-9.0) Ur Specific [place] (1.001-1.035) Urine Protein (Negative) mg/dL Urine Glucose (UA) (Negative) mg/dL Urine Ketones (Negative) mg/dL Ur Blood (Man) (Negative) Urine Nitrate (Negative) Urine Bilirubin (Negative) Urine Urobilinogen (<2.0) mg/dL Add Ur Microanalysis Leukocyte Esterase Rfl (Negative) MARIA DOLORES/UL Urine RBC (0-2) /hpf Urine WBC (0-3) /hpf Ur Squamous Epith Cells (Few) /hpf Urine Bacteria /hpf Urine Casts Hyaline Casts (None) /lpf Influenza A (RT-PCR) (Negative) Influenza B (RT-PCR) (Negative) RSV (RT-PCR) (Negative) SARS-CoV-2 RNA (RT-PCR) (Negative) <Gisele Lama PA-C - Last Filed: 11/15/24 16:58> Lab Results 11/14/24 11/14/24 11/14/24 Range/Units 21:34 21:53 22:11 WBC 5.5 (4.5-10.0) K/mm3 RBC 4.25 (4.2-5.4) M/mm3 Hgb 12.6 (12.0-15.0) g/dL Hct 39.8 (37.0-47.0) % MCV 93.6 (80-100) fl MCH 29.6 (26-34) pg MCHC 31.7 L (32-36) g/dl RDW 13.8 (11.5-14.5) % Plt Count 210 (150-375) k/mm3 MPV 11.1 H (7.4-10.4) fl Immature Gran % (Auto) 0.4 (0-0.5) % Neut % (Auto) 72.0 (45.5-73.1) % Lymph % (Auto) 17.2 L (18.3-44.2) % [place] % (Auto) 6.9 (2.6-8.5) % Eos % (Auto) 3.1 (0-4.4) % Baso % (Auto) 0.4 (0.2-1.2) % Lymph # (Auto) 0.95 (0.9-3.2) K/mm3 [place] # (Auto) 0.4 (0.1-0.6) K/mm3 Eos # (Auto) 0.2 (0-0.3) K/mm3 Baso # (Auto) 0.0 (0.0-0.1) K/mm3 Abs Immat Gran (auto) 0.02 (0.00-0.031) K/mm3 Absolute Neuts (auto) 4.0 (1.3-6.7) K/mm3 Absolute Nucleated RBC 0.000 (0.0-0.012) K/mm3 Nucleated RBC % 0.0 (0.0-0.2) % PT 14.0 (11.1-14.7) Seconds INR 1.1 APTT 27.8 (22.3-36.8) Seconds Methemoglobin (0-1.5) %THb Sodium 142 (137-145) mmol/L Potassium 3.9 (3.4-5.0) mmol/L Chloride 108 H (98-107) mmol/L Carbon Dioxide 25 (22-30) mmol/L Anion Gap 9 (4-12) mmol/L BUN 34 H D (7-17) mg/dL Creatinine 0.86 (0.7-1.0) mg/dL Estim Creat Clear Calc 35 ml/min Estimated GFR > 60 (59 - ) Glucose 174 H (65-110) mg/dL Calcium 9.7 (8.4-10.2) mg/dL Total Bilirubin 1.0 (0.2-1.3) mg/dL AST 26 (14-36) U/L ALT 16 (6-35) U/L Alkaline Phosphatase 96 (38-126) U/L Troponin I < 0.012 (0.000-0.034) ng/mL NT-Pro-B Natriuret Pep 455 H (19.9-100) pg/mL Total Protein 7.0 (6.3-8.2) g/dL Albumin 3.7 (3.5-5.1) g/dL Lipase 54 (23-300) U/L TSH (Reflex) 11.000 H (0.465-4.68) uIU/mL Free T4 2.54 H (0.78-2.19) ng/dL Urine Color Dark yellow (Yellow) Urine Appearance Turbid H (Clear) Urine pH 5.0 (5.0-9.0) Ur Specific [place] 1.032 (1.001-1.035) Urine Protein 2+ H (Negative) mg/dL Urine Glucose (UA) Negative (Negative) mg/dL Urine Ketones Trace H (Negative) mg/dL Ur Blood (Man) Negative (Negative) Urine Nitrate Negative (Negative) Urine Bilirubin Negative (Negative) Urine Urobilinogen 1.0 (<2.0) mg/dL Add Ur Microanalysis Reviewed Leukocyte Esterase Rfl Trace H (Negative) MARIA DOLORES/UL Urine RBC 11-20 H (0-2) /hpf Urine WBC 0-5 (0-3) /hpf Ur Squamous Epith Cells Many H (Few) /hpf Urine Bacteria None seen /hpf Urine Casts >20 Hyaline Casts Present (None) /lpf Influenza A (RT-PCR) Negative (Negative) Influenza B (RT-PCR) Negative (Negative) RSV (RT-PCR) Negative (Negative) SARS-CoV-2 RNA (RT-PCR) Negative (Negative) 11/14/24 Range/Units 22:14 WBC (4.5-10.0) K/mm3 RBC (4.2-5.4) M/mm3 Hgb (12.0-15.0) g/dL Hct (37.0-47.0) % MCV (80-100) fl MCH (26-34) pg MCHC (32-36) g/dl RDW (11.5-14.5) % Plt Count (150-375) k/mm3 MPV (7.4-10.4) fl Immature Gran % (Auto) (0-0.5) % Neut % (Auto) (45.5-73.1) % Lymph % (Auto) (18.3-44.2) % [place] % (Auto) (2.6-8.5) % Eos % (Auto) (0-4.4) % Baso % (Auto) (0.2-1.2) % Lymph # (Auto) (0.9-3.2) K/mm3 [place] # (Auto) (0.1-0.6) K/mm3 Eos # (Auto) (0-0.3) K/mm3 Baso # (Auto) (0.0-0.1) K/mm3 Abs Immat Gran (auto) (0.00-0.031) K/mm3 Absolute Neuts (auto) (1.3-6.7) K/mm3 Absolute Nucleated RBC (0.0-0.012) K/mm3 Nucleated RBC % (0.0-0.2) % PT (11.1-14.7) Seconds INR APTT (22.3-36.8) Seconds Methemoglobin 0.1 (0-1.5) %THb Sodium (137-145) mmol/L Potassium (3.4-5.0) mmol/L Chloride (98-107) mmol/L Carbon Dioxide (22-30) mmol/L Anion Gap (4-12) mmol/L BUN (7-17) mg/dL Creatinine (0.7-1.0) mg/dL Estim Creat Clear Calc ml/min Estimated GFR (59 - ) Glucose (65-110) mg/dL Calcium (8.4-10.2) mg/dL Total Bilirubin (0.2-1.3) mg/dL AST (14-36) U/L ALT (6-35) U/L Alkaline Phosphatase (38-126) U/L Troponin I (0.000-0.034) ng/mL NT-Pro-B Natriuret Pep (19.9-100) pg/mL Total Protein (6.3-8.2) g/dL Albumin (3.5-5.1) g/dL Lipase (23-300) U/L TSH (Reflex) (0.465-4.68) uIU/mL Free T4 (0.78-2.19) ng/dL Urine Color (Yellow) Urine Appearance (Clear) Urine pH (5.0-9.0) Ur Specific [place] (1.001-1.035) Urine Protein (Negative) mg/dL Urine Glucose (UA) (Negative) mg/dL Urine Ketones (Negative) mg/dL Ur Blood (Man) (Negative) Urine Nitrate (Negative) Urine Bilirubin (Negative) Urine Urobilinogen (<2.0) mg/dL Add Ur Microanalysis Leukocyte Esterase Rfl (Negative) MARIA DOLORES/UL Urine RBC (0-2) /hpf Urine WBC (0-3) /hpf Ur Squamous Epith Cells (Few) /hpf Urine Bacteria /hpf Urine Casts Hyaline Casts (None) /lpf Influenza A (RT-PCR) (Negative) Influenza B (RT-PCR) (Negative) RSV (RT-PCR) (Negative) SARS-CoV-2 RNA (RT-PCR) (Negative) <Tristen Fang MD - Last Filed: 11/15/24 05:05> ABG Data ABG results: 11/14/24 22:14 Puncture Site Left radial ABG pH 7.411 ABG pCO2 39.4 ABG pO2 79.3 L ABG PO2/FiO2 Ratio 2.83 ABG HCO3 24.5 ABG O2 Saturation 95.9 ABG O2 Content 15.7 L ABG Base Excess -0.1 A-a Gradient 73.9 Oxyhemoglobin 95.1 Carboxyhemoglobin 0.4 Reduced Hemoglobin 4.4 Total Hemoglobin 11.7 L O2 Delivery Device Nasal cannula O2 Liters/Min 2.0 FiO2 28 <Gisele Lama PA-C - Last Filed: 11/15/24 16:58> 11/14/24 22:14 Puncture Site Left radial ABG pH 7.411 ABG pCO2 39.4 ABG pO2 79.3 L ABG PO2/FiO2 Ratio 2.83 ABG HCO3 24.5 ABG O2 Saturation 95.9 ABG O2 Content 15.7 L ABG Base Excess -0.1 A-a Gradient 73.9 Oxyhemoglobin 95.1 Carboxyhemoglobin 0.4 Reduced Hemoglobin 4.4 Total Hemoglobin 11.7 L O2 Delivery Device Nasal cannula O2 Liters/Min 2.0 FiO2 28 <Tristen Fang MD - Last Filed: 11/15/24 05:05> Imaging Data Attestation: I personally reviewed and interpreted this imaging study as follows: < Gisele Lama PA-C - Last Filed: 11/15/24 16:58> Radiologist's impression: ITS Impressions Head CT 11/14/24 23:30 IMPRESSION: No acute intracranial findings. Chest/Abdomen/Pelvis CT 11/14/24 23:36 IMPRESSION: CHEST: 1. Left large pneumothorax of about 70%. Multiple rib fractures involving the left ninth, 10th and 11th ribs with deformity. 2. Left lower lobe atelectasis with left hemothorax. 3. Right lower lobe segmental and subsegmental pulmonary embolism. 4. Foreign body seen in the left hemithorax area below the ribs.a bullet should be considered. ABDOMEN/PELVIS: 1. No evidence of acute abdominal process. 2. Minimal dilatation of the biliary tree. 3. Bilateral renal cysts. Physician: Gisele Lama PA-C Was notified with the result of the patient at 11:50 PM on on November 14, 2024. Chest X-Ray 11/15/24 05:13 Impression: Large left pneumothorax is increased from prior exam. Stable fractures of the left ninth and 10th ribs. <Gisele Lama PA-C - Last Filed: 11/15/24 16:58> ITS Impressions Head CT 11/14/24 23:30 IMPRESSION: No acute intracranial findings. Chest/Abdomen/Pelvis CT 11/14/24 23:36 IMPRESSION: CHEST: 1. Left large pneumothorax of about 70%. Multiple rib fractures involving the left ninth, 10th and 11th ribs with deformity. 2. Left lower lobe atelectasis with left hemothorax. 3. Right lower lobe segmental and subsegmental pulmonary embolism. 4. Foreign body seen in the left hemithorax area below the ribs.a bullet should be considered. ABDOMEN/PELVIS: 1. No evidence of acute abdominal process. 2. Minimal dilatation of the biliary tree. 3. Bilateral renal cysts. Physician: Gisele Lama PA-C Was notified with the result of the patient at 11:50 PM on on November 14, 2024. Chest X-Ray 11/15/24 05:13 Impression: Large left pneumothorax is increased from prior exam. Stable fractures of the left ninth and 10th ribs. <Tristen Fang MD - Last Filed: 11/15/24 05:05> ECG Data EKG #1: Attestation: I personally reviewed and interpreted this ECG as follows: <Gisele Lama PA-C - Last Filed: 11/15/24 16:58> ECG completion date: 11/14/24 <SHAI Whittington Last Filed: 11/15/24 16:58> ECG completion time: 21:56 <Gisele Lama PA-C - Last Filed: 11/15/24 16:58> normal rate (87), sinus rhythm, PVCs and non-specific ST changes < Gisele Lama PA-C - Last Filed: 11/15/24 16:58> Critical Care Time Critical Care Time Critical Care Time: Yes <Tristen Fang MD - Last Filed: 11/15/24 05:05> Total Critical Care Time: 75 <Tristen Fang MD - Last Filed: 11/15/24 05:05> Discharge Plan Discharge Clinical Impression: Fracture of multiple ribs of left side, Hemothorax on left, Pneumothorax on left, Pulmonary emboli, Tension pneumothorax, Admission for hospice care, Critical polytrauma <Gisele Lama PA-C - Last Filed: 11/15/24 16:58> Patient Disposition: [facility] <Gisele Lama PA-C - Last Filed: 11/15/24 16:58> Condition: Terminal <Gisele Lama PA-C - Last Filed: 11/15/24 16:58> Patient Language: Bhutanese <Gisele Lama PA-C - Last Filed: 11/15/24 16:58> Prescriptions: No Action No Home Medications <Gisele Lama PA-C - Last Filed: 11/15/24 16:58> Follow-up/Referrals: Javier,Lukas Lee MD [Primary Care Provider] - <SHAI Whittington Last Filed: 11/15/24 16:58> Time of Disposition: 05:05 <Gisele Lama PA-C - Last Filed: 11/15/24 16:58> 05:05 <Tristen Fang MD - Last Filed: 11/15/24 05:05>
[2024-11-14 21:52] LABS: Alanine Aminotransferase 16 U/L (6-35); Albumin Level 3.7 g/dL (3.5-5.1); Alkaline Phosphatase 96 U/L (38-126); Anion Gap 9 mmol/L (4-12); Aspartate Amino Transferase 26 U/L (14-36); Blood Urea Nitrogen 34 mg/dL (7-17); Calcium 9.7 mg/dL (8.4-10.2); Carbon Dioxide 25 mmol/L (22-30); Chloride 108 mmol/L (98-107); Estimated CRCL calculation 35 ml/min; Estimated Glomerular Filt Rate > 60; Glucose 174 mg/dL (65-110); Lipase 54 U/L (23-300); Potassium 3.9 mmol/L (3.4-5.0); Sodium 142 mmol/L (137-145)
[2024-11-14 22:06] VITALS: O2SAT 87; O2SAT 97
[2024-11-14 22:21] LABS: Alveolar/Arterial O2 Gradient 73.9 mmHg; Base Excess ABG -0.1 mEq/l (+/-2.0); Carboxyhemoglobin 0.4 % THb (0-2.0); Fractional Inspired Oxygen 28 %; HCO3 ABG 24.5 mEq/l (22.0-26.0); Methemoglobin ABG 0.1 %THb (0-1.5); Oxygen Content ABG 15.7 %vol (16.0-22.0); Oxygen Saturation ABG 95.9 % (95.0-100.0); Oxyhemoglobin 95.1 % THb (90.0-100.0); PCO2 ABG 39.4 mmHg (35.0-45.0); PO2 ABG 79.3 mmHg (80.0-100.0); PO2 FiO2 Ratio Arterial Blood 2.83 %; Reduced Hemoglobin 4.4 %THb (0-5.0); Total Hemoglobin 11.7 g/dL (12.0-18.0); pH ABG 7.411 (7.350-7.450)
[2024-11-14 22:23] LABS: Device NASAL CANNULA; Modified Allen's Test Pass; Site Drawn LEFT RADIAL
--- NOTE | 2024-11-14 22:38 | PC.NURSE ---
This RN and FRANCOIS Ng have attempted to start an IV on pt twice each and were unsuccessful. fur repairer notified.
[2024-11-14 22:45] LABS: Add Urine Microscopic? YES; Appearance Urine Turbid (Clear); Bacteria Urine None Seen /hpf; Bilirubin Urine Negative (Negative); Blood Urine Negative (Negative); Color Urine Dark Yellow (Yellow); Glucose Urine UA Negative (Negative); Hyaline Casts Urine Present /lpf; Ketones Urine Trace mg/dL (Negative); Leukocyte Esterase Ur Trace LEU/UL (Negative); Need Manual Microscopic Reviewed; Nitrate Urine Negative (Negative); Non Pathogenic Casts >20; Protein Urine 2+ mg/dL (Negative); Specific Grav Ur 1.032 (1.001-1.035); Squamous Epithelial Cell Urine Many /hpf (Few); WBC Urine 0-5 /hpf (0-3)
[2024-11-14 22:47] VITALS: BP 107/54; PULSE 77; RESP 17; O2SAT 93
[2024-11-14 23:06] LABS: NT Pro B Type Natriuretic Pept 455 pg/mL (19.9-100); Troponin I < 0.012 ng/mL (0.000-0.034)
[2024-11-14 23:21] LABS: Influenza A QL RT-PCR Negative (Negative); Influenza B QL RT-PCR Negative (Negative); RSV RNA, RT-PCR Negative (Negative); SARS-CoV-2 RNA PCR Negative (Negative)
[2024-11-14 23:24] LABS: INR 1.1; Partial Thromboplastin Time 27.8 Seconds (22.3-36.8)
[2024-11-14 23:56] VITALS: BP 105/76; PULSE 78; RESP 15; O2SAT 94
[2024-11-15] MEDS: MIDAZOLAM HCL (*CRX) 2 MG/2 ML VIAL IV PUSH (00:45)
[2024-11-15] MEDS: fentaNYL CITRATE INJ (*CRX) 100 MCG/2 ML VIAL 50 MCG IV PUSH (00:45)
[2024-11-15 01:02] VITALS: O2SAT 98
--- NOTE | 2024-11-15 01:05 | PC.NURSE ---
This RN, MD Fang, and GISELL Jaquez were all present at bedside during the procedure performed by MD Fang due to pt imaging results.
[2024-11-15 01:21] VITALS: BP 124/67; PULSE 80; RESP 11; O2SAT 97
[2024-11-15 01:23] LABS: Free T4 Free Thyroxine Reflex 2.54 ng/dL (0.78-2.19)
--- NOTE | 2024-11-15 01:29 | PC.NURSE ---
Marybel was contacted with GISELL Mike. Requesting records to be sent to them.
[2024-11-15 04:54] VITALS: PULSE 99; RESP 17
[2024-11-15] MEDS: MORPHINE 50 MG/NS 100ML (*CRX) 50 MG/100 ML BAG 8 MG IV CONT (04:54)
[2024-11-15 04:57] VITALS: BP 163/67; PULSE 98; RESP 18; O2SAT 99
[2024-11-15 05:03] VITALS: BP 163/67; PULSE 98; RESP 19; O2SAT 99
== END 2024-11-15 05:07 | disposition hospice, inpatient (51) ==
PROVIDERS: Student in an Organized Health Care Education/Training Program; Emergency Provider Physician Assistant; PCP Internal Medicine
DX: S22.42XA Multiple fractures of ribs, left side, initial encounter for closed fracture (principal); J93.0 Spontaneous tension pneumothorax; I26.99 Other pulmonary embolism without acute cor pulmonale; Z51.5 Encounter for palliative care; Z20.822 Contact with and (suspected) exposure to COVID-19; F03.90 Unspecified dementia, unspecified severity, without behavioral disturbance, psychotic disturbance, mood disturbance, and anxiety; I10 Essential (primary) hypertension; E03.9 Hypothyroidism, unspecified; E78.5 Hyperlipidemia, unspecified; Z66 Do not resuscitate; Z96.652 Presence of left artificial knee joint; Z90.710 Acquired absence of both cervix and uterus; N28.1 Cyst of kidney, acquired; I49.1 Atrial premature depolarization; I44.4 Left anterior fascicular block; R94.31 Abnormal electrocardiogram [ECG] [EKG]; W19.XXXA Unspecified fall, initial encounter
CPT/HCPCS: 32554; 36415; 36600; 70450; 71045; 71260; 74177; 80053; 81001; 82375; 82805; 83050; 83690; 83880; 84439; 84443; 84484; 85018; 85025; 85610; 85730; 87637; 93005; 96374; 96375; 99285; J2250; J2270; J3010; Q9967

== ENCOUNTER 2024-11-15 05:08 | HOS | payer OTHER, MEDICARE, SELFPAY ==
--- OUTSIDE RECORDS SUMMARY | 2024-11-15 05:16 | XMS_ITS | Continuity of Care Document ---
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, [address] [place] [address] [address], [place], [place], [id number], tel:[phone] [facility] [place] No Information 8 Lexy Faustin [address] , [address], [place], [address], [place]. tel:[phone] [facility], [address] [place] [address] [address], [place], [place], [id number], tel:[phone] [facility] [place] No Information 8 Lexy Faustin [address] , [address], [place], [address], [place]. tel:[phone] Family History Family Member Type Diagnosis Age At Onset No Information Payers Payer name Insurance type Covered republican ID Authoriza tion(s) [place] [id number] Social History Type Description Quantity Date Captured [...]
--- OUTSIDE RECORDS SUMMARY | 2024-11-15 05:16 | XMS_ITS | CONTINUITY OF CARE DOCUMENT ---
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 Name Role Phone Aamir MILLS, Charo Unavailable Lukas Herrera MD Unavailable Lukas Herrera MD Unavailable PROBLEMS Condition Status Date Provider Notes Esophageal reflux completed - Charo Rutledge MD Other and unspecified hyperlipidemia completed - Charo Rutledge MD HTN essential active ISABEL LEMUS MD Hyperlipidemia active Charo Rutledge MD Palpitations PSVT on holter , nl stress test active Charo Rutledge MD Near Syncope active Charo Rutledge MD Abnormal electrocardiogram active Charo encinas MD Fatigue active Charo Rutledge MD ENCOUNTERS Date Type Provider Location Encounter Diag nosis - In-person encounter Office Visit Charo Rutledge MD [facility] - In-person encounter Office Visit Charo Rutledge MD [facility] Palpitations PSVT on holter , nl stress test - In-person encounter Office Visit Charo Rutledge MD [facility] Esophageal refluxOther and unspecified hyperlipidemiaHyperlipidemiaPalpitations PSVT on holter , nl stress testNear SyncopeAbnormal electrocardiogramFatigue - In-person encounter Office Visit ISABEL LEMUS MD [facility] - In-person encounter Office Visit ISABEL LEMUS MD [facility] - In-person encounter Office Visit ISABEL LEMUS MD [facility] - In-person encounter Office Visit ISABEL LEMUS MD [facility] - In-person encounter Office Visit ISABEL LEMUS MD [facility] - In-person encounter Office Visit ISABEL LEMUS MD [facility] - In-person encounter Office Visit ISABEL LEMUS MD [facility] - In-person encounter Office Visit ISABEL LEMSU MD [facility] - In-person encounter Office Visit ISABEL LEMUS MD [facility] - In-person encounter Office Visit ISABEL LEMUS MD [facility] - In-person encounter Office Visit ISABEL LEMUS MD [facility] HTN essential - In-person encounter Office Visit Karis Mckeon [facility] - In-person encounter Office Visit Karis Mckeon [facility] - In-person encounter Office Visit Karis Mckeon [facility] - In-person encounter Office Visit Karis Mckeon [facility] - In-person encounter Office Visit Karis Mckeon [facility] - In-person encounter Office Visit Karis Mckeon [facility] - In-person encounter Office Visit Brittany Nath [facility] VITAL SIGNS Date Observation Value Provider Body Mass Index (Ratio) 24.53 kg/m2 Gladys Jluio blood pressure, diastolic 86 mm[Hg] Ronda murphy Jorge blood pressure, systolic 187 mm[Hg] Kaur montgomery Jorge pulse rate 81 /min Ameena Jorge weight E&M 152 [lb_av] Ameena Jorge oxygen saturation, oximetry 96 % Ameena Jorge blood pressure, cuff size large An jeffrey Jorge height E&M 66 [in_i] Ameena Jorge Body Mass Index (Ratio) 24.37 kg/m2 Dewey Rutledge MD blood pressure, cuff size regular Ri mariana Bennett blood pressure, diastolic 77 mm[Hg] Ri mariana Bennett blood pressure, systolic 122 mm[Hg] Marcelo chad Bennett oxygen saturation, oximetry 99 % Negrita Bennett respiratory rate E&M 16 /min [facility] BetheaBennett pulse rate 91 /min Negrita hopkins weight E&M 151 [lb_av] Negrita Jack son height E&M 66 [in_i] Negrita hopkins Body Mass Index (Ratio) 24.66 kg/m2 Dewey Rutledge MD blood pressure, diastolic 66 mm[Hg] Ashwini nkLogzahra blood pressure, systolic 127 mm[Hg] Charlene Delacruzogzahra blood pressure, diastolic 66 mm[Hg] St romina Peck blood pressure, systolic 127 mm[Hg] Isaura Peck respiratory rate E&M 16 /min Sola smiley oxygen saturation, oximetry 97 % Sola Peck pulse rate 88 /min Sola Peck weight E&M 152.8 [lb_av] Sola Peck height E&M 66 [in_i] Sola Peck ALLERGIES No Known Drug Allergies HISTORY OF MEDICATION USE Medication Status Instructions Dates Provider Indications Com ments Toprol XL 25 mg tablet extended release 24 hr active Take 1 tablet by mouth once a day Nidia Puga olmesartan 20 mg tablet active Charo Rutledge MD levothyroxine 50 mcg tablet active Charo Rutledge MD atorvastatin 10 mg tablet active Charo Rutledge MD amlodipine 10 mg tablet completed - Charo Rutledge MD Toprol XL 25 mg tablet extended release 24 hr completed TAKE 1 TABLET BY MOUTH EVERY DAY - Nidia Puga Bystolic 10 mg tablet completed 1 tablet once a day - Charo Rutledge MD lisinopril 40 mg tablet completed 1 tablet by mouth twice a day - Charo Rutledge MD Benicar 40 mg tablet completed 1 tablet once a day - Charo Rutledge MD Crestor 20 mg tablet completed 1 tablet once a day - Charo Rutledge MD omeprazole 20 mg capsule,delayed release(DR/EC) completed 1 tablet by mouth twice a day - Charo Rutledge MD SOCIAL HISTORY Date Observation Value Provider social history E&M S moking History: Soniya moran has never smoked. lAma Julio passive cigarette sm fei exposure no Ameenavalentina Patel chewing tobacco use Never Ameena Surinder mak smoking status Never smoker Ameenavalentina Patel social history reviewed E&M revi ewed - no changes required Charo Rutledge MD passive cigarette sm fei exposure no Negrita Bennett chewing tobacco use Never Negrita Bennett smoking status Never smoker Negrita bolivar social history reviewed E&M revi ewed - no changes required Charo Rutledge MD social history E&M S moking History: Soniya moran has never smoked. Charo Rutledge MD social history reviewed E&M revi ewed - no changes required Charo Rutledge MD passive cigarette sm fei exposure no Sola Peck chewing tobacco use Never Sola Da gato smoking status Never smoker Solakarine Peck INSURANCE PROVIDERS Payer name Policy type / Coverage type Lashonda red democrat ID [employer] Other [id number] [place] MEDIC[place] Medicare [id number] ADVANCE DIRECTIVES Name Date DISCUSSED - NO DECISION MADE TREATMENT PLAN Date Name Performer [id number], Charo Rutledge MD [id number], Charo Rutledge MD [id number], Charo Rutledge MD [id number],B, Charo Rutledge MD [id number],B, Charo Rutledge MD [id number],S, Charo Rutledge MD [id number],S, Charo Rutledge MD [id number], Charo Rutledge MD [id number],B, Charo Rutledge MD [id number],S, Charo Rutledge MD [id number], Charo Rutledge MD [id number],B, Charo Rutledge MD [id number],S, Charo Rutledge MD [id number], Charo Rtuledge MD [id number],W, Charo Rutledge MD Telehealth Charo Rutledge MD Telehealth Charo Rutledge MD Telehealth Charo Rutledge MD Telehealth Charo Rutledge MD Telehealth Charo Rutledge MD Cardiology Charo Rutledge MD Cardiology Charo Rutledge MD Cardiology Charo Rutledge MD Cardiology Charo Rutledge MD Cardiology Charo Rutledge MD Cardiology Charo Rutledge MD Cardiology Charo Rutledge MD Cardiology Charo Rutledge MD Cardiology Charo Rutledge MD Cardiology Charo Rutledge MD Date Name Stress Regadenoson Monitor - Telemetry (Mobile Cardiac) HISTORY OF PROCEDURES Procedure Date Procedure Name Provider Procedure Notes S tatus EKG Charo Rutledge MD completed Stress EKG ISABEL LEMUS MD completed Cardiolite, 2 units ISABEL LEMUS MD completed SPECT Images Charo Rutledge MD complet ed
--- OUTSIDE RECORDS SUMMARY | 2024-11-15 05:16 | XMS_ITS | Clinical Summary ---
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 Active metoprolol XL (Toprol XL) [...] for WBAT to continue PT/OT DC to [facility] care [facility] with ortho f/u as scheduled Assessment & Plan (09/20/2024 4:55 PM CDT): S/p hemiarthroplasty dr Coates 08/25 following fall No change in sx today following same level fall Ambulates with gait belt and walker Surgical incision healing as expected Denies pain PRN tylenol available Continue PO doxy per ortho recs OK for WBAT to continue PT/OT DC to [facility] care [facility] pending Assessment & Plan (09/12/2024 2:41 PM CDT): Surgical incision healing as expected Denies pain PRN tylenol available Continue PO doxy per ortho recs OK for WBAT to continue PT/OT Assessment & Plan (09/07/2024 9:08 PM CDT): S/p hemiarthroplasty 08/25 following fall in [facility] Repeat films with appropriate anatomic alignment following [...] 05/02/2024 Assessment & Plan (05/02/2024 7:49 PM DIRECTOR MORTGAGE): Normal exam today, consider getting hearing checked, [...] DC as able Plans to return to [facility] following rehab stay Assessment & Plan (09/03/2024 [...] hygiene Pt well known to me from [facility] and has severe cognitive impairment, at high risk for post operative complications and fall Assessment & Plan (08/29/2024 2:43 PM CDT): Chronic, stable Pt is not agitated Alert to person, not to place or time Baseline Assessment & Plan (07/12/2024 7:26 PM DIRECTOR MORTGAGE): Has adjusted well to [facility] setting Pleasantly confused with no reports of anxiety or agitation Continue sertraline 25 mg daily Monitor weight and nutrition Remote sleep hygiene Okay to DC HS melatonin Assessment & Plan (05/02/2024 7:50 PM DIRECTOR MORTGAGE): Stable on sertraline 25mg daily, continue supportive [...] as she was involved in these in [facility] prior to decline. Check basic labs this week, encourage oral nutrition and hydration, promote sleep hygiene and monitor for falls. Likely would benefit from transition to memory care as condition progresses. Age-related osteoporosis wit hout current pathological fracture 03/08/2024 Assessment & Plan (07/12/2024 7:37 PM DIRECTOR MORTGAGE): Continue alendronate Add calcium supplement with vitamin-D [...] 90 Assessment & Plan (07/12/2024 7:22 PM DIRECTOR MORTGAGE): BP logs reviewed, SBP 110-120 Continue olmesartan [...] daily Assessment & Plan (07/12/2024 7:26 PM DIRECTOR MORTGAGE): Lipid panel stable on atorvastatin 10 mg Ldl 86 Chol 150 Trig 73 Continue for now Plan to DC at subsequent visit given age and frailty Assessment & Plan (03/08/2024 11:51 AM CDT): Continue atorvastatin, check lipid panel with admission labs Resolved Problems Problem Noted Date Diagnosed Date Resolved Date Functional diarrhea 07/12/2024 09/02/19 25 Assessment & Plan (07/12/2024 7:37 PM DIRECTOR MORTGAGE): Describes as in the morning only and feels this is related to HS melatonin, likely unrelated but we will DC HS melatonin for now Check BMP with routine labs Abdominal exam benign Encourage oral hydration Dizziness 02/29/2024 09/07/2024 Assessment & Plan (05/02/2024 7:50 PM DIRECTOR MORTGAGE): Exam is benign, encourage oral hydration, recent labs reassuring, will work up if sx persist Assessment & Plan (03/08/2024 11:50 AM CDT): Vertigo considered given recurrence of sx and improvement with meclizine, ok to continue low dose prn for now; DC dramamine, discussed with son risks Encounters Date Type Department Care Team Description 09/23/2024 Telephone [facility] Post Acute Care [address] [facility] [address] [place] [phone] Kristi Anthony MA 09/19/2024 NH/SNF Visit [facility] Post Acute Care of [address] [phone] Marian aGray NP Closed fracture of right hip, with routine healing, subsequent encounter (Primary Dx); 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 behavioral disturbance, psychotic disturbance, mood disturbance, or anxiety (HCC); Primary hypertension; Syncope and collapse; Mixed hyperlipidemia; Urinary retention 09/17/2024 NH/SNF Visit [facility] [address] [phone] Marian Garay NP Closed fracture of right hip, with routine healing, subsequent encounter (Primary Dx); 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 behavioral disturbance, psychotic disturbance, mood disturbance, or anxiety (HCC); Primary hypertension 09/12/2024 NH/SNF Visit [facility] Care [address] [phone] Marian Garay NP Closed fracture of right hip, with routine healing, subsequent encounter (Primary Dx); 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 behavioral disturbance, psychotic disturbance, mood disturbance, or anxiety (HCC); Transient alteration of awareness 09/11/2024 10:15 AM CDT Office Visit [facility] [address] [place] [phone] Luiza Gibbs PA Status post hip hemiarthroplasty (Primary Dx); Closed fracture of right hip, initial encounter (HCC); Superficial incisional infection of surgical site 09/11/2024 10:14 AM CDT - 09/11/2024 11:59 PM CDT Hospital Encounter [facility] [address] [place] [id number] Closed fracture of right hip, initial encounter (HCC) Discharge Disposition: Discharge to home or self care 09/10/2024 NH/SNF Visit [facility] [address] [phone] Marian Garay NP Status post hip hemiarthroplasty (Primary Dx); 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 behavioral disturbance, psychotic disturbance, mood disturbance, or anxiety (HCC); Primary hypertension 09/03/2024 NH/SNF Visit [facility] [address] [phone] Deanne Perdue MD Primary hypertension (Primary Dx); Mixed hyperlipidemia; 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 behavioral disturbance, psychotic disturbance, mood disturbance, or anxiety (HCC); Closed fracture of right hip, with routine healing, subsequent encounter; Moderate protein-calorie malnutrition; Urinary retention; Syncope and collapse 09/02/2024 NH/SNF Visit [facility] [address] [phone] Marian Garay NP Closed fracture of right hip, with routine healing, subsequent encounter (Primary Dx); Urinary retention; 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 behavioral disturbance, psychotic disturbance, mood disturbance, or anxiety (HCC); Hypoxia; Primary hypertension 08/31/2024 8:00 PM CDT - 09/01/2024 11:02 AM CDT Emergency [address] [address] Kaelyn Ansari MD Fall, initial encounter (Primary Dx) Discharge Disposition: Discharge to home or self care 08/29/2024 NH/SNF Visit [address] [phone] Deanne Perdue MD Primary hypertension (Primary Dx); Mixed hyperlipidemia; 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 behavioral disturbance, psychotic disturbance, mood disturbance, or anxiety (HCC); Closed fracture of right hip, initial encounter (HCC); Moderate protein-calorie malnutrition; Urinary retention; Hypoxia 08/29/2024 Telephone [facility] [address] [place] [phone] Marian Garay NP After Hours 08/28/2024 NH/SNF Visit [address] [phone] Marian Garay NP Closed fracture of right hip, with routine healing, subsequent encounter (Primary Dx); Hypoxia; 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 behavioral disturbance, psychotic disturbance, mood disturbance, or anxiety (HCC); Urinary retention; Primary hypertension; Syncope and collapse; Mixed hyperlipidemia 08/25/2024 10:30 AM CDT - 08/25/2024 12:50 PM CDT Surgery [address] [address] Rick Hernandez DO RIGHT HIP HEMIARTHROPLASTY 08/25/2024 10:15 AM CDT Anesthesia Event [address] [address] Ramses Hernandez MD 08/24/2024 6:56 PM DIRECTOR MORTGAGE - 08/28/2024 12:30 PM CDT Hospital Encounter [address] [address] Gino Amanda MD Potluri, Sobhana Krishna, MD Closed fracture of right hip, initial encounter (HCC) (Primary Dx) Discharge Disposition: Discharge to home or self care from Last 3 Months Medical History Medical History Date Comments HTN (hypertension) Social History Tobacco Use Types Packs/Day Years Used Date Smoking Tobacco: Never Tobacco Cessation:Counseling Given: Not Answered [facility] Utilities Answer Date Recorded In the past 12 months has [employer], gas, oil, or water [employer] threatened to shut off services in your [...] often do you attend chur ch or yarsani services? Patient unable to answer 08/26/2024 Do you belong to any clubs o r organizations such as amish groups, unions, fraternal or athletic groups, or [...] any time in the past 12 m [facility] [place], were you homeless or living in a intermediate (including now)? Patient unable to answer 08/26/2024 Personal Safety Answer Date Recorded Have you ever been in or are you currently in a harmful physical or emotional relationship or is someone making you feel afraid or unsafe? Patient unable to answer 08/31/2024 Comments No Sex and Gender Information Value Date Recorded Sex Assigned at Not on file Legal Sex Female 2:33 AM DIRECTOR MORTGAGE Gender Identity Not on file Sexual Orientation [...] 04/06/2021, 08/2016 Medical Devices Implanted Type Area Social Welfare Research Worker Device Identifier Shelf Expiration Date Model / Serial / Lot [employer] Simplex P Radiopaque Full Dose Cement Bone Sterile 6191-1-010 - [id number] Implanted:Qty: 2 on 08/25/2024 by Rick Hernandez DO at [facility] Right: Hip [employer] 02/16/2027 6191-1-010 / / [id number] [employer] Restrictor Hip Cement Kit Bone Preparation Bioprep [id number] - [id number] Implanted:Qty: 1 on 08/25/2024 by Rick Hernandez DO at [facility] Right: Hip [employer] 05/19/2029 [id number] / / [id number] [employer] Columbia 114mm Cemented Hip 4 06/01 Standard Offset Taper Stem [id number] - [id number] Implanted:Qty: 1 on 08/25/2024 by Rick Hernandez DO at [facility] Right: Hip [employer] [id number] 06/18/2029 [id number] / / [employer] Cementralizer 9.25mm Cemented Hip Femur Centralizer Stem Pmma Latex Free [id number] - [id number] Implanted:Qty: 1 on 08/25/2024 by Rick Hernandez DO at [facility] Right: Hip [employer] [id number] 03/18/2028 [id number] / / [employer] Self-Centering 49mm 28mm Hip Femur Head Bipolar Sterile Brown [id number] - [id number] Implanted:Qty: 1 on 08/25/2024 by Rick Hernandez DO at [facility] Right: Hip [employer] [id number] 01/16/2029 [id number] / / [id number] [employer] Articul/Josué 28mm Hip +5mm 12/14 Taper Head Femoral Cocr Sterile Latex Free 1365-12-000 - [id number] Implanted:Qty: 1 on 08/25/2024 by Rick Hernandez DO at [facility] Right: Hip [employer] [id number] 06/18/2029 1365-12-000 / / [id number] Procedures Procedure Name Priority Date/Time Associated Diagnosis [...] 3 VIEWS ED 08/25/2024 12:20 PM CDT ND AN PROCEDURE PLACEHOLDER Routine 08/25/2024 10:36 AM CDT ND AN ELECTIVE ENDOTRACHEAL AIRWAY Routine 08/25/2024 10:36 AM CDT PROSTHESIS HIP - BIPOLAR 08/25/2024 10:14 AM CDT URINALYSIS AND REFLEX TO MICROSCOPIC AND CULTURE STAT 08/25/2024 6:[address] PELVIS WO CONTRAST ED Urgent/IP Urgent 08/24/2024 9:[address] CERVICAL SPINE WO CONTRAST ED 08/24/2024 8:[address] HEAD WO CONTRAST ED 08/24/2024 8 :18 PM DIRECTOR MORTGAGE DIFFERENTIAL AUTO STAT 08/24/2024 7:5 3 PM DIRECTOR MORTGAGE CBC WITH AUTO DIFFERENTIAL STAT 08/24/2024 7:53 PM DIRECTOR MORTGAGE XR HIP RIGHT 2 OR 3 VIEWS ED 08/24/2024 7:52 PM DIRECTOR MORTGAGE EGFR STAT 08/24/2024 7:24 PM DIRECTOR MORTGAGE COMPREHENSIVE METABOLIC PANEL STAT 08/24/2024 7:24 PM DIRECTOR MORTGAGE from Last 3 Months Results * XR [...] signed by Lavon GALLAGHER T: Report ID: [id number] Reading Location: [id number] Procedure Note Lavon Osei, DO - 09/18/2024 [...] Lavon Osei D.O. AP T: Report ID: [id number] Reading Location: [place] [address] Luiza JAMESON IMG XR PROCEDURES Final Re [...] with voice recognition software. Occasional wrong-word or 'jpqjf-e-vlgm' substitutions may have occurred due to the [...] with voice recognition software. Occasional wrong-word or 'faydp-z-wgyx' substitutions may have occurred due to the [...] Hudson Turner M.D. MM T: Report ID: [id number] Reading Location: [id number] Procedure Note Hudson Turner MD - 08/31/2024 EXAM DESCRIPTION: CT HEAD WO CONTRAST; CT CERVICAL SPINE WO CONTRAST REASON FOR STUDY: Head trauma, minor (Age >= 65y) Portions of the record may have been created with voice recognitionsoftware. Occasional wrong-word or 'xuluu-y-dbmh' substitutions may have occurreddue to the inherent [...] created with voice recognitionsoftware. Occasional wrong-word or 'tiglz-d-cmlq' substitutions may have occurreddue to the inherent [...] 9:12 PM - Electronically signed by Hudson Turenr M.D. MM T: Report ID: [id number] Reading Location: [id number] us Kaelyn Ansari MD IMG CT PROCEDURES [...] with voice recognition software. Occasional wrong-word or 'qkrdw-g-ohke' substitutions may have occurred due to the [...] with voice recognition software. Occasional wrong-word or 'cwlxq-c-jdtj' substitutions may have occurred due to the [...] Hudson Turner M.D. MM T: Report ID: [id number] Reading Location: [id number] Procedure Note Hudson Turner MD - 08/31/2024 EXAM DESCRIPTION: CT HEAD WO CONTRAST; CT CERVICAL SPINE WO CONTRAST REASON FOR STUDY: Head trauma, minor (Age >= 65y) Portions of the record may have been created with voice recognitionsoftware. Occasional wrong-word or 'lokcg-y-xdtd' substitutions may have occurreddue to the inherent [...] created with voice recognitionsoftware. Occasional wrong-word or 'lyjkd-c-foaf' substitutions may have occurreddue to the inherent [...] Hudson Turner M.D., MM T: Report ID: [id number] Reading Location: [id number] Kaelyn Ansari MD IMG CT PROCEDURES Final [...] signed by Sixto MELENDREZ T: Report ID: [id number] Reading Location: [id number] Procedure Note Sixto Hopkins MD - 08/31/2024 [...] Sixto Hopkins M.D. AR T: Report ID: [id number] Reading Location: [id number] us Kaelyn Ansari MD IMG XR PROCEDURES [...] Sixto Hopkins M.D. AR T: Report ID: [id number] Reading Location: [id number] Procedure Note Sixto Hopkins MD - 08/31/2024 [...] Sixto Hopkins M.D. AR T: Report ID: [id number] Reading Location: [place] [address] us Kaelyn Ansari MD IMG XR PROCEDURES Final Result * (ABNORMAL) Hemoglobin and hematocrit (08/28/2024 8:29 AM CDT) Hgb 8.2(L) 11.9 - 15.5 g/dL Hct 25.2(L) 35.6 - 45.5 % [facility] Blood 08/28/2024 8:29 AM CDT 08/28/2024 8:51 AM CDT us Selena Allan MD LAB BLOOD ORDERABLES Final Result [facility] [address] [facility] Department [place] [address] * (ABNORMAL) eGFR (08/28/2024 5:24 AM CDT) [...] Allan MD LAB BLOOD ORDERABLES Final Result [facility] [address] [facility] [place] [address] * (ABNORMAL) Basic metabolic panel (08/28/2024 5:24 AM CDT) Sodium 139 135 - 145 mmol/L Potassium, pl 3.9 3.3 - 4.9 mmol/L [facility] Chloride 106 97 - 110 mmol/L [facility] CO2 27 22 - 32 mmol/L [facility] Anion gap 6 2 - 15 mmol/L [facility] BUN 33(H) 6 - 25 mg/dL [facility] Creatinine 1.13(H) 0.60 - 1.10 mg/dL [facility] Glucose 104 70 - 199 mg/dL [facility] Comment: Interpretive Data Fasting glucose [...] 2022. Calcium 8.4(L) 8.5 - 10.3 mg/dL [facility] Blood 08/28/2024 5:24 AM CDT 08/28/2024 5:57 AM CDT Selena Allan MD LAB BLOOD ORDERABLES Final Result Performing Organization Address [facility] Co de Phone Number [facility] [address] [place] [address] * (ABNORMAL) eGFR (08/27/2024 3:45 PM CDT) Pathologist [facility] eGFR 22(L) >=60 mL/min/1. 73 m2 Comment: [...] BLOOD ORDERABLES Final Result Performing Organization Address City/[facility]/ZIP Co de Phone Number [facility] [address] [place] [address] * (ABNORMAL) Differential, auto (08/27/2024 3:45 PM CDT) [facility] Neutrophil abs 5.7 1.5 - 6.5 K/cumm Imm gran abs 0.0 0.0 - 0.1 K/cumm [facility] Lymphocyte abs 0.9 0.8 - 3.3 K/cumm [facility] Monocyte abs 1.0(H) 0.2 - 0.8 K/cumm [facility] Eosinophil abs 0.1 0.0 - 0.5 K/cumm [facility] Basophil abs 0.0 0.0 - 0.1 K/cumm [facility] Neutrophil pct 74.0 % [facility] Comment: Interpretive Data Percent cell count reference ranges are not reported, since discordance with absolute values may lead to misinterpretation of CBC data. Current Interpretive Data was last revised on 2017. Imm gran pct 0.5 % [facility] Comment: Interpretive Data Percent cell count reference ranges are not reported, since discordance with absolute values may lead to misinterpretation of CBC data. Current Interpretive Data was last revised on 2017. Lymphocyte pct 11.7 % [facility] Comment: Interpretive Data Percent cell count reference ranges are not reported, since discordance with absolute values may lead to misinterpretation of CBC data. Current Interpretive Data was last revised on 2017. Monocyte pct 12.4 % [facility] Comment: Interpretive Data Percent cell count reference ranges are not reported, since discordance with absolute values may lead to misinterpretation of CBC data. Current Interpretive Data was last revised on 2017. Eosinophil pct 1.3 % [facility] Comment: Interpretive Data Percent cell count reference ranges are not reported, since discordance with absolute values may lead to misinterpretation of CBC data. Current Interpretive Data was last revised on 2017. Basophil pct 0.1 % [facility] Comment: Interpretive Data Percent cell count reference ranges are not reported, since discordance with absolute values may lead to misinterpretation of CBC data. Current Interpretive Data was last revised on 2017. Blood 08/27/2024 3:45 PM CDT 08/27/2024 3:58 PM CDT us Selena Allan MD LAB BLOOD ORDERABLES Final Result [facility] [address] [facility] Department [place] [address] * (ABNORMAL) CBC with auto differential (08/27/2024 3:45 PM CDT) [facility] WBC 7.8 3.8 - 9.9 K/cumm Hgb 8.5(L) 11.9 - 15.5 g/dL [facility] Hct 27.3(L) 35.6 - 45.5 % [facility] Plt 123(L) 150 - 400 K/cumm [facility] MPV 12.7(H) 9.1 - 12.[address] [facility] RBC 2.89(L) 3.90 - 5.20 M/cumm [facility] MCV 94.5 81.3 - 96.[address] [facility] MCH 29.4 27.1 - 33.[address] [facility] MCHC 31.1(L) 32.3 - 35.7 g/dL [facility] RDW CV 14.2 11.1 - 14.9 % [facility] RDW SD 48.7(H) 35.7 - 48.[address] [facility] NRBC abs 0.00 0.00 - 0.01 K/cumm [facility] Blood 08/27/2024 3:45 PM CDT 08/27/2024 3:58 PM CDT us Selena Allan MD LAB BLOOD ORDERABLES Final Result [facility] [address] [facility] Department [place] [address] * (ABNORMAL) Comprehensive metabolic panel (08/27/2024 3:45 PM CDT) [facility] Sodium 136 135 - 145 mmol/L Potassium, pl 4.0 3.3 - 4.9 mmol/L [facility] Chloride 103 97 - 110 mmol/L [facility] CO2 21(L) 22 - 32 mmol/L [facility] Anion gap 12 2 - 15 mmol/L [facility] BUN 39(H) 6 - 25 mg/dL [facility] Creatinine 2.16(H) 0.60 - 1.10 mg/dL [facility] Glucose 120 70 - 199 mg/dL [facility] Comment: Interpretive Data Fasting glucose [...] 2022. Calcium 8.1(L) 8.5 - 10.3 mg/dL [facility] Bilirubin, total 0.7 0.1 - 1.2 mg/dL [facility] Protein, pl 5.4(L) 6.5 - 8.5 g/dL [facility] Albumin 2.9(L) 3.5 - 5.0 g/dL [facility] Alk phos 54 40 - 130 Units/L [facility] ALT 11 7 - 45 Units/L [facility] AST 25 10 - 45 Units/L [facility] Blood 08/27/2024 3:45 PM CDT 08/27/2024 3:58 PM CDT us Selena Allan MD LAB BLOOD ORDERABLES Final Result [facility] [address] [facility] Department [place] [address] * (ABNORMAL) CBC without differential (08/26/2024 10:41 AM CDT) Pathologist [facility] WBC 8.1 3.8 - 9.9 K/cumm Hgb 9.1(L) 11.9 - 15.5 g/dL [facility] Hct 29.5(L) 35.6 - 45.5 % [facility] Plt 124(L) 150 - 400 K/cumm [facility] MPV 12.9(H) 9.1 - 12.[address] [facility] RBC 3.07(L) 3.90 - 5.20 M/cumm [facility] MCV 96.1 81.3 - 96.[address] [facility] MCH 29.6 27.1 - 33.[address] [facility] MCHC 30.8(L) 32.3 - 35.7 g/dL [facility] RDW CV 14.0 11.1 - 14.9 % [facility] RDW SD 49.1(H) 35.7 - 48.[address] [facility] NRBC abs 0.00 0.00 - 0.01 K/cumm [facility] Blood 08/26/2024 10:4 1 AM CDT 08/26/2024 11:20 AM CDT Selena Allan MD LAB BLOOD ORDERABLES Final Result Performing Organization Address City/[facility] Co de Phone Number [id number] [place] [address] * (ABNORMAL) eGFR (08/26/2024 7:52 [...] BLOOD ORDERABLES Final Result Performing Organization Address City/[facility]/ZIP Co de Phone Number [address] Department [place] [address] * (ABNORMAL) Basic metabolic panel (08/26/2024 7:52 AM CDT) [facility] Sodium 137 135 - 145 mmol/L Potassium, pl 4.4 3.3 - 4.9 mmol/L [facility] Comment:Hemolyzed; Potassium value may be falsely elevated by as much as 1.0 mmol/L. Suggest redraw and reanalysis. Chloride 104 97 - 110 mmol/L [facility] CO2 22 22 - 32 mmol/L [facility] Anion gap 11 2 - 15 mmol/L [facility] BUN 22 6 - 25 mg/dL [facility] Creatinine 1.06 0.60 - 1.10 mg/dL [facility] Glucose 102 70 - 199 mg/dL [facility] Comment: Interpretive Data Fasting glucose [...] 2022. Calcium 8.0(L) 8.5 - 10.3 mg/dL [facility] Blood 08/26/2024 7:52 AM CDT 08/26/2024 7:59 AM CDT us Selena Allan MD LAB BLOOD ORDERABLES Final Result [facility] [address] [facility] Department [place] [address] * (ABNORMAL) Differential, auto (08/25/2024 5:15 PM CDT) [facility] Neutrophil abs 13.3(H) 1.5 - 6.5 K/cumm Imm gran abs 0.1 0.0 - 0.1 K/cumm [facility] Lymphocyte abs 0.6(L) 0.8 - 3.3 K/cumm [facility] Monocyte abs 0.8 0.2 - 0.8 K/cumm [facility] Eosinophil abs 0.0 0.0 - 0.5 K/cumm [facility] Basophil abs 0.0 0.0 - 0.1 K/cumm [facility] Neutrophil pct 90.1 % [facility] Comment: Interpretive Data Percent cell count reference ranges are not reported, since discordance with absolute values may lead to misinterpretation of CBC data. Current Interpretive Data was last revised on 2017. Imm gran pct 0.3 % [facility] Comment: Interpretive Data Percent cell count reference ranges are not reported, since discordance with absolute values may lead to misinterpretation of CBC data. Current Interpretive Data was last revised on 2017. Lymphocyte pct 4.1 % [facility] Comment: Interpretive Data Percent cell count reference ranges are not reported, since discordance with absolute values may lead to misinterpretation of CBC data. Current Interpretive Data was last revised on 2017. Monocyte pct 5.3 % [facility] Comment: Interpretive Data Percent cell count reference ranges are not reported, since discordance with absolute values may lead to misinterpretation of CBC data. Current Interpretive Data was last revised on 2017. Eosinophil pct 0.1 % [facility] Comment: Interpretive Data Percent cell count reference ranges are not reported, since discordance with absolute values may lead to misinterpretation of CBC data. Current Interpretive Data was last revised on 2017. Basophil pct 0.1 % [facility] Comment: Interpretive Data Percent cell count reference ranges are not reported, since discordance with absolute values may lead to misinterpretation of CBC data. Current Interpretive Data was last revised on 2017. Blood 08/25/2024 5:15 PM CDT 08/25/2024 5:35 PM CDT us Selena Allan MD LAB BLOOD ORDERABLES Final Result [facility] [id number] [facility] Department [place] [address] * (ABNORMAL) CBC with auto differential (08/25/2024 5:15 PM CDT) WBC 14.8(H) 3.8 - 9.9 K/cumm Hgb 10.7(L) 11.9 - 15.5 g/dL [facility] Hct 34.3(L) 35.6 - 45.5 % [facility] Plt 172 150 - 400 K/cumm [facility] MPV 12.8(H) 9.1 - 12.[address] [facility] RBC 3.68(L) 3.90 - 5.20 M/cumm [facility] MCV 93.2 81.3 - 96.[address] [facility] MCH 29.1 27.1 - 33.[address] [facility] MCHC 31.2(L) 32.3 - 35.7 g/dL [facility] RDW CV 13.7 11.1 - 14.9 % [facility] RDW SD 46.9 35.7 - 48.[address] [facility] NRBC abs 0.00 0.00 - 0.01 K/cumm [facility] Blood 08/25/2024 5:15 PM CDT 08/25/2024 5:35 PM CDT us Selena Allan MD LAB BLOOD ORDERABLES Final Result [facility] [address] [facility] Department [place] [address] * XR Hip Right 2 or 3 [...] immediate complication. No acute fracture or dislocation. 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 Degeneration of the bilateral sacroiliac joints. SOFT TISSUES: Unremarkable. OTHER: No significant finding. 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 THIS IS AN ELECTRONICALLY VERIFIED FINAL REPORT 08/25/2024 1:06 PM - Electronically signed by Shamar Harkins M.D. T: Report ID: [id number] Reading Location: [id number] Procedure Note Shamar Harkins DO - 08/25/2024 [...] immediate complication. No acute fracture or dislocation. 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 Degeneration of the bilateral sacroiliac joints. SOFT TISSUES: Unremarkable. OTHER: No significant finding. 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 THIS IS AN ELECTRONICALLY VERIFIED FINAL REPORT 08/25/2024 1:06 PM - Electronically signed by Shamar Harkins M.D. T: Report ID: [id number] Reading Location: [id number] Luiza JAMESON IMG XR PROCEDURES Final Re sult * ND AN ELECTIVE ENDOTRACHEAL AIRWAY, ND AN PROCEDURE PLACEHOLDER (08/25/2024 10:36 AM CDT) [...] ur Yellow Yellow Clarity, ur Clear Clear [facility] Specific gravity, ur 1.022 1.003 - 1.[address] [facility] pH, urine 7.[address] [facility] Comment: Interpretive Data U rine pH is affected by diet, medications, systemic acid-base disturbances, and renal tubular function. pH may affect urinary stone formation. For example, urine pH below 6.0 may help reduce the tendency for calcium phosphate stones and pH greater than 6.0 may reduce the tendency for uric acid stone formation. Source: [facility] Laboratories Current Interpretive Data was last revised on 2017 Protein, ur ql Negative Negative [facility] Glucose, ur ql Negative Negative [facility] Ketones, ur Trace Negative [facility] Bilirubin, ur Negative Negative [facility] Blood, ur Negative Negative [facility] Urobilinogen, ur 2.0(A) <2.0 mg/dL [facility] Nitrite, ur Negative Negative [facility] Leukocyte esterase, ur Negative Negative [facility] UA reflex comment Reflex conditions for microscopic UA and culture not met. [facility] Urine 08/25/2024 6:59 AM CDT 08/25/2024 7:20 AM CDT us Gino mAanda MD LAB MICROBIOLOGY - G ENERAL ORDERABLES Final Result [facility] [address] [facility] Department [place] [address] * CT Pelvis WO Contrast (08/24/2024 9:50 PM DIRECTOR MORTGAGE) Anatomical Region Laterality Modality Body N/A Computed Tomogra phy 08/24/2024 10:3 2 PM [employer] Narrative 08/24/2024 10:35 PM DIRECTOR MORTGAGE EXAM DESCRIPTION: CT PELVIS WO CONTRAST REASON FOR STUDY: Hip trauma, fracture suspected, xray done Patient BIBEMS from [facility] with complaints of fall. EMS reports shortened [...] signed by Sixto MELENDREZ T: Report ID: [id number] Reading Location: [place] [address] Procedure Note Sixto Hopkins MD - 08/24/2024 EXAM DESCRIPTION: CT PELVIS WO CONTRAST REASON FOR STUDY: Hip trauma, fracture suspected, xray done Patient BIBCAROLYN from [facility] with complaints of fall. EMS reports shortened [...] Sixto Hopkins M.D. AR T: Report ID: [id number] Reading Location: [id number] Luiza JAMESON IMG CT PROCEDURES Final Re sult * CT Cervical Spine WO Contrast (08/24/2024 8:18 PM DIRECTOR MORTGAGE) Anatomical Region Laterality Modality Spine N/A Computed Tomogra phy 08/24/2024 8:31 PM [employer]GAGE Narrative 08/24/2024 8:32 PM DIRECTOR MORTGAGE EXAM DESCRIPTION: CT CERVICAL SPINE WO CONTRAST [...] signed by Sixto MELENDREZ T: Report ID: [id number] Reading Location: [id number] Procedure Note Sixto Hopkins MD - 08/24/2024 [...] Sixto Hopkins M.D. AR T: Report ID: [id number] Reading Location: [id number] Kellie Rodriguez GISELL IM CT PROCEDURES Final Result * CT Head WO Contrast (08/24/2024 8:18 PM DIRECTOR [employer]ORTGAGE) Anatomical Region Laterality Modality Head and Neck N/A Computed Tomogra phy 08/24/2024 8:33 PM [employer]GAGE Narrative 08/24/2024 8:34 PM DIRECT[employer]GAGE EXAM DESCRIPTION: CT HEAD WO CONTRAST REASON [...] Sixto Hopkins M.D. AR T: Report ID: [id number] Reading Location: [id number] Procedure Note Sixto Hopkins MD - 08/24/2024 [...] Sixto Hopkins M.D. AR T: Report ID: [id number] Reading Location: [place] [address] PROCEDURES Final Result * Differential, auto (08/24/2024 7:53 PM DIRECT[employer]) Neutrophil abs 4.9 1.5 - 6.5 K/cumm Imm gran abs 0.0 0.0 - 0.1 K/cumm [facility] Lymphocyte abs 1.2 0.8 - 3.3 K/cumm [facility] Monocyte abs 0.6 0.2 - 0.8 K/cumm [facility] Eosinophil abs 0.1 0.0 - 0.5 K/cumm [facility] Basophil abs 0.0 0.0 - 0.1 K/cumm [facility] Neutrophil pct 72.7 % [facility] Comment: Interpretive Data Percent cell count reference ranges are not reported, since discordance with absolute values may lead to misinterpretation of CBC data. Current Interpretive Data was last revised on 2017. Imm gran pct 0.4 % [facility] Comment: Interpretive Data Percent cell count reference ranges are not reported, since discordance with absolute values may lead to misinterpretation of CBC data. Current Interpretive Data was last revised on 2017. Lymphocyte pct 17.9 % [facility] Comment: Interpretive Data Percent cell count reference ranges are not reported, since discordance with absolute values may lead to misinterpretation of CBC data. Current Interpretive Data was last revised on 2017. Monocyte pct 8.2 % [facility] Comment: Interpretive Data Percent cell count reference ranges are not reported, since discordance with absolute values may lead to misinterpretation of CBC data. Current Interpretive Data was last revised on 2017. Eosinophil pct 0.7 % [facility] Comment: Interpretive Data Percent cell count reference ranges are not reported, since discordance with absolute values may lead to misinterpretation of CBC data. Current Interpretive Data was last revised on 2017. Basophil pct 0.1 % [facility] Comment: Interpretive Data Percent cell count reference ranges are not reported, since discordance with absolute values may lead to misinterpretation of CBC data. Current Interpretive Data was last revised on 2017. Blood 08/24/2024 7:53 PM [employer]GAGE 08/24/2024 8:00 PM [employer] us Kellie JAMESON LAB BLOOD ORDERABLES Final Resu lt [facility] [address] [facility] Department [place] [address] * (ABNORMAL) CBC with auto differential (08/24/2024 7:53 PM DIRECTOR MORTGAGE) WBC 6.8 3.8 - 9.9 K/cumm Hgb 12.8 11.9 - 15.5 g/dL [facility] Hct 38.9 35.6 - 45.5 % [facility] Plt 138(L) 150 - 400 K/cumm [facility] MPV 11.9 9.1 - 12.[address] [facility] RBC 4.39 3.90 - 5.20 M/cumm [facility] MCV 88.6 81.3 - 96.[address] [facility] MCH 29.2 27.1 - 33.[address] [facility] MCHC 32.9 32.3 - 35.7 g/dL [facility] RDW CV 13.7 11.1 - 14.9 % [facility] RDW SD 44.6 35.7 - 48.[address] [facility] NRBC abs 0.00 0.00 - 0.01 K/cumm [facility] Blood 08/24/2024 7:53 PM [employer]AGE 08/24/2024 8:00 PM DIRECT[employer]AGE Kellie JAMESON LAB BLOOD ORDERABLES Final Resu lt [facility] [address] [facility] Department [place] [address] * XR Hip Right 2 or 3 Views (08/24/2024 7:52 PM DIRECTOR [employer]ORTG[employer]) Anatomical Region Laterality Modality Lower Extremities, Hip, Pelvis Right C omputed Radiography 08/24/2024 8:30 PM DIRECT[employer]GAGE Narrative 08/24/2024 8:31 PM [employer] EXAM DESCRIPTION: XR HIP RIGHT 2 OR 3 VIEWS REASON FOR STUDY: trauma, concern for fracture Patient BIBEMS from [facility] with complaints of fall. EMS reports shortened [...] signed by Sixto MELENDREZ T: Report ID: [id number] Reading Location: [id number] Procedure Note Sixto Hopkins MD - 08/24/2024 EXAM DESCRIPTION: XR HIP RIGHT 2 OR 3 VIEWS REASON FOR STUDY: trauma, concern for fracture Patient BIBEMS from [facility] with complaints of fall. EMS reports shortened [...] Sixto Hopkins M.D. AR T: Report ID: [id number] Reading Location: [place] [address] us Kellie JAMESNO IMG XR PROCEDURES Final Result * eGFR (08/24/2024 7:24 PM DIRECTOR [employer]ORTGAGE) eGFR 62 >=60 mL/min/1. 73 m2 Comment: [...] last reviewed 2021. Blood 08/24/2024 7:24 PM DIRECTOR M[employer]GAGE 08/24/2024 7:25 PM DIRECT[employer] us Kellie JAMESON LAB BLOOD ORDERABLES Final Resu lt [facility] [address] [facility] [place] [address] * Comprehensive metabolic panel (08/24/2024 7:24 PM DIRECTOR MORTGAGE) Sodium 141 135 - 145 mmol/L Potassium, pl 4.5 3.3 - 4.9 mmol/L [facility] Comment:Hemolyzed; Potassium value may be falsely elevated by as much as 1.0 mmol/L. Suggest redraw and reanalysis. Chloride 104 97 - 110 mmol/L [facility] CO2 27 22 - 32 mmol/L [facility] Anion gap 10 2 - 15 mmol/L [facility] BUN 16 6 - 25 mg/dL [facility] Creatinine 0.91 0.60 - 1.10 mg/dL [facility] Glucose 158 70 - 199 mg/dL [facility] Comment: Interpretive Data Fasting glucose [...] 2022. Calcium 10.0 8.5 - 10.3 mg/dL [facility] Bilirubin, total 1.0 0.1 - 1.2 mg/dL [facility] Protein, pl 7.8 6.5 - 8.5 g/dL [facility] Albumin 4.4 3.5 - 5.0 g/dL [facility] Alk phos 79 40 - 130 Units/L [facility] ALT 32 7 - 45 Units/L [facility] AST See Comment 10 - [address] [facility] Comment:Credited; Hemolyzed Specimen Blood 08/24/2024 7:24 PM DIRECTOR MORTGAGE 08/24/2024 7:25 PM DIRECTOR MORTGAGE Kellie JAMESON LAB BLOOD ORDERABLES Final Resu lt [facility] [address] [facility] [place] [address] from Last 3 Months Insurance [employer] S[employer]IOR [employer]MENT MEDICARE MEDICARE [employer] S[employer]IOR [employer]MENT Advance Directives For more information, please contact: [phone] Documents on File Type Date Recorded Patient Freight Manager Expl anation ADVANCE DIRECTIVE 08/29/2024 1:15 PM POLST - Phys Order for PT Preferences ADVANCE DIRECTIVE 08/29/2024 1:15 PM Power of Workers' Compensation Magistrate-Medical * LIMITED - No CPR (Latest Code Status on File) Date Activated Date Inactivated Comments 08/25/2024 5:17 AM 08/28/2024 4:30 PM Question Answer Comments Provide aggressive medical m anagement before a full cardiopulmonary arrest occurs. 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
--- OUTSIDE RECORDS SUMMARY | 2024-11-15 05:16 | XMS_ITS | Referral Summary ---
Author Organization [facility] [address] Address [address] [place] [address] Care Team Providers Care Staff Climate Scientist Name Role Phone Bernie Luiza JAMESON Unavailable [phone] Lukas Herrera MD Primary Care Provider [phone] Encounters Date Type Department Care Team Description 09/23/2024 Telephone [facility] Medical Group Post Acute Care [address] [address], [place] [address] Kristi Anthony MA 09/19/2024 NH/SNF Visit [facility] Medical [facility] Post Acute Care [address] [phone] Marian Garay NP Closed fracture of right hip, with routine healing, subsequent encounter (Primary Dx); 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 behavioral disturbance, psychotic disturbance, mood disturbance, or anxiety (HCC); Primary hypertension; Syncope and collapse; Mixed hyperlipidemia; Urinary retention 09/17/2024 NH/SNF Visit [facility] Medical [facility] Post Acute Care [address] [phone] Marian Garay NP Closed fracture of right hip, with routine healing, subsequent encounter (Primary Dx); 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 behavioral disturbance, psychotic disturbance, mood disturbance, or anxiety (HCC); Primary hypertension 09/12/2024 NH/SNF Visit [facility] Medical [facility] Post Acute Care [address] [phone] Marian Garay NP Closed fracture of right hip, with routine healing, subsequent encounter (Primary Dx); 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 behavioral disturbance, psychotic disturbance, mood disturbance, or anxiety (HCC); Transient alteration of awareness 09/11/2024 10:14 AM CDT - 09/11/2024 11:59 PM CDT Hospital Encounter [facility] [address] [place] [address] Closed fracture of right hip, initial encounter (HCC) Discharge Disposition: Discharge to home or self care 09/11/2024 10:15 AM CDT Office Visit [facility] Medical [facility] Orthopedics and Sports Medicine [facility] [address] [phone] Luiza Gibbs PA Status post hip hemiarthroplasty (Primary Dx); Closed fracture of right hip, initial encounter (HCC); Superficial incisional infection of surgical site 09/10/2024 NH/SNF Visit [facility] Medical [facility] Post [address] [phone] Marian Garay NP Status post hip hemiarthroplasty (Primary Dx); 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 behavioral disturbance, psychotic disturbance, mood disturbance, or anxiety (HCC); Primary hypertension 09/03/2024 NH/SNF Visit [facility] Medical [facility] Post [address] [phone] Deanne Perdue MD Primary hypertension (Primary Dx); Mixed hyperlipidemia; 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 behavioral disturbance, psychotic disturbance, mood disturbance, or anxiety (HCC); Closed fracture of right hip, with routine healing, subsequent encounter; Moderate protein-calorie malnutrition; Urinary retention; Syncope and collapse 09/02/2024 NH/SNF Visit [facility] Medical [facility] Post Acute Care [address] [phone] Marian Garay NP Closed fracture of right hip, with routine healing, subsequent encounter (Primary Dx); Urinary retention; 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 behavioral disturbance, psychotic disturbance, mood disturbance, or anxiety (HCC); Hypoxia; Primary hypertension 08/31/2024 8:00 PM CDT - 09/01/2024 11:02 AM CDT Emergency [address] [address] Kaelyn Ansari MD Fall, initial encounter (Primary Dx) Discharge Disposition: Discharge to home or self care 08/29/2024 NH/SNF Visit [facility] Medical [facility] Post Acute Care [address] [phone] Deanne Perdue MD Primary hypertension (Primary Dx); Mixed hyperlipidemia; 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 behavioral disturbance, psychotic disturbance, mood disturbance, or anxiety (HCC); Closed fracture of right hip, initial encounter (HCC); Moderate protein-calorie malnutrition; Urinary retention; Hypoxia 08/29/2024 Telephone [facility] Medical [facility] Hospitalists [address] [place] [phone] Marian Garay NP After Hours 08/28/2024 NH/SNF Visit [facility] Post Acute Care [address] [phone] Marian Garay NP Closed fracture of right hip, with routine healing, subsequent encounter (Primary Dx); Hypoxia; 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 behavioral disturbance, psychotic disturbance, mood disturbance, or anxiety (HCC); Urinary retention; Primary hypertension; Syncope and collapse; Mixed hyperlipidemia 08/24/2024 6:56 PM MEMORIAL DESIGNER - 08/28/2024 12:30 PM CDT Hospital Encounter [address] [address] Gino Amanda MD Potluri, Sobhana Krishna, MD Closed fracture of right hip, initial encounter (HCC) (Primary Dx) Discharge Disposition: Discharge to home or self care 08/25/2024 10:15 AM CDT Anesthesia Event [facility] [place] [address] [place] [address] Ramses Hernandez MD 08/25/2024 10:30 AM CDT - 08/25/2024 12:50 PM CDT Surgery [facility] [address] [place] [address] Rick Hernandez, RIGHT HIP HEMIARTHROPLASTY from Last 3 Months Allergies Active Allergy Reactions Criticality Noted Date Comments Codeine Nausea & Vomiting Low 02/25/2024 Medications atorvastatin (LIPITOR) 10 mg tablet Take 1 tablet (10 mg total) by mouth daily Active levothyroxine (SYNTHROID) 50 mcg tablet Take 1 tablet (50 mcg total) by mouth lining printer before breakfast Active metoprolol XL (Toprol XL) [...] for WBAT to continue PT/OT DC to [facility] with ortho f/u as scheduled Assessment & Plan (09/20/2024 4:55 PM CDT): S/p hemiarthroplasty dr Coates 08/25 following fall No change in sx today following same level fall Ambulates with gait belt and walker Surgical incision healing as expected Denies pain PRN tylenol available Continue PO doxy per ortho recs OK for WBAT to continue PT/OT DC to [facility] pending Assessment & Plan (09/12/2024 2:41 PM CDT): Surgical incision healing as expected Denies pain PRN tylenol available Continue PO doxy per ortho recs OK for WBAT to continue PT/OT Assessment & Plan (09/07/2024 9:08 PM CDT): S/p hemiarthroplasty 08/25 following fall in [facility] Repeat films with appropriate anatomic alignment following [...] 05/02/2024 Assessment & Plan (05/02/2024 7:49 PM MEMORIAL DESIGNER): Normal exam today, consider getting hearing checked, [...] DC as able Plans to return to [facility] following rehab stay Assessment & Plan (09/03/2024 [...] hygiene Pt well known to me from [facility] and has severe cognitive impairment, at high risk for post operative complications and fall Assessment & Plan (08/29/2024 2:43 PM CDT): Chronic, stable Pt is not agitated Alert to person, not to place or time Baseline Assessment & Plan (07/12/2024 7:26 PM MEMORIAL DESIGNER): Has adjusted well to [facility] setting Pleasantly confused with no reports of anxiety or agitation Continue sertraline 25 mg daily Monitor weight and nutrition Remote sleep hygiene Okay to DC HS melatonin Assessment & Plan (05/02/2024 7:50 PM MEMORIAL DESIGNER): Stable on sertraline 25mg daily, continue supportive [...] 03/08/2024 Assessment & Plan (07/12/2024 7:37 PM MEMORIAL DESIGNER): Continue alendronate Add calcium supplement with vitamin-D [...] and olmesartan and metoprolol held Resumed at [place] Will need to monitor and hold as necessary Assessment & Plan (08/29/2024 2:45 PM CDT): Chronic, stable Continue Metoprolol 25 mg by mouth daily, and Olmesartan 20 mg daily BP has been appropriate, logs reviewed, 146/54 today GDR as able for BP goal less than 150 over less than 90 Assessment & Plan (07/12/2024 7:22 PM MEMORIAL DESIGNER): BP logs reviewed, SBP 110-120 Continue olmesartan [...] daily Assessment & Plan (07/12/2024 7:26 PM MEMORIAL DESIGNER): Lipid panel stable on atorvastatin 10 mg Ldl 86 Chol 150 Trig 73 Continue for now Plan to [place] at subsequent visit given age and frailty Assessment & Plan (03/08/2024 11:51 AM CDT): Continue atorvastatin, check lipid panel with admission labs Resolved Problems Problem Noted Date Diagnosed Date Resolved Date Functional diarrhea 07/12/2024 09/02/19 Assessment & Plan (07/12/2024 7:37 PM MEMORIAL DESIGNER): Describes as in the morning only and feels this is related to HS melatonin, likely unrelated but we will DC HS melatonin for now Check BMP with routine labs Abdominal exam benign Encourage oral hydration Dizziness 02/29/2024 09/07/2024 Assessment & Plan (05/02/2024 7:50 PM MEMORIAL DESIGNER): Exam is benign, encourage oral hydration, recent labs reassuring, will work up if sx persist Assessment & Plan (03/08/2024 11:50 AM CDT): Vertigo considered given recurrence of sx and improvement with meclizine, ok to continue low dose prn for now; DC dramamine, discussed with son risks Social History Tobacco Use Types Packs/Day Years Used Date Smoking Tobacco: Never Tobacco Cessation:Counseling Given: Not Answered [facility] Utilities Answer Date Recorded In the past 12 months has [employer], gas, oil, or water [place] threatened to shut off services in your [...] answer 08/26/2024 How often do you attend [facility] or christian services? Patient unable to answer 08/26/2024 Do you belong to any clubs o r organizations such as evangelical groups, unions, fraternal or athletic groups, or [...] any time in the past 12 m [facility], were you homeless or living in a penitentiary (including now)? Patient unable to answer 08/26/2024 Personal Safety Answer Date Recorded Have you ever been in or are you currently in a harmful physical or emotional relationship or is someone making you feel afraid or unsafe? Patient unable to answer 08/31/2024 Comments No Sex and Gender Information Value Date Recorded Sex Assigned at Not on file Legal Sex Female 2:33 AM MEMORIAL DESIGNER Gender Identity Not on file Sexual Orientation [...] on file Medical Devices Implanted Type Area Mechanical System Technician Device Identifier Shelf Expiration Date Model / Serial / Lot [employer] Simplex P Radiopaque Full Dose Cement Bone Sterile 6191-1-010 - [id number] Implanted:Qty: 2 on 08/25/2024 by Rick Hernandez DO at [facility] Right: Hip [employer] 02/16/2027 6191-1-010 / / [id number] [employer] Restrictor Hip Cement Kit Bone Preparation Bioprep [id number] - [id number] Implanted:Qty: 1 on 08/25/2024 by Rick Hernandez DO at [facility] Right: Hip [employer] 05/19/2029 [id number] / / [id number] [employer] [place] 114mm Cemented Hip 4 06/01 Standard Offset Taper Stem [id number] - [id number] Implanted:Qty: 1 on 08/25/2024 by Rick Hernandez DO at [facility] Right: Hip [employer] [id number] 06/18/2029 [id number] / / [employer] Cementralizer 9.25mm Cemented Hip Femur Centralizer Stem Pmma Latex Free [id number] - [id number] Implanted:Qty: 1 on 08/25/2024 by Rick Hernandez DO at [facility] Right: Hip [employer] [id number] 03/18/2028 [id number] / / [employer] Self-Centering 49mm 28mm Hip Femur Head Bipolar Sterile Brown [id number] - [id number] Implanted:Qty: 1 on 08/25/2024 by Rick Hernandez DO at [facility] Right: Hip [employer] [id number] 01/16/2029 [id number] / / [id number] [employer] Articul/Josué 28mm Hip +5mm 12/14 Taper Head Femoral Cocr Sterile Latex Free 1365-12-000 - [id number] Implanted:Qty: 1 on 08/25/2024 by Rick Hernandez DO at [facility] Right: Hip [employer] [id number] 06/18/2029 1365--000 / / [id number] Procedures Procedure Name Priority Date/Time Associated Diagnosis [...] 3 VIEWS ED 08/25/2024 12:20 PM CDT [place] AN PROCEDURE PLACEHOLDER Routine 08/25/2024 10:36 AM CDT [place] AN ELECTIVE ENDOTRACHEAL AIRWAY Routine 08/25/2024 10:36 AM CDT PROSTHESIS HIP - BIPOLAR 08/25/2024 10:14 AM CDT URINALYSIS AND REFLEX TO MICROSCOPIC AND CULTURE STAT 08/25/2024 6:[address] PELVIS WO CONTRAST ED Urgent/IP Urgent 08/24/2024 9:[address] CERVICAL SPINE WO CONTRAST ED 08/24/2024 8:[address] HEAD WO CONTRAST ED 08/24/2024 8 :18 PM MEMORIAL DESIGNER DIFFERENTIAL AUTO STAT 08/24/2024 7:5 3 PM MEMORIAL DESIGNER CBC WITH AUTO DIFFERENTIAL STAT 08/24/2024 7:53 PM MEMORIAL DESIGNER XR HIP RIGHT 2 OR 3 VIEWS ED 08/24/2024 7:52 PM MEMORIAL DESIGNER EGFR STAT 08/24/2024 7:24 PM MEMORIAL DESIGNER COMPREHENSIVE METABOLIC PANEL STAT 08/24/2024 7:24 PM MEMORIAL DESIGNER from Last 3 Months Results * XR [...] Lavon Osei D.O. AP T: Report ID: [id number] Reading Location: [id number] Procedure Note Lavon Osei, DO - 09/18/2024 [...] Lavon Osei D.O. AP T: Report ID: [id number] Reading Location: [place] [address] Luiza JAMESON IMG XR PROCEDURES Final Re [...] with voice recognition software. Occasional wrong-word or 'ihbpm-x-jdbp' substitutions may have occurred due to the [...] with voice recognition software. Occasional wrong-word or 'anxsc-o-pmtm' substitutions may have occurred due to the [...] Hudson Turner M.D. MM T: Report ID: [id number] Reading Location: [place] [address] Procedure Note Hudson Turner MD - 08/31/2024 EXAM DESCRIPTION: CT HEAD WO CONTRAST; CT CERVICAL SPINE WO CONTRAST REASON FOR STUDY: Head trauma, minor (Age >= 65y) Portions of the record may have been created with voice recognitionsoftware. Occasional wrong-word or 'hefsr-o-hnro' substitutions may have occurreddue to the inherent [...] created with voice recognitionsoftware. Occasional wrong-word or 'cfrve-y-pvdj' substitutions may have occurreddue to the inherent [...] Hudson Turner M.D. MM T: Report ID: [id number] Reading Location: [place] [address] Kaelyn Ansari MD IMG CT PROCEDURES Final [...] with voice recognition software. Occasional wrong-word or 'akdis-c-fwci' substitutions may have occurred due to the [...] with voice recognition software. Occasional wrong-word or 'jljkc-i-brus' substitutions may have occurred due to the [...] Hudson Turner M.D. MM T: Report ID: [id number] Reading Location: [id number] Procedure Note Hudson Turner MD - 08/31/2024 EXAM DESCRIPTION: CT HEAD WO CONTRAST; CT CERVICAL SPINE WO CONTRAST REASON FOR STUDY: Head trauma, minor (Age >= 65y) Portions of the record may have been created with voice recognitionsoftware. Occasional wrong-word or 'djaaf-v-imhh' substitutions may have occurreddue to the inherent [...] created with voice recognitionsoftware. Occasional wrong-word or 'pvxha-x-lzkz' substitutions may have occurreddue to the inherent [...] Hudson Turner M.D. MM T: Report ID: [id number] Reading Location: [id number] [place] Kaelyn Ansari MD IMG CT PROCEDURES [...] Sixto Hopkins M.D. AR T: Report ID: [id number] Reading Location: [id number] Procedure Note Sixto Hopkins MD - 08/31/2024 [...] Sixto Hopkins M.D. AR T: Report ID: [id number] Reading Location: [id number] [place] Kaelyn Ansari MD IMG XR PROCEDURES [...] Sixto Hopkins M.D. AR T: Report ID: [id number] Reading Location: [id number] Procedure Note Sixto Hopkins MD - 08/31/2024 [...] Sixto Hopkins M.D. AR T: Report ID: [id number] Reading Location: [id number] [place] Kaelyn Ansari MD IMG XR PROCEDURES Final Result * (ABNORMAL) Hemoglobin and hematocrit (08/28/2024 8:29 AM CDT) Hgb 8.2(L) 11.9 - 15.5 g/dL Hct 25.2(L) 35.6 - 45.5 % [facility] Blood 08/28/2024 8:29 AM CDT 08/28/2024 8:51 AM CDT Selena Allan MD LAB BLOOD ORDERABLES Final Result [facility] [address] [facility] Department [place] [address] * (ABNORMAL) eGFR (08/28/2024 5:24 [...] Allan MD LAB BLOOD ORDERABLES Final Result [place] [address] [facility] [place] [address] * (ABNORMAL) Basic metabolic panel (08/28/2024 5:24 AM CDT) [facility] Sodium 139 135 - 145 mmol/L Potassium, pl 3.9 3.3 - 4.9 mmol/L [facility] Chloride 106 97 - 110 mmol/L [facility] CO2 27 22 - 32 mmol/L [facility] Anion gap 6 2 - 15 mmol/L [facility] BUN 33(H) 6 - 25 mg/dL [facility] Creatinine 1.13(H) 0.60 - 1.10 mg/dL [facility] Glucose 104 70 - 199 mg/dL [facility] Comment: Interpretive Data Fasting glucose >/= 126 [...] 2022. Calcium 8.4(L) 8.5 - 10.3 mg/dL [facility] Blood 08/28/2024 5:24 AM CDT 08/28/2024 5:57 AM CDT Selena Allan MD LAB BLOOD ORDERABLES Final Result [place] [address] [facility] Department [place] [address] * (ABNORMAL) eGFR (08/27/2024 3:45 PM CDT) [facility] eGFR 22(L) >=60 mL/min/1. 73 m2 Comment: [...] Allan MD LAB BLOOD ORDERABLES Final Result [facility] [address] [facility] Department [place] [address] * (ABNORMAL) Differential, auto (08/27/2024 3:45 PM CDT) Neutrophil abs 5.7 1.5 - 6.5 K/cumm Imm gran abs 0.0 0.0 - 0.1 K/cumm [facility] Lymphocyte abs 0.9 0.8 - 3.3 K/cumm [facility] Monocyte abs 1.0(H) 0.2 - 0.8 K/cumm [facility] Eosinophil abs 0.1 0.0 - 0.5 K/cumm [facility] Basophil abs 0.0 0.0 - 0.1 K/cumm [facility] Neutrophil pct 74.0 % [facility] Comment: Interpretive Data Percent cell count reference ranges are not reported, since discordance with absolute values may lead to misinterpretation of CBC data. Current Interpretive Data was last revised on 2017. Imm gran pct 0.5 % [facility] Comment: Interpretive Data Percent cell count reference ranges are not reported, since discordance with absolute values may lead to misinterpretation of CBC data. Current Interpretive Data was last revised on 2017. Lymphocyte pct 11.7 % [facility] Comment: Interpretive Data Percent cell count reference ranges are not reported, since discordance with absolute values may lead to misinterpretation of CBC data. Current Interpretive Data was last revised on 2017. Monocyte pct 12.4 % [facility] Comment: Interpretive Data Percent cell count reference ranges are not reported, since discordance with absolute values may lead to misinterpretation of CBC data. Current Interpretive Data was last revised on 2017. Eosinophil pct 1.3 % [facility] Comment: Interpretive Data Percent cell count reference ranges are not reported, since discordance with absolute values may lead to misinterpretation of CBC data. Current Interpretive Data was last revised on 2017. Basophil pct 0.1 % [facility] Comment: Interpretive Data Percent cell count reference ranges are not reported, since discordance with absolute values may lead to misinterpretation of CBC data. Current Interpretive Data was last revised on 2017. Blood 08/27/2024 3:45 PM CDT 08/27/2024 3:58 PM CDT us Selena Allan MD LAB BLOOD ORDERABLES Final Result [facility] [address] [facility] Department [place] [address] * (ABNORMAL) CBC with auto differential (08/27/2024 3:45 PM CDT) WBC 7.8 3.8 - 9.9 K/cumm Hgb 8.5(L) 11.9 - 15.5 g/dL [facility] Hct 27.3(L) 35.6 - 45.5 % [facility] Plt 123(L) 150 - 400 K/cumm [facility] MPV 12.7(H) 9.1 - 12.3 fL [facility] RBC 2.89(L) 3.90 - 5.20 M/cumm [facility] MCV 94.5 81.3 - 96.4 fL [facility] MCH 29.4 27.1 - 33.3 pg [facility] MCHC 31.1(L) 32.3 - 35.7 g/dL [facility] RDW CV 14.2 11.1 - 14.9 % [facility] RDW SD 48.7(H) 35.7 - 48.1 fL [facility] NRBC abs 0.00 0.00 - 0.01 K/cumm [facility] Blood 08/27/2024 3:45 PM CDT 08/27/2024 3:58 PM CDT Selena Allan MD LAB BLOOD ORDERABLES Final Result [facility] [address] [facility] Department [place] [address] * (ABNORMAL) Comprehensive metabolic panel (08/27/2024 3:45 PM CDT) Sodium 136 135 - 145 mmol/L Potassium, pl 4.0 3.3 - 4.9 mmol/L [facility] Chloride 103 97 - 110 mmol/L [facility] CO2 21(L) 22 - 32 mmol/L [facility] Anion gap 12 2 - 15 mmol/L [facility] BUN 39(H) 6 - 25 mg/dL [facility] Creatinine 2.16(H) 0.60 - 1.10 mg/dL [facility] Glucose 120 70 - 199 mg/dL [facility] Comment: Interpretive Data Fasting glucose >/= 126 [...] 2022. Calcium 8.1(L) 8.5 - 10.3 mg/dL [facility] Bilirubin, total 0.7 0.1 - 1.2 mg/dL [facility] Protein, pl 5.4(L) 6.5 - 8.5 g/dL [facility] Albumin 2.9(L) 3.5 - 5.0 g/dL [facility] Alk phos 54 40 - 130 Units/L [facility] ALT 11 7 - 45 Units/L [facility] AST 25 10 - 45 Units/L [facility] Blood 08/27/2024 3:45 PM CDT 08/27/2024 3:58 PM CDT Selena Allan MD LAB BLOOD ORDERABLES Final Result Performing Organization Address City/[facility]/ZIP Co de Phone Number CRIS [address] [place] [address] * (ABNORMAL) CBC without differential (08/26/2024 10:41 AM CDT) [facility] WBC 8.1 3.8 - 9.9 K/cumm Hgb 9.1(L) 11.9 - 15.5 g/dL [facility] Hct 29.5(L) 35.6 - 45.5 % [facility] Plt 124(L) 150 - 400 K/cumm [facility] MPV 12.9(H) 9.1 - 12.3 fL [facility] RBC 3.07(L) 3.90 - 5.20 M/cumm [facility] MCV 96.1 81.3 - 96.4 fL [facility] MCH 29.6 27.1 - 33.3 pg [facility] MCHC 30.8(L) 32.3 - 35.7 g/dL [facility] RDW CV 14.0 11.1 - 14.9 % [facility] RDW SD 49.1(H) 35.7 - 48.1 fL [facility] NRBC abs 0.00 0.00 - 0.01 K/cumm [facility] Blood 08/26/2024 10:4 1 AM CDT 08/26/2024 11:20 AM CDT Selena Allan MD LAB BLOOD ORDERABLES Final Result Performing Organization Address City/[facility]/ZIP Co de Phone Number CRIS [address] [place] [address] * (ABNORMAL) eGFR (08/26/2024 7:52 AM CDT) Pathologist [facility] eGFR 52(L) >=60 mL/min/1. 73 m2 Comment: [...] Allan MD LAB BLOOD ORDERABLES Final Result [facility] [address] [facility] Department [place] [address] * (ABNORMAL) Basic metabolic panel (08/26/2024 7:52 AM CDT) [facility] Sodium 137 135 - 145 mmol/L Potassium, pl 4.4 3.3 - 4.9 mmol/L [facility] Comment:Hemolyzed; Potassium value may be falsely elevated by as much as 1.0 mmol/L. Suggest redraw and reanalysis. Chloride 104 97 - 110 mmol/L [facility] CO2 22 22 - 32 mmol/L [facility] Anion gap 11 2 - 15 mmol/L [facility] BUN 22 6 - 25 mg/dL [facility] Creatinine 1.06 0.60 - 1.10 mg/dL [facility] Glucose 102 70 - 199 mg/dL [facility] Comment: Interpretive Data Fasting glucose >/= 126 [...] 2022. Calcium 8.0(L) 8.5 - 10.3 mg/dL [facility] Blood 08/26/2024 7:52 AM CDT 08/26/2024 7:59 AM CDT Selena Allan MD LAB BLOOD ORDERABLES Final Result [facility] [address] [facility] Department [place] [address] * (ABNORMAL) Differential, auto (08/25/2024 5:15 PM CDT) Neutrophil abs 13.3(H) 1.5 - 6.5 K/cumm Imm gran abs 0.1 0.0 - 0.1 K/cumm [facility] Lymphocyte abs 0.6(L) 0.8 - 3.3 K/cumm [facility] Monocyte abs 0.8 0.2 - 0.8 K/cumm [facility] Eosinophil abs 0.0 0.0 - 0.5 K/cumm [facility] Basophil abs 0.0 0.0 - 0.1 K/cumm [facility] Neutrophil pct 90.1 % [facility] Comment: Interpretive Data Percent cell count reference ranges are not reported, since discordance with absolute values may lead to misinterpretation of CBC data. Current Interpretive Data was last revised on 2017. Imm gran pct 0.3 % [facility] Comment: Interpretive Data Percent cell count reference ranges are not reported, since discordance with absolute values may lead to misinterpretation of CBC data. Current Interpretive Data was last revised on 2017. Lymphocyte pct 4.1 % [facility] Comment: Interpretive Data Percent cell count reference ranges are not reported, since discordance with absolute values may lead to misinterpretation of CBC data. Current Interpretive Data was last revised on 2017. Monocyte pct 5.3 % [facility] Comment: Interpretive Data Percent cell count reference ranges are not reported, since discordance with absolute values may lead to misinterpretation of CBC data. Current Interpretive Data was last revised on 2017. Eosinophil pct 0.1 % [facility] Comment: Interpretive Data Percent cell count reference ranges are not reported, since discordance with absolute values may lead to misinterpretation of CBC data. Current Interpretive Data was last revised on 2017. Basophil pct 0.1 % [facility] Comment: Interpretive Data Percent cell count reference ranges are not reported, since discordance with absolute values may lead to misinterpretation of CBC data. Current Interpretive Data was last revised on 2017. Blood 08/25/2024 5:15 PM CDT 08/25/2024 5:35 PM CDT Selena Allan MD LAB BLOOD ORDERABLES Final Result [facility] [address] [facility] Department [place] [address] * (ABNORMAL) CBC with auto differential (08/25/2024 5:15 PM CDT) WBC 14.8(H) 3.8 - 9.9 K/cumm Hgb 10.7(L) 11.9 - 15.5 g/dL [facility] Hct 34.3(L) 35.6 - 45.5 % [facility] Plt 172 150 - 400 K/cumm [facility] MPV 12.8(H) 9.1 - 12.3 fL [facility] RBC 3.68(L) 3.90 - 5.20 M/cumm [facility] MCV 93.2 81.3 - 96.4 fL [facility] MCH 29.1 27.1 - 33.3 pg [facility] MCHC 31.2(L) 32.3 - 35.7 g/dL [facility] RDW CV 13.7 11.1 - 14.9 % [facility] RDW SD 46.9 35.7 - 48.1 fL [facility] NRBC abs 0.00 0.00 - 0.01 K/cumm [facility] Blood 08/25/2024 5:15 PM CDT 08/25/2024 5:35 PM CDT us Selena Allan MD LAB BLOOD ORDERABLES Final Result [facility] [address] [facility] Department [place] [address] * XR Hip Right 2 or 3 [...] immediate complication. No acute fracture or dislocation. 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 Degeneration of the bilateral sacroiliac joints. SOFT TISSUES: Unremarkable. OTHER: No significant finding. 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 THIS IS AN ELECTRONICALLY VERIFIED FINAL REPORT 08/25/2024 1:06 PM - Electronically signed by Shamar Harkins M.D. T: Report ID: [id number] Reading Location: [id number] Procedure Note Shamar Harkins DO - 08/25/2024 [...] immediate complication. No acute fracture or dislocation. 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 Degeneration of the bilateral sacroiliac joints. SOFT TISSUES: Unremarkable. OTHER: No significant finding. 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 THIS IS AN ELECTRONICALLY VERIFIED FINAL REPORT 08/25/2024 1:06 PM - Electronically signed by Shamar Harkins M.D. T: Report ID: [id number] Reading Location: [place] [address] Luiza JAMESON IMG XR PROCEDURES Final Re sult * [place] AN ELECTIVE ENDOTRACHEAL AIRWAY, [place] AN PROCEDURE PLACEHOLDER (08/25/2024 10:36 AM CDT) [...] ur Yellow Yellow Clarity, ur Clear Clear [facility] Specific gravity, ur 1.022 1.003 - 1.030 [facility] pH, urine 7.0 [facility] Comment: Interpretive Data U rine pH is affected by diet, medications, systemic acid-base disturbances, and renal tubular function. pH may affect urinary stone formation. For example, urine pH below 6.0 may help reduce the tendency for calcium phosphate stones and pH greater than 6.0 may reduce the tendency for uric acid stone formation. Source: [facility] Current Interpretive Data was last revised on 2017 Protein, ur ql Negative Negative [facility] Glucose, ur ql Negative Negative [facility] Ketones, ur Trace Negative [facility] Bilirubin, ur Negative Negative [facility] Blood, ur Negative Negative [facility] Urobilinogen, ur 2.0(A) <2.0 mg/dL [facility] Nitrite, ur Negative Negative [facility] Leukocyte esterase, ur Negative Negative [facility] UA reflex comment Reflex conditions for microscopic UA and culture not met. [facility] 08/25/2024 6:59 AM CDT 08/25/2024 7:20 AM CDT Gino Amanda MD LAB MICROBIOLOGY - G ENERAL ORDERABLES Final Result [facility] [address] [facility] Department [place] [address] * CT Pelvis WO Contrast (08/24/2024 9:50 PM MEMORIAL DESIGNER) Anatomical Region Laterality Modality Body N/A Computed Tomogra phy 08/24/2024 10:3 2 PM MEMORIAL DESIGNER Narrative 08/24/2024 10:35 PM MEMORIAL DESIGNER EXAM DESCRIPTION: CT PELVIS WO CONTRAST REASON FOR STUDY: Hip trauma, fracture suspected, xray done Patient BIBEMS from [facility] with complaints of fall. EMS reports [...] signed by Sixto MELENDREZ T: Report ID: [id number] Reading Location: [id number] Procedure Note Sixto Hopkins MD - 08/24/2024 EXAM DESCRIPTION: CT PELVIS WO CONTRAST REASON FOR STUDY: Hip trauma, fracture suspected, xray done Patient BIBEMS from [facility] with complaints of fall. EMS reports [...] signed by Sixto MELENDREZ T: Report ID: [id number] Reading Location: [place] [address] PROCEDURES Final Re sult * CT Cervical Spine WO Contrast (08/24/2024 8:18 PM MEMORIAL DESIGNER) Anatomical Region Laterality Modality Spine N/A Computed Tomogra phy 08/24/2024 8:31 PM MEMORIAL DESIGNER Narrative 08/24/2024 8:32 PM MEMORIAL DESIGNER EXAM DESCRIPTION: CT CERVICAL SPINE WO CONTRAST [...] signed by Sixto MELENDREZ T: Report ID: [id number] Reading Location: [id number] Procedure Note Sixto Hopkins MD - 08/24/2024 [...] signed by Sixto MELENDREZ T: Report ID: [id number] Reading Location: [id number] Kellie JAMESON [facility] CT PROCEDURES Final Result * CT Head WO Contrast (08/24/2024 8:18 PM MEMORIAL DESIGNER) Anatomical Region Laterality Modality Head and Neck N/A Computed Tomogra phy 08/24/2024 8:33 PM MEMORIAL DESIGNER Narrative 08/24/2024 8:34 PM MEMORIAL DESIGNER EXAM DESCRIPTION: CT HEAD WO CONTRAST REASON [...] signed by Sixto MELENDREZ T: Report ID: [id number] Reading Location: [place] [address] Procedure Note Sixto Hopkins MD - 08/24/2024 [...] signed by Sixto MELENDREZ T: Report ID: [id number] Reading Location: [place] [address] Kellie Rodriguez GISELL IMG [address] PROCEDURES Final Result * Differential, auto (08/24/2024 7:53 PM MEMORIAL DESIGNER) Pathologist [facility] Neutrophil abs 4.9 1.5 - 6.5 K/cumm Imm gran abs 0.0 0.0 - 0.1 K/cumm [facility] Lymphocyte abs 1.2 0.8 - 3.3 K/cumm [facility] Monocyte abs 0.6 0.2 - 0.8 K/cumm [facility] Eosinophil abs 0.1 0.0 - 0.5 K/cumm [facility] Basophil abs 0.0 0.0 - 0.1 K/cumm [facility] Neutrophil pct 72.7 % [facility] Comment: Interpretive Data Percent cell count reference ranges are not reported, since discordance with absolute values may lead to misinterpretation of CBC data. Current Interpretive Data was last revised on 2017. Imm gran pct 0.4 % [facility] Comment: Interpretive Data Percent cell count reference ranges are not reported, since discordance with absolute values may lead to misinterpretation of CBC data. Current Interpretive Data was last revised on 2017. Lymphocyte pct 17.9 % [facility] Comment: Interpretive Data Percent cell count reference ranges are not reported, since discordance with absolute values may lead to misinterpretation of CBC data. Current Interpretive Data was last revised on 2017. Monocyte pct 8.2 % [facility] Comment: Interpretive Data Percent cell count reference ranges are not reported, since discordance with absolute values may lead to misinterpretation of CBC data. Current Interpretive Data was last revised on 2017. Eosinophil pct 0.7 % [facility] Comment: Interpretive Data Percent cell count reference ranges are not reported, since discordance with absolute values may lead to misinterpretation of CBC data. Current Interpretive Data was last revised on 2017. Basophil pct 0.1 % [facility] Comment: Interpretive Data Percent cell count reference ranges are not reported, since discordance with absolute values may lead to misinterpretation of CBC data. Current Interpretive Data was last revised on 2017. Blood 08/24/2024 7:53 PM MEMORIAL DESIGNER 08/24/2024 8:00 PM MEMORIAL DESIGNER Kellie JAMESON LAB BLOOD ORDERABLES Final Resu lt Performing Organization Address City/[facility] Co de Phone Number [facility] [address] [place] [employer] [place] [address] * (ABNORMAL) CBC with auto differential (08/24/2024 7:53 PM MEMORIAL DESIGNER) [facility] WBC 6.8 3.8 - 9.9 K/cumm Hgb 12.8 11.9 - 15.5 g/dL [facility] Hct 38.9 35.6 - 45.5 % [facility] Plt 138(L) 150 - 400 K/cumm [facility] MPV 11.9 9.1 - 12.3 fL [facility] RBC 4.39 3.90 - 5.20 M/cumm [facility] MCV 88.6 81.3 - 96.4 fL [facility] MCH 29.2 27.1 - 33.3 pg [facility] MCHC 32.9 32.3 - 35.7 g/dL [facility] RDW CV 13.7 11.1 - 14.9 % [facility] RDW SD 44.6 35.7 - 48.1 fL [facility] NRBC abs 0.00 0.00 - 0.01 K/cumm [facility] Blood 08/24/2024 7:53 PM MEMORIAL DESIGNER 08/24/2024 8:00 PM MEMORIAL DESIGNER Kellie JAMESNO LAB BLOOD ORDERABLES Final Resu lt Performing Organization Address [facility]/ZIP Co de Phone Number [facility] [address] [place] [address] * XR Hip Right 2 or 3 Views (08/24/2024 7:52 PM MEMORIAL DESIGNER) Anatomical Region Laterality Modality Lower Extremities, Hip, Pelvis Right C omputed Radiography 08/24/2024 8:30 PM MEMORIAL DESIGNER Narrative 08/24/2024 8:31 PM MEMORIAL DESIGNER EXAM DESCRIPTION: XR HIP RIGHT 2 OR 3 VIEWS REASON FOR STUDY: trauma, concern for fracture Patient BIBEMS from [facility] with complaints of fall. EMS reports [...] signed by Sixto MELENDREZ T: Report ID: [id number] Reading Location: [id number] Procedure Note Sixto Hopkins MD - 08/24/2024 EXAM DESCRIPTION: XR HIP RIGHT 2 OR 3 VIEWS REASON FOR STUDY: trauma, concern for fracture Patient BIBEMS from [facility] with complaints of fall. EMS reports [...] signed by Sixto MELENDREZ T: Report ID: [id number] Reading Location: [id number] us Kellie JAMESON IMG XR PROCEDURES Final Result * eGFR (08/24/2024 7:24 PM MEMORIAL DESIGNER) eGFR 62 >=60 mL/min/1. 73 m2 Comment: [...] last reviewed 2021. Blood 08/24/2024 7:24 PM MEMORIAL DESIGNER 08/24/2024 7:25 PM MEMORIAL DESIGNER us Kellie JAMESON LAB BLOOD ORDERABLES Final Resu lt [facility] [address] [facility] [place] [address] * Comprehensive metabolic panel (08/24/2024 7:24 PM MEMORIAL DESIGNER) Sodium 141 135 - 145 mmol/L Potassium, pl 4.5 3.3 - 4.9 mmol/L [facility] Comment:Hemolyzed; Potassium value may be falsely elevated by as much as 1.0 mmol/L. Suggest redraw and reanalysis. Chloride 104 97 - 110 mmol/L [facility] CO2 27 22 - 32 mmol/L [facility] Anion gap 10 2 - 15 mmol/L [facility] BUN 16 6 - 25 mg/dL [facility] Creatinine 0.91 0.60 - 1.10 mg/dL [facility] Glucose 158 70 - 199 mg/dL [facility] Comment: Interpretive Data Fasting glucose >/= 126 [...] 2022. Calcium 10.0 8.5 - 10.3 mg/dL [facility] Bilirubin, total 1.0 0.1 - 1.2 mg/dL [facility] Protein, pl 7.8 6.5 - 8.5 g/dL [facility] Albumin 4.4 3.5 - 5.0 g/dL [facility] Alk phos 79 40 - 130 Units/L [facility] ALT 32 7 - 45 Units/L [facility] AST See Comment 10 - 45 [facility] Comment:Credited; Hemolyzed Specimen Blood 08/24/2024 7:24 PM MEMORIAL DESIGNER 08/24/2024 7:25 PM MEMORIAL DESIGNER us Kellie JAMESON LAB BLOOD ORDERABLES Final Resu lt Performing Organization Address City/State/[facility] Co de Phone Number [facility] [address] [facility] [place] [address] from Last 3 Months Insurance [address] [place] [id number] [address] SENIOR SUPPLEMENT MEDICARE MEDICARE [employer] SENIOR SUPPLEMENT Advance Directives For more information, please contact: [phone] Documents on File Type Date Recorded Patient Interactive Multimedia Designer Expl anation ADVANCE DIRECTIVE 08/29/2024 1:15 PM POLST - Phys Order for PT Preferences ADVANCE DIRECTIVE 08/29/2024 1:15 PM Power of Associate Program Manager-Medical * LIMITED - No CPR (Latest Code Status on File) Date Activated Date Inactivated Comments 08/25/2024 5:17 AM 08/28/2024 4:30 PM Question Answer Comments Provide aggressive medical m anagement before a full cardiopulmonary arrest occurs. Use antibiotics, IV Fluids, and medical treatment unless specifically selected below: No intubation Care Teams Staff Climate Scientist Relationship Specialty Start Date End Date Lukas Herrera MD [address] [place] [address] PCP - General Internal Medicine 09/23/24 Luiza Gibbs PA [address] [facility] [address] [address] Orthopedic Surgery 08/27/24
[2024-11-15 05:27] VITALS: O2SAT 100
[2024-11-15 06:00] VITALS: BP 147/64; PULSE 82; RESP 12; TEMP 36.2; O2SAT 100
--- NOTE | 2024-11-15 06:05 | ADMGEN ---
This patient, Paty Cristina, was admitted to [facility] Surg Room 319-01. Patient/family oriented to hospital policies and general routines including ID bracelet, bed and alarms, visiting hours, pain management, procedures, bathroom and other care routines, personal items, smoking policy, room service/diet, and visiting hours. Information on how to activate the Rapid Response Team has been discussed. Patient/Family are encouraged to report perceived risks to care and to ask questions if they do not understand what they are told or what they should do.
[2024-11-15] MEDS: MORPHINE 50 MG/NS 100ML (*CRX) 50 MG/100 ML BAG IV CONT ×2 (06:38→16:50)
[2024-11-15 06:43] VITALS: BMI 17.1
[2024-11-15] MEDS: LORazepam INJ (*CRX) 2 MG/ML VIAL 1 MG IV PUSH ×2 (10:15→23:10)
[2024-11-15 14:10] VITALS: BP 135/51; PULSE 75; RESP 6; O2SAT 100
--- NOTE | 2024-11-15 18:12 | P.HP_ITS ---
H&P: HPI History of Present Illness Date/Time: 11/15/24 18:12 Chief Complaint: Uncontrolled pain and confusion and shortness of breath Narrative: 84-year-old female resident of memory care unit was brought the emergency department because of increased confusion. She was oriented to person only which was unusual for her. She had fallen multiple times in the recent past. Evaluation in the emergency room showed a tension hemopneumothorax on the left. Needle decompression was performed. She continued to have pain. Her her oxygen saturation was 86% upon presentation to the emergency department. Because of her dementia and recent decline and for quality of life with multiple falls in pain her family opted for inpatient hospice service for symptom management. [facility] Past Medical History Medical History Hypothyroidism Hyperlipidemia Hypertension Surgical History Surgical History History of hysterectomy History of left knee replacement Family History Family History Sibling Cancer Father Cancer Mother Dementia Social History Social History (Updated 11/15/24 @ 18:15 by Ceasar Ortez MD) Social History: The patient lives in [facility]. 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 Lifelong nonsmoker. No alcoho l or illicit substance abuse. She designates her daughter, Queta Baxter, as her surrogate decision maker. Code status: DNR. Spiritual care concerns: No Meds Home Medications and Allergies Home Medications ?Medication ?Instructions ?Recorded ?Confirmed ?Type No Home Medications 11/15/24 11/15/24 History Allergies Allergy/AdvReac Type Severity Reaction Status Date / Time codeine Allergy Unconscious Verified 03/07/22 03:55 Vital Signs Vital Signs - 24 hr 11/15/24 05:27 11/15/24 06:00 11/15/24 08:00 Temperature 97.1 F L Pulse Rate 82 Respiratory Rate 12 Blood Pressure 147/64 H Pulse Oximetry 100 100 Oxygen Delivery Non-Rebreather Mask Nasal Cannula Oxygen Flow Rate 15 3 11/15/24 14:10 Temperature Pulse Rate 75 Respiratory Rate 6 L Blood Pressure 135/51 L Pulse Oximetry 100 Oxygen Delivery Oxygen Flow Rate Exam Narrative: HEENT: PERRL, sclerae nonicteric, pharyngeal mucosa pink and intact NECK: No JVD, adenopathy, or thyromegaly CHEST: Clear to auscultation. Normal effort HEART: NL S1/S2, regular, no murmur ABDOMEN: BS hypoactive, soft, nontender EXTREMITIES: No cyanosis, edema, or clubbing NEUROLOGIC: CN intact and symmetric to inspection MUSCULOSKELETAL: No gross deformity to visual inspection PSYCH: Alert. Oriented to person only. Does not follow commands. Speech mostly intelligible. Confabulates. Assessment and Plan Assessment and plan (1) Hospice care: Code(s): Z51.5 - Encounter for palliative care Status: Acute Assessment and Plan: * Meets inpatient hospice criteria due to requiring continuous IV morphine for control of pain and dyspnea * P.r.n. palliative regimen ordered * 11/15/2024 Discussed care and prognosis with family at bedside (2) Fracture of multiple ribs of left side: Code(s): S22.42XA - Multiple fractures of ribs, left side, initial encounter for closed fracture Status: Acute (3) Hemothorax on left: Code(s): J94.2 - Hemothorax Status: Acute (4) Pneumothorax on left: Code(s): J93.9 - Pneumothorax, unspecified Status: Acute (5) Tension pneumothorax: Code(s): J93.0 - Spontaneous tension pneumothorax Status: Acute
[2024-11-15 20:00] VITALS: BP 127/62; PULSE 97; RESP 18; TEMP 36.2; O2SAT 98
[2024-11-16 08:00] VITALS: BP 134/66; PULSE 94; RESP 16; TEMP 36.7; O2SAT 94; O2SAT 98
--- NOTE | 2024-11-16 13:53 | WPDPN ---
Progress Note: A&P Assessment and Plan (1) Hospice care: Code(s): Z51.5 - Encounter for palliative care Status: Acute Assessment and Plan: Continues on a morphine drip at 1 mg/hour. Comfortable at rest, but staff has been encouraged to provide prn ativan and or morphine with care as she does get agitated. Discussed with her son at bedside. Consider a trial of po medications tomorrow if she remains stable. She is on 4 L oxygen, has a large pneumothorax (70%) on the left. Subjective Date/time seen: 11/16/24 13:53 Interval history: Ms Cristina is on [facility] following a fall with resultant rib fractures and hemopheumothorax. She has advanced dementia and plan is for her to be kept comfortable. She is on a morphine drip which has been effective for pain control. SHe does get agitated with care and would benefit from her prn ativan being given, staff and family educated regarding that. She was awake when I visited her, alert and interactive and talking nonsensically. Her son was at her bedside, she thinks he is her brother currently. She denies pain at rest. She has not shown interest in eating or drinking. Exam Const: General: cooperative, comfortable, no acute distress, alert and awake Orientation/consciousness: confusion HENMT: Head: normal to inspection Resp: Effort & Inspection: normal respiratory effort and able to speak in complete sentences Neuro: Other: A & O & 0-1 Objective Data Vital Signs Vital Signs: Vital Signs - 24 hr 11/15/24 14:10 11/15/24 20:00 11/15/24 20:00 Temperature 36.2 C L Pulse Rate 75 97 97 Respiratory Rate 6 L 18 18 Blood Pressure 135/51 L 127/62 Pulse Oximetry 100 98 98 Oxygen Delivery Nasal Cannula Oxygen Flow Rate 3 11/16/24 08:00 11/16/24 08:00 Temperature 36.7 C Pulse Rate 94 Respiratory Rate 16 Blood Pressure 134/66 Pulse Oximetry 94 98 Oxygen Delivery Nasal Cannula Oxygen Flow Rate 3 Intake/Output Intake/Output: Intake & Output 11/13/24 11/14/24 11/15/24 11/16/24 23:59 23:59 23:59 23:59 Intake Total 0 Output Total 200 Balance 0 -200 Meds/Results Medications: Active Medications Generic Name Dose Route Start Last Admin Trade Name Freq PRN Reason Stop Dose Admin Acetaminophen 1,000 mg 11/15/24 06:58 Acetaminophen 500 Mg Tablet PO TID PRN Mild Pain (1-3) or Fever Artificial Tears 1 drop 11/15/24 07:05 Artificial Tears Ophth Soln 15 Ml Bottle EACH EYE Q4H PRN Dry Eye(s) Bisacodyl 10 mg 11/15/24 06:57 Bisacodyl 10 Mg Suppository RECTAL DAILY PRN Constipation Glycopyrrolate 0.1 mg 11/15/24 06:55 Glycopyrrolate Inj (*Sp) 0.2 Mg/Ml Vial IV PUSH Q4H PRN secretions Morphine Sulfate 50 mg in 100 mls @ 2 mls/hr 11/15/24 17:00 11/15/24 16:50 IV CONT 1 mg/hr .Q24H CAROLYNE 2 mls/hr Administration 1 MG/HR Lorazepam 1 mg 11/15/24 06:48 11/15/24 23:10 Lorazepam Inj (*Crx) 2 Mg/Ml Vial IV PUSH 1 mg Q4H PRN Administration Anxiety or air hunger Morphine Sulfate 2 mg 11/15/24 06:48 Morphine Sulfate (*Crx) 2 Mg/Ml Inj IV PUSH Q2H PRN pain, dyspnea, restlessness Prochlorperazine Edisylate 10 mg 11/15/24 06:56 Prochlorperazine Edisylate 10 Mg/2 Ml Vial IV PUSH Q6H PRN Nausea And Vomiting
[2024-11-16] MEDS: MORPHINE SULFATE (*CRX) 2 MG/ML INJ IV PUSH (14:08)
[2024-11-16] MEDS: MORPHINE 50 MG/NS 100ML (*CRX) 50 MG/100 ML BAG IV CONT (17:15)
[2024-11-16] MEDS: LORazepam INJ (*CRX) 2 MG/ML VIAL 1 MG IV PUSH (18:46)
--- NOTE | 2024-11-16 19:46 | PC.NURSE ---
On 11/16/24, the [employer], [ Sandra Buck], provided care and completed [facility] documentation on this patient. I have reviewed the [employer]'s documentation and agree with the findings.
[2024-11-16 20:00] VITALS: BP 126/68; PULSE 94; RESP 18; TEMP 36.2; O2SAT 94
[2024-11-17 08:00] VITALS: BP 139/75; PULSE 96; RESP 16; TEMP 36.7; O2SAT 95
[2024-11-17] MEDS: LORazepam INJ (*CRX) 2 MG/ML VIAL 1 MG IV PUSH ×2 (11:27→20:50)
[2024-11-17] MEDS: MORPHINE 50 MG/NS 100ML (*CRX) 50 MG/100 ML BAG IV CONT (17:01)
--- NOTE | 2024-11-17 19:25 | P.PNIM_ITS ---
Progress Note: A&P Assessment and Plan (1) Hospice care: Code(s): Z51.5 - Encounter for palliative care Status: Acute Assessment and Plan: * Meets inpatient hospice criteria due to requiring continuous IV morphine for control of pain and dyspnea * P.r.n. palliative regimen ordered * 11/15/2024 Discussed care and prognosis with family at bedside * 11/17/2024 Required PRN Ativan earlier today. Now unresponsive with apneas lasting 10-15 seconds. Seems to be declining rapidly. Discussed care and prognosis with son at bedside. (2) Fracture of multiple ribs of left side: Code(s): S22.42XA - Multiple fractures of ribs, left side, initial encounter for closed fracture Status: Inactive (3) Hemothorax on left: Code(s): J94.2 - Hemothorax Status: Inactive (4) Pneumothorax on left: Code(s): J93.9 - Pneumothorax, unspecified Status: Inactive (5) Tension pneumothorax: Code(s): J93.0 - Spontaneous tension pneumothorax Status: Inactive Subjective Date/time seen: 11/17/24 19:25 Interval history: Now unresponsive Review of Systems Review of Systems: ROS unobtainable: Yes unobtainable due to medical condition Exam Narrative: HEENT: PERRL, sclerae nonicteric, pharyngeal mucosa pink and intact NECK: No JVD, adenopathy, or thyromegaly CHEST: Decreased breath sounds left chest with normal effort HEART: NL S1/S2, regular, no murmur ABDOMEN: BS hypoactive, soft, nontender EXTREMITIES: No cyanosis, edema, or clubbing NEUROLOGIC: CN intact and symmetric to inspection MUSCULOSKELETAL: No gross deformity to visual inspection PSYCH: Unresponsive to verbal or tactile stimuli Objective Data Vital Signs Vital Signs: Vital Signs - 24 hr 11/16/24 20:00 11/16/24 20:00 11/17/24 08:00 Temperature 97.1 F L 98.1 F Pulse Rate 94 96 Respiratory Rate 18 16 Blood Pressure 126/68 139/75 Pulse Oximetry 94 94 95 Oxygen Delivery Nasal Cannula Oxygen Flow Rate 3 11/17/24 08:15 11/17/24 08:41 Temperature Pulse Rate Respiratory Rate Blood Pressure Pulse Oximetry Oxygen Delivery Nasal Cannula Nasal Cannula Oxygen Flow Rate 3 3 Intake/Output Intake/Output: Intake & Output 11/14/24 11/15/24 11/16/24 11/17/24 23:59 23:59 23:59 23:59 Intake Total 0 48.8 47.5 Output Total 550 200 Balance 0 -501.2 -152.5 Meds/Results Medications: Active Medications Generic Name Dose Route Start Last Admin Trade Name Freq PRN Reason Stop Dose Admin Acetaminophen 1,000 mg 11/15/24 06:58 Acetaminophen 500 Mg Tablet PO TID PRN Mild Pain (1-3) or Fever Artificial Tears 1 drop 11/15/24 07:05 Artificial Tears Ophth Soln 15 Ml Bottle EACH EYE Q4H PRN Dry Eye(s) Bisacodyl 10 mg 11/15/24 06:57 Bisacodyl 10 Mg Suppository RECTAL DAILY PRN Constipation Glycopyrrolate 0.1 mg 11/15/24 06:55 Glycopyrrolate Inj (*Sp) 0.2 Mg/Ml Vial IV PUSH Q4H PRN secretions Morphine Sulfate 50 mg in 100 mls @ 2 mls/hr 11/15/24 17:00 11/17/24 17:01 IV CONT 1 mg/hr .Q24H CAROLYNE 2 mls/hr Administration 1 MG/HR Lorazepam 1 mg 11/15/24 06:48 11/17/24 11:27 Lorazepam Inj (*Crx) 2 Mg/Ml Vial IV PUSH 1 mg Q4H PRN Administration Anxiety or air hunger Morphine Sulfate 2 mg 11/15/24 06:48 11/16/24 14:08 Morphine Sulfate (*Crx) 2 Mg/Ml Inj IV PUSH 2 mg Q2H PRN Administration pain, dyspnea, restlessness Prochlorperazine Edisylate 10 mg 11/15/24 06:56 Prochlorperazine Edisylate 10 Mg/2 Ml Vial IV PUSH Q6H PRN Nausea And Vomiting
[2024-11-17 20:00] VITALS: BP 131/61; PULSE 98; RESP 18; TEMP 36.9; O2SAT 94
[2024-11-18 08:00] VITALS: BP 134/84; PULSE 98; RESP 18; TEMP 36.7; O2SAT 95
[2024-11-18] MEDS: LORazepam INJ (*CRX) 2 MG/ML VIAL 1 MG IV PUSH ×2 (09:27→17:29)
[2024-11-18] MEDS: MORPHINE SULFATE (*CRX) 2 MG/ML INJ IV PUSH ×2 (09:27→17:21)
[2024-11-18 15:45] VITALS: BP 116/56
--- NOTE | 2024-11-18 16:52 | P.PNIM_ITS ---
Progress Note: A&P Assessment and Plan (1) Hospice care: Code(s): Z51.5 - Encounter for palliative care Status: Acute Assessment and Plan: * Meets inpatient hospice criteria due to requiring continuous IV morphine for control of pain and dyspnea * P.r.n. palliative regimen ordered * 11/15/2024 Discussed care and prognosis with family at bedside * 11/17/2024 Required PRN Ativan earlier today. Now unresponsive with apneas lasting 10-15 seconds. Seems to be declining rapidly. Discussed care and prognosis with son at bedside. * 11/18/2024 Required PRN Ativan earlier today. Remains unresponsive with respirations now about 4 per minute and BP trending down. Discussed with son at bedside. (2) Fracture of multiple ribs of left side: Code(s): S22.42XA - Multiple fractures of ribs, left side, initial encounter for closed fracture Status: Inactive (3) Hemothorax on left: Code(s): J94.2 - Hemothorax Status: Inactive (4) Pneumothorax on left: Code(s): J93.9 - Pneumothorax, unspecified Status: Inactive (5) Tension pneumothorax: Code(s): J93.0 - Spontaneous tension pneumothorax Status: Inactive Subjective Date/time seen: 11/18/24 16:52 Interval history: Required PRN dosing x 1 earlier today. Review of Systems Review of Systems: ROS unobtainable: Yes unobtainable due to medical condition Exam Narrative: HEENT: PERRL, sclerae nonicteric, pharyngeal mucosa pink and intact NECK: No JVD, adenopathy, or thyromegaly CHEST: Decreased breath sounds left chest with normal effort HEART: NL S1/S2, regular, no murmur ABDOMEN: BS hypoactive, soft, nontender EXTREMITIES: No cyanosis, edema, or clubbing NEUROLOGIC: CN intact and symmetric to inspection MUSCULOSKELETAL: No gross deformity to visual inspection PSYCH: Unresponsive to verbal or tactile stimuli Objective Data Vital Signs Vital Signs: Vital Signs - 24 hr 11/17/24 20:00 11/18/24 08:00 11/18/24 08:00 Temperature 98.4 F 98.0 F Pulse Rate 98 98 Respiratory Rate 18 18 Blood Pressure 131/61 134/84 Pulse Oximetry 94 95 Oxygen Delivery Nasal Cannula Oxygen Flow Rate 3 11/18/24 15:45 Temperature Pulse Rate Respiratory Rate Blood Pressure 116/56 L Pulse Oximetry Oxygen Delivery Oxygen Flow Rate Intake/Output Intake/Output: Intake & Output 11/15/24 11/16/24 11/17/24 11/18/24 23:59 23:59 23:59 23:59 Intake Total 0 48.8 47.5 0 Output Total 550 200 200 Balance 0 -501.2 -152.5 -200 Meds/Results Medications: Active Medications Generic Name Dose Route Start Last Admin Trade Name Freq PRN Reason Stop Dose Admin Acetaminophen 1,000 mg 11/15/24 06:58 Acetaminophen 500 Mg Tablet PO TID PRN Mild Pain (1-3) or Fever Artificial Tears 1 drop 11/15/24 07:05 Artificial Tears Ophth Soln 15 Ml Bottle EACH EYE Q4H PRN Dry Eye(s) Bisacodyl 10 mg 11/15/24 06:57 Bisacodyl 10 Mg Suppository RECTAL DAILY PRN Constipation Glycopyrrolate 0.1 mg 11/15/24 06:55 Glycopyrrolate Inj (*Sp) 0.2 Mg/Ml Vial IV PUSH Q4H PRN secretions Morphine Sulfate 50 mg in 100 mls @ 2 mls/hr 11/15/24 17:00 11/17/24 17:01 IV CONT 1 mg/hr .Q24H CAROLYNE 2 mls/hr Administration 1 MG/HR Lorazepam 1 mg 11/15/24 06:48 11/18/24 09:27 Lorazepam Inj (*Crx) 2 Mg/Ml Vial IV PUSH 1 mg Q4H PRN Administration Anxiety or air hunger Morphine Sulfate 2 mg 11/15/24 06:48 11/18/24 09:27 Morphine Sulfate (*Crx) 2 Mg/Ml Inj IV PUSH 2 mg Q2H PRN Administration pain, dyspnea, restlessness Prochlorperazine Edisylate 10 mg 11/15/24 06:56 Prochlorperazine Edisylate 10 Mg/2 Ml Vial IV PUSH Q6H PRN Nausea And Vomiting
[2024-11-18 17:30] VITALS: PULSE 98; RESP 18
[2024-11-18] MEDS: MORPHINE 50 MG/NS 100ML (*CRX) 50 MG/100 ML BAG IV CONT (17:30)
[2024-11-18 20:00] VITALS: BP 121/62; PULSE 106; RESP 18; TEMP 35.9; O2SAT 96
[2024-11-19] MEDS: MORPHINE SULFATE (*CRX) 2 MG/ML INJ IV PUSH ×3 (05:42→19:49)
[2024-11-19 08:00] VITALS: BP 140/70; PULSE 109; RESP 16; TEMP 35.9; O2SAT 96; O2SAT 98
[2024-11-19] MEDS: LORazepam INJ (*CRX) 2 MG/ML VIAL 1 MG IV PUSH ×2 (14:37→19:39)
[2024-11-19] MEDS: MORPHINE 50 MG/NS 100ML (*CRX) 50 MG/100 ML BAG IV CONT (18:01)
--- NOTE | 2024-11-19 18:49 | P.PNIM_ITS ---
Progress Note: A&P Assessment and Plan (1) Hospice care: Code(s): Z51.5 - Encounter for palliative care Status: Acute Assessment and Plan: * Meets inpatient hospice criteria due to requiring continuous IV morphine for control of pain and dyspnea * P.r.n. palliative regimen ordered * 11/15/2024 Discussed care and prognosis with family at bedside * 11/17/2024 Required PRN Ativan earlier today. Now unresponsive with apneas lasting 10-15 seconds. Seems to be declining rapidly. Discussed care and prognosis with son at bedside. * 11/18/2024 Required PRN Ativan earlier today. Remains unresponsive with respirations now about 4 per minute and BP trending down. Discussed with son at bedside. * 11/19/2024 Very restless if scheduled Ativan dose late. Hypothermic. Tachycardic. Continues to require continuous IV morphine for control of pain and dyspnea. No PO intake. Discussed with son at bedside. (2) Fracture of multiple ribs of left side: Code(s): S22.42XA - Multiple fractures of ribs, left side, initial encounter for closed fracture Status: Inactive (3) Hemothorax on left: Code(s): J94.2 - Hemothorax Status: Inactive (4) Pneumothorax on left: Code(s): J93.9 - Pneumothorax, unspecified Status: Inactive (5) Tension pneumothorax: Code(s): J93.0 - Spontaneous tension pneumothorax Status: Inactive Subjective Date/time seen: 11/19/24 18:49 Interval history: Very restless if scheduled Ativan dose late. Hypothermic. Tachycardic. Review of Systems Review of Systems: ROS unobtainable: Yes unobtainable due to medical condition Exam Narrative: HEENT: PERRL, sclerae nonicteric, pharyngeal mucosa pink and intact NECK: No JVD, adenopathy, or thyromegaly CHEST: Decreased breath sounds left chest with normal effort HEART: NL S1/S2, regular, no murmur ABDOMEN: BS hypoactive, soft, nontender EXTREMITIES: No cyanosis, edema, or clubbing NEUROLOGIC: CN intact and symmetric to inspection MUSCULOSKELETAL: No gross deformity to visual inspection PSYCH: Unresponsive to verbal or tactile stimuli Objective Data Vital Signs Vital Signs: Vital Signs - 24 hr 11/18/24 20:00 11/19/24 08:00 11/19/24 08:00 Temperature 96.7 F L 96.7 F L Pulse Rate 106 H 109 H Respiratory Rate 18 16 Blood Pressure 121/62 140/70 Pulse Oximetry 96 96 98 Oxygen Delivery Nasal Cannula Oxygen Flow Rate 3 Intake/Output Intake/Output: Intake & Output 11/16/24 11/17/24 11/18/24 11/19/24 23:59 23:59 23:59 23:59 Intake Total 48.8 47.5 49 49 Output Total 550 200 300 250 Balance -501.2 -152.5 -251 -201 Meds/Results Medications: Active Medications Generic Name Dose Route Start Last Admin Trade Name Freq PRN Reason Stop Dose Admin Acetaminophen 1,000 mg 11/15/24 06:58 Acetaminophen 500 Mg Tablet PO TID PRN Mild Pain (1-3) or Fever Artificial Tears 1 drop 11/15/24 07:05 Artificial Tears Ophth Soln 15 Ml Bottle EACH EYE Q4H PRN Dry Eye(s) Bisacodyl 10 mg 11/15/24 06:57 Bisacodyl 10 Mg Suppository RECTAL DAILY PRN Constipation Glycopyrrolate 0.1 mg 11/15/24 06:55 Glycopyrrolate Inj (*Sp) 0.2 Mg/Ml Vial IV PUSH Q4H PRN secretions Morphine Sulfate 50 mg in 100 mls @ 2 mls/hr 11/15/24 17:00 11/19/24 18:01 IV CONT 1 mg/hr .Q24H CAROLYNE 2 mls/hr Administration 1 MG/HR Lorazepam 1 mg 11/15/24 06:48 11/19/24 14:37 Lorazepam Inj (*Crx) 2 Mg/Ml Vial IV PUSH 1 mg Q4H PRN Administration Anxiety or air hunger Morphine Sulfate 2 mg 11/15/24 06:48 11/19/24 08:46 Morphine Sulfate (*Crx) 2 Mg/Ml Inj IV PUSH 2 mg Q2H PRN Administration pain, dyspnea, restlessness Prochlorperazine Edisylate 10 mg 11/15/24 06:56 Prochlorperazine Edisylate 10 Mg/2 Ml Vial IV PUSH Q6H PRN Nausea And Vomiting
[2024-11-19] MEDS: GLYCOPYRROLATE INJ (*SP) 0.2 MG/ML VIAL 0.1 MG IV PUSH (19:48)
[2024-11-19 20:00] VITALS: BP 94/60; PULSE 131; RESP 12; TEMP 37.3; O2SAT 93
[2024-11-20] MEDS: MORPHINE SULFATE (*CRX) 2 MG/ML INJ IV PUSH ×3 (01:31→18:04)
[2024-11-20] MEDS: LORazepam INJ (*CRX) 2 MG/ML VIAL 1 MG IV PUSH ×3 (01:31→23:45)
[2024-11-20 08:00] VITALS: BP 89/45; PULSE 120; RESP 10; TEMP 36.2; O2SAT 95
--- NOTE | 2024-11-20 10:55 | WPDPN ---
Progress Note: A&P Assessment and Plan (1) Hospice care: Code(s): Z51.5 - Encounter for palliative care Status: Acute Assessment and Plan: Pt unresponsive to all stimuli. No meaningful movement. Drooping of nasolabial folds. NPO for several days. imminnet. No s/s of discomfort. Plan Pt received PRN doses this morning of Morphine and Ativan r/t increased SOB. Inc to morphine gtts to 2 mg/hr. Keep PRN doses the same. Time Spent With Patient Time with patient: 15 - 25 minutes Subjective Date/time seen: 11/20/24 10:55 Interval history: Pt is an 84 year old female admitted to [facility] for cerebral atherosclerosis and polytrauma. Pt is bedbound and unresponsive to all stimuli. No meaningful movement. Pt given PRN dose of morphine and ativan this AM due to dyspnea. Dose effective. Pt also needed PRN meds yesterday due to increased restlessness. Review of Systems Review of Systems: ROS unobtainable: Yes unobtainable due to medical condition and unobtainable due to mental status Constitutional: Constitutional: Reports as per HPI Cardiovascular: Cardiovascular: Reports as per HPI Respiratory: Respiratory: Reports as per HPI Gastrointestinal: Gastrointestinal: Reports as per HPI Genitourinary: Genitourinary: Reports urinary incontinence Neurologic: Reports as per HPI Exam Const: General: comfortable and no acute distress Limitations: altered mental status Neck: Neck: normal visual inspection Chest: Chest palpation & inspection: normal inspection of the chest Resp: Effort & Inspection: normal respiratory effort Auscultation: diminished lung sounds Cardio: Rate: regular rate Rhythm: regular rhythm Heart sounds: S1 normal heart sound present, S2 normal heart sound present and Murmur heart sound present Peripheral pulses: Peripheral pulses 2+ throughout and radial pulses present GI: Inspection: normal to inspection GI Palp: Yes Soft to palpation Auscultation: normal bowel sounds Rectal Exam: deferred : Other: purewick used and effective. Decreased UOP Skin: General skin exam: normal color Neuro: Other: unresponsive to all stimuli Objective Data Vital Signs Vital Signs: Vital Signs - 24 hr 11/19/24 20:00 11/19/24 20:00 Temperature 37.3 C Pulse Rate 131 H Respiratory Rate 12 Blood Pressure 94/60 L Pulse Oximetry 93 Oxygen Delivery Nasal Cannula Oxygen Flow Rate 3 Intake/Output Intake/Output: Intake & Output 11/17/24 11/18/24 11/19/24 11/20/24 23:59 23:59 23:59 23:59 Intake Total 47.5 49 49 0 Output Total 200 300 250 100 Balance -152.5 -251 -201 -100 Meds/Results Medications: Active Medications Generic Name Dose Route Start Last Admin Trade Name Freq PRN Reason Stop Dose Admin Acetaminophen 1,000 mg 11/15/24 06:58 Acetaminophen 500 Mg Tablet PO TID PRN Mild Pain (1-3) or Fever Artificial Tears 1 drop 11/15/24 07:05 Artificial Tears Ophth Soln 15 Ml Bottle EACH EYE Q4H PRN Dry Eye(s) Bisacodyl 10 mg 11/15/24 06:57 Bisacodyl 10 Mg Suppository RECTAL DAILY PRN Constipation Glycopyrrolate 0.1 mg 11/15/24 06:55 11/19/24 19:48 Glycopyrrolate Inj (*Sp) 0.2 Mg/Ml Vial IV PUSH 0.1 mg Q4H PRN Administration secretions Morphine Sulfate 50 mg in 100 mls @ 2 mls/hr 11/15/24 17:00 11/19/24 18:01 IV CONT 1 mg/hr .Q24H CAROLYNE 2 mls/hr Administration 1 MG/HR Lorazepam 1 mg 11/15/24 06:48 11/20/24 08:45 Lorazepam Inj (*Crx) 2 Mg/Ml Vial IV PUSH 1 mg Q4H PRN Administration Anxiety or air hunger Morphine Sulfate 2 mg 11/15/24 06:48 11/20/24 08:45 Morphine Sulfate (*Crx) 2 Mg/Ml Inj IV PUSH 2 mg Q2H PRN Administration pain, dyspnea, restlessness Prochlorperazine Edisylate 10 mg 11/15/24 06:56 Prochlorperazine Edisylate 10 Mg/2 Ml Vial IV PUSH Q6H PRN Nausea And Vomiting
[2024-11-20] MEDS: MORPHINE 50 MG/NS 100ML (*CRX) 50 MG/100 ML BAG IV CONT (18:03)
[2024-11-20 20:00] VITALS: PULSE 110; RESP 10; O2SAT 100
[2024-11-20 20:55] VITALS: BP 61/35; PULSE 110; RESP 10; TEMP 37.4; O2SAT 100
[2024-11-21] MEDS: MORPHINE SULFATE (*CRX) 2 MG/ML INJ IV PUSH (00:30)
[2024-11-21] MEDS: LORazepam INJ (*CRX) 2 MG/ML VIAL 1 MG IV PUSH ×2 (03:43→11:11)
[2024-11-21 08:00] VITALS: O2SAT 100
--- NOTE | 2024-11-21 13:41 | PC.NURSE ---
Patient at 1138.
--- NOTE | 2024-12-05 20:26 | P.DN_ITS ---
Discharge Summary Date and Time Date of : 11/21/24 Time of : 11:38 Provider Pronounced By: 2 RNs Name of First RN That Pronounced: Celia Condon Name of Second RN That Pronounced: Mercedes Rothman Probable Cause of Probable Cause of : Acute respiratory failure due to tension pneumothorax and hemothorax on the left due to multiple rib fractures due to fall from standing height Summary Hospital Course: Admitted to inpatient hospice service for symptom management. Medications were titrated to comfort. Mrs. Cristina peacefully. 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
== END 2024-11-21 11:38 | disposition expired | DRG 951 ==
PROVIDERS: Admitting Provider Internal Medicine; PCP Internal Medicine; Visit Provider Internal Medicine
DX: Z51.5 Encounter for palliative care (principal); J93.0 Spontaneous tension pneumothorax; I26.93 Single subsegmental thrombotic pulmonary embolism without acute cor pulmonale; S22.42XA Multiple fractures of ribs, left side, initial encounter for closed fracture; X58.XXXA Exposure to other specified factors, initial encounter; I67.2 Cerebral atherosclerosis; I10 Essential (primary) hypertension; E03.9 Hypothyroidism, unspecified; E78.5 Hyperlipidemia, unspecified; F03.90 Unspecified dementia, unspecified severity, without behavioral disturbance, psychotic disturbance, mood disturbance, and anxiety; Z96.652 Presence of left artificial knee joint; Z66 Do not resuscitate; Z74.01 Bed confinement status; Z90.710 Acquired absence of both cervix and uterus
CPT/HCPCS: A9270; J1596; J2060; J2270